=== PATIENT | female | born 1945 | race Caucasian/White ===

== ENCOUNTER 2018-05-14 06:09 | Inpatient (IN) | payer OTHER ==
[2018-05-11 13:33] VITALS: BMI 28.1
[2018-05-14] MEDS ORDERED: HEPARIN NA (PORCINE) 5,000 UNITS/ML 1ML VIAL ONE (07:15)
[2018-05-14] MEDS ORDERED: BENZOIN TINCTURE SWABSTICK TP ONE (07:16)
[2018-05-14] MEDS ORDERED: THROMBIN (BOVINE) 5,000 UNIT VIAL TP ONE ×2 (07:16→09:50)
[2018-05-14] MEDS ORDERED: BUPIVACAINE HCL/PF 0.25% (2.5MG/ML) 10 ML VIAL ONE (07:16)
[2018-05-14] MEDS ORDERED: fentaNYL CITRATE 250 MCG/5 ML VIAL ONE (07:28)
[2018-05-14] MEDS ORDERED: ROCURONIUM BROMIDE 50 MG/5 ML VIAL ONE (07:29)
[2018-05-14] MEDS ORDERED: LIDOCAINE HCL/PF 2% SDV 5ML VIAL ONE (07:29)
[2018-05-14] MEDS ORDERED: DEXAMETHASONE SOD PHOSPHATE 4 MG/1 ML VIAL ONE ×2 (07:29→08:16)
[2018-05-14] MEDS ORDERED: MIDAZOLAM HCL 2 MG/2 ML SINGLE DOSE VIAL ONE (07:29)
[2018-05-14] MEDS ORDERED: ONDANSETRON 4 MG/2 ML VIAL ONE (07:29)
[2018-05-14] MEDS ORDERED: SUCCINYLCHOLINE CHLORIDE 200 MG/10 ML VIAL ONE (07:29)
[2018-05-14] MEDS ORDERED: PROPOFOL 20 ML ONE ×11 (07:29→10:56)
[2018-05-14] MEDS ORDERED: VANCOMYCIN 1,000 MG VIAL (RESTRICTED TO ID ONLY) ONE (07:38)
[2018-05-14] MEDS ORDERED: ceFAZolin SODIUM 1 GM VIAL ONE (07:38)
[2018-05-14] MEDS ORDERED: TRANEXAMIC ACID 1000 MG/10 ML VIAL ONE (07:38)
[2018-05-14] MEDS ORDERED: VANCOMYCIN 1,000 MG VIAL (RESTRICTED TO ID ONLY) IVPB ONE (07:50)
[2018-05-14] MEDS ORDERED: PHENYLEPHRINE HCL 10 MG/1 ML SINGLE DOSE VIAL ONE (08:25)
[2018-05-14] MEDS ORDERED: HYDROmorphone HCl 2 MG/ML VIAL ONE (08:29)
[2018-05-14] MEDS ORDERED: ceFAZolin SODIUM 1 GM VIAL IVPB ONE (08:35)
[2018-05-14] MEDS ORDERED: TRANEXAMIC ACID 1000 MG/10 ML VIAL IVPB ONE (09:49)
--- NOTE | 2018-05-14 11:32 | PN ---
Progress Note (short form) - Note Progress Note: 72F s/p C4-C5, C5-C6 discectomies; C5 corpectomy; C4, C6 partial corpectomies; C4-C6 anterior cervical decompression and instrumented fusion POD #0. -Admit to ICU x 24 hrs. for airway observation; OK to discharge home or downgrade to floor 05/15/2018 if airway stable. -Maintain head of bed 60 degrees. -Pain medication: per anaesthesia team; no DRIED YEAST SUPERVISOR; NO NSAID's. -DVT PPx: -Mechanical only: ANDREW's, SCD's. -Post-op Ancef x 2 doses. -f/u AM labs. -Incentive spirometry. -PT/OT/Rehab, OOB. -WBAT B/L UE & LE. -d/c Ybarra catheter at midnight; f/u TOV (8 hours max). -Keep dressing clean & dry. -No heavy lifting, bending or twisting. -Advance diet as tolerated. -B/L UE & LE NV checks. -Care per ICU & primary medical hospitalist teams. -Discharge planning: f/u [facility] [place] office Monday05/25/2018; call for appointment; . Narinedr Rbolero MD (Orthopaedic Surgery).
[2018-05-14] MEDS ORDERED: ONDANSETRON 4 MG/2 ML VIAL IVPUSH PRN (11:36)
[2018-05-14] MEDS ORDERED: oxyCODONE HCL 5 MG TABLET PO PRN ×2 (11:36)
[2018-05-14] MEDS ORDERED: NEXIUM PO PRN (11:36)
--- NOTE | 2018-05-14 11:36 | OP ---
Operative Note - Note: Operative Date: 05/14/18 Pre-Operative Diagnosis: 1. Cervical intervertebral disc disorder. 2. Cervical kyphosis. 3. Cervical spondylolisthesis. 4. Cervical radiculopathy. 5. Cervical myelopathy. 6. Functional & neurological decline Operation: 1. C4-C5, C5-C6 discectomies. 2. C5 corpectomy. 3. C4, C6 partial corpectomies. 4. C4-C6 anterior arthrodesis. 5. Insertional biomechanical device (C4-C6). 6. C4-C6 anterior instrumentation. 7. Bone autograft. 8. Bone allograft. 9. Intra-operative fluoroscopy. 10. Intra-operative neural monitoring Post-Operative Diagnosis: Same as Pre-op Surgeon: Narinder Roblero Dot Compliance Manager: Miguel Ángel Roblero Anesthesiologist/PICKER OPERATOR: Willow Alba Anesthesia: General Specimens Removed: C4-C5, C5-C6 disc Estimated Blood Loss (mls): 25 Fluid Volume Replaced (mls): 1,400 (Crystalloid) Operative Report Dictated: Yes
[2018-05-14] MEDS: LACTATED RINGERS SOLUTION 1,000 ML IV SCH (12:56)
[2018-05-14] MEDS: ACETAMINOPHEN 325 MG TABLET (FP) PO SCH ×2 (13:10→17:52)
--- NOTE | 2018-05-14 13:27 | CONSULT ---
Consultation: REQUESTING PROVIDER: Dr Shearer CONSULT REQUEST: We have been asked to medically evaluate this patient for Post op ICU monitor. HISTORY OF PRESENT ILLNESS: 72 year old male with pmhx of HTN presented for cervical spine surgery C3-C4-C5 after 2.5 years of neck and shoulder pain radiating to both shoulders and arms. reports numbness and tingling in right hand fingers.and mild pain 4-5 /10 . Denies any fever, chills, N/V/D/C, denies any chest pain , sob, palpitation , orthopnea , dyspnea, denies any urinary incontinence ,incorporesis , or numbness, tingling in saddle area. denies any weakness in lower or upper ext PMH:HTN PSH: Hysterectomy, cholecystectomy FH: BP , Cancer in sister(breast),Lukemia in mother , bone cancer in her father. Social hx: denies any smoking alcohol or drug abuse Allergis: NKDA REVIEW OF SYSTEMS: numbness and tingling in right hand fingers , sore throat CONSTITUTIONAL: Absent: fever, chills, diaphoresis, generalized weakness, malaise, loss of appetite, weight change HEENT: Absent: rhinorrhea, nasal congestion, throat pain, throat swelling, difficulty swallowing, mouth swelling, ear pain, eye pain, visual changes CARDIOVASCULAR: Absent: chest pain, syncope, palpitations, irregular heart rate, lightheadedness , peripheral edema RESPIRATORY: Absent: cough, shortness of breath, dyspnea with exertion, orthopnea, wheezing, stridor, hemoptysis GASTROINTESTINAL: Absent: abdominal pain, abdominal distension, nausea, vomiting, diarrhea, constipation, melena, hematochezia GENITOURINARY: Absent: dysuria, frequency, urgency, hesitancy, hematuria, flank pain, genital pain MUSCULOSKELETAL: neck pain Absent: myalgia, arthralgia, joint swelling, back pain, SKIN: Absent: rash, itching, pallor HEMATOLOGIC/IMMUNOLOGIC: Absent: easy bleeding, easy bruising, lymphadenopathy, frequent infections ENDOCRINE: Absent: unexplained weight gain, unexplained weight loss, heat intolerance, cold intolerance NEUROLOGIC: Absent: headache, focal weakness or paresthesias, dizziness, unsteady gait, seizure, mental status changes, bladder or bowel incontinence PSYCHIATRIC: Absent: anxiety, depression, suicidal or homicidal ideation, hallucinations. PHYSICAL EXAMINATION Vital Signs - 24 hr 12/05/14/18 05/14/18 06:44 11:30 11:45 Temperature 97.7 F 98.1 F 97.9 F Pulse Rate 72 74 75 Respiratory 20 18 12 Rate Blood Pressure 125/84 125/55 L 123/70 O2 Sat by Pulse 100 97 96 Oximetry (%) 05/14/18 05/14/18 05/14/18 12:00 12:15 12:30 Temperature 98.2 F 98.1 F 97.6 F Pulse Rate 97 H 77 73 Respiratory 13 12 10 Rate Blood Pressure 119/57 L 122/64 115/61 O2 Sat by Pulse 98 96 96 Oximetry (%) GENERAL: Awake, alert, and fully oriented, in no acute distress. HEAD: Normal with no signs of trauma. EYES: Pupils equal, round and reactive to light, extraocular movements intact, sclera anicteric, EARS, NOSE, THROAT: dry MM NECK: Normal range of motion, supple , surgery incision covered with gauze LUNGS: Breath sounds equal, clear to auscultation bilaterally. No wheezes, and no crackles. No accessory muscle use. HEART: Regular rate and rhythm, normal S1 and S2 without murmur, rub or gallop. ABDOMEN: Soft, nontender, not distended, hypoactive bowel sounds, no guarding, MUSCULOSKELETAL: Normal range of motion at all joints. No bony deformities or tenderness. No CVA tenderness. UPPER EXTREMITIES: 2+ pulses, warm, well-perfused. No cyanosis. No clubbing. LOWER EXTREMITIES: 2+ pulses, warm, well-perfused. No calf tenderness. No peripheral edema. NEUROLOGICAL: Cranial nerves II-XII intact. Normal speech. gait not observed strength 5/5 upper and lower ext , sensation intact , reflexes intact. PSYCHIATRIC: Cooperative. Good eye contact. Appropriate mood and affect. SKIN: Warm, dry, Laboratory Results - last 24 hr 05/14/18 05/14/18 06:34 06:45 Blood Type A POSITIVE A POSITIVE Antibody Screen Negative Active Medications Generic Name Dose Route Start Last Admin Trade Name Freq PRN Reason Stop Dose Admin Acetaminophen 650 mg 05/14/18 11:45 05/14/18 13:10 Tylenol - PO 650 mg Q6H DELROY Administration Hydrochlorothiazide 25 mg 05/15/18 10:00 Hctz - PO DAILY DELROY Lactated Ringer's 1,000 mls @ 100 mls/hr 05/14/18 11:45 05/14/18 12:56 Lactated Ringers Solution IV 100 mls/hr ASDIR DELROY Administration Non-Formulary Medication 1 tab 05/15/18 10:00 Metoprolol Succinate [Kapspargo Sprinkle] PO DAILY DELROY Non-Formulary Medication 1 tab 05/14/18 11:36 Nexium 24hr PO PRN PRN DYSPEPSIA Ondansetron HCl 4 mg 05/14/18 11:36 Zofran Injection IVPUSH Q6H PRN NAUSEA AND/OR VOMITING Oxycodone HCl 5 mg 05/14/18 11:36 05/14/18 13:13 Roxicodone - PO 5 mg Q4H PRN Administration PAIN LEVEL 6-10 Oxycodone HCl 10 mg 05/14/18 11:36 Roxicodone - PO Q4H PRN PAIN LEVEL 7 - 10 Tramadol HCl 50 mg 05/14/18 11:36 Ultram - PO Q6H PRN PAIN LEVEL 1-5 ASSESSMENT/PLAN: 72 year old male with pmhx of HTn presented to the hospital for cervical spine surgery admitted to ICU for monitoring # C4-C5, C5-C6 discectomies POD #0 * estimated blood loss 25 cc volum replenished 1400 CC/hr crystaloid * pt is doing well ,5/5 strength upper and lower ext * reports some numbness in right hand fingers but no weakness * neck FROM * pain control per anesthesia * bed rest * low sodium diet * BP monitor * monitoring tech * No NSAIDS * IV fluids 100 CC/hr LR # BP * controlled , resume home meds HCTZ, Norvasc # FEN * f: RL @ 100 CC/hr * E: Monitor * N: Low sodium diet # proph * Dvts: SCDS , no chemical prophylaxis # Dispo * Monitor in ICU 24 hour * if no complications , transfer to floor tomorrow Dispo: We will continue to follow the patient. Thank you for this consultative opportunity. Visit type - Emergency Visit Emergency Visit: No - New Patient This patient is new to me today: Yes Date on this admission: 05/14/18 - Critical Care Critical Care patient: Yes Total Critical Care Time (in minutes): 45 Critical Care Statement: The care of this patient involved high complexity decision making to prevent further life threatening deterioration of the patient 's condition and/or to evaluate & treat vital organ system(s) failure or risk of failure.
--- NOTE | 2018-05-14 16:52 | HP ---
CHIEF COMPLAINT: Neck and shoulder pain, scheduled cervical discectomies with Dr. Roblero HISTORY OF PRESENT ILLNESS: 72 year old female with a PMH significant for HTN presented to [facility] for scheduled cervical discectomies with Dr. Roblero. She reports having neck and shoulder pain for about 2 and a half years. Procedure was without complications , minimal blood loss. Now admitted to the ICU for post-op monitoring. Patient is doing well and denies pain. She has been able to have some fluids since her procedure. Recent Travel: No PAST MEDICAL HISTORY: Hypertension PAST SURGICAL HISTORY: Hysterectomy Cholecystectomy Social History: Smoking: Denies Alcohol: Denies Drugs: Denies Family History: Mother: Leukemia Father: Osteosarcoma Sister: Breast Cancer Allergies No Known Allergies Allergy (Verified 05/11/18 13:37) HOME MEDICATIONS: Home Medications Medication Instructions Recorded Hydrochlorothiazide [Hctz -] 25 mg PO DAILY 05/11/18 Metoprolol Succinate [Kapspargo 1 tab PO DAILY 05/11/18 Sprinkle] Nexium 24Hr 1 tab PO PRN PRN 05/11/18 REVIEW OF SYSTEMS CONSTITUTIONAL: Absent: fever, chills, diaphoresis, generalized weakness, malaise, loss of appetite, weight change HEENT: Absent: rhinorrhea, nasal congestion, throat pain, throat swelling, difficulty swallowing, mouth swelling, ear pain, eye pain, visual changes CARDIOVASCULAR: Absent: chest pain, syncope, palpitations, irregular heart rate, lightheadedness , peripheral edema RESPIRATORY: Absent: cough, shortness of breath, dyspnea with exertion, orthopnea, wheezing, stridor, hemoptysis GASTROINTESTINAL: Absent: abdominal pain, abdominal distension, nausea, vomiting, diarrhea, constipation, melena, hematochezia GENITOURINARY: Absent: dysuria, frequency, urgency, hesitancy, hematuria, flank pain, genital pain MUSCULOSKELETAL: (+) mild post op pain in her neck Absent: myalgia, arthralgia, joint swelling, back pain, neck pain SKIN: Absent: rash, itching, pallor HEMATOLOGIC/IMMUNOLOGIC: Absent: easy bleeding, easy bruising, lymphadenopathy, frequent infections ENDOCRINE: Absent: unexplained weight gain, unexplained weight loss, heat intolerance, cold intolerance NEUROLOGIC: Absent: headache, focal weakness or paresthesias, dizziness, unsteady gait, seizure, mental status changes, bladder or bowel incontinence PSYCHIATRIC: Absent: anxiety, depression, suicidal or homicidal ideation, hallucinations. PHYSICAL EXAMINATION Vital Signs - 24 hr 05/14/18 05/14/18 05/14/18 06:44 11:30 11:45 Temperature 97.7 F 98.1 F 97.9 F Pulse Rate 72 74 75 Respiratory 20 18 12 Rate Blood Pressure 125/84 125/55 L 123/70 O2 Sat by Pulse 100 97 96 Oximetry (%) 05/14/18 05/14/18 05/14/18 12:00 12:15 12:30 Temperature 97.8 F 98.1 F 97.6 F Pulse Rate 77 77 73 Respiratory 11 12 10 Rate Blood Pressure 119/57 L 122/64 115/61 O2 Sat by Pulse 98 96 96 Oximetry (%) 05/14/18 14:00 Temperature Pulse Rate 66 Respiratory 12 Rate Blood Pressure 118/62 O2 Sat by Pulse Oximetry (%) GENERAL: Awake, alert, and fully oriented, in no acute distress. HEAD: Normal with no signs of trauma. EYES: Pupils equal, round and reactive to light, extraocular movements intact, sclera anicteric, conjunctiva clear. No lid lag. EARS, NOSE, THROAT: Dry bandage over anterior neck CDI, nares patent, oropharynx clear without exudates. Moist mucous membranes. NECK: Normal range of motion, supple without lymphadenopathy, JVD, or masses. LUNGS: +NC, breath sounds equal, clear to auscultation bilaterally. No wheezes, and no crackles. No accessory muscle use. HEART: Regular rate and rhythm, normal S1 and S2 without murmur, rub or gallop. ABDOMEN: Soft, nontender, not distended, normoactive bowel sounds, no guarding, no rebound, no masses. No hepatomegaly or splenomegaly. : +Castorena draining clear yellow urine MUSCULOSKELETAL: Normal range of motion at all joints. No bony deformities or tenderness. No CVA tenderness. UPPER EXTREMITIES: 2+ pulses, warm, well-perfused. No cyanosis. No clubbing. No peripheral edema. LOWER EXTREMITIES: 2+ pulses, warm, well-perfused. No calf tenderness. No peripheral edema. NEUROLOGICAL: No facial droop, tongue midline, 5/5 strength all 4 extremities, normal speech. Normal gait. PSYCHIATRIC: Cooperative. Good eye contact. Appropriate mood and affect. SKIN: Warm, dry, normal turgor, no rashes or lesions noted, normal capillary refill. Laboratory Results - last 24 hr 05/14/18 05/14/18 06:34 06:45 Blood Type A POSITIVE A POSITIVE Antibody Screen Negative ASSESSMENT/PLAN: 72 year old female with a PMH significant for HTN presented to [facility] for scheduled cervical discectomies with Dr. Roblero. Now admitted to the ICU for post op monitoring. S/p C4 - C5, C5 - C6 discectomies - POD #0 - Given 2 doses of Ancef post-op - Pain management - Apap 650 mg, Tramadol 50 mg, Oxycodone 5 mg and 10 mg q4h PRN - HOB 60 degrees - D/c castorena catheter at midnight - PT, OOB - F/u with Dr. Roblero on Monday, call for an appointment [phone] HTN - Controlled - Continue home medications - HCZT 25 mg PO qday - Metoprolol Succinate 1 Prophylaxis - DVD: SCDs - GI: Nexium FEN - LR @ 100cc/hr - Replete as needed - Soft diet, Na restricted diet Disp: Patient may be appropriate for d/c tomorrow if stable. Visit type - Emergency Visit Emergency Visit: No - New Patient This patient is new to me today: Yes Date on this admission: 05/14/18 - Critical Care Critical Care patient: Yes Total Critical Care Time (in minutes): 20
--- NOTE | 2018-05-14 17:17 | OP ---
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 OPERATION PERFORMED: 1. C5 corpectomy. 2. Partial corpectomy C4, partial corpectomy C6. 3. Insertion of cage. 4. Anterior plating, C3 to C6. 5. Use of biplane fluoroscopy and intraoperative neuromonitoring. ANESTHESIA: General. ANTIBIOTICS GIVEN: Kefzol 2 g, vancomycin 1 g, Decadron 10 mg given. PROCEDURE: The patient correctly identified, brought to the operating room, placed supine on the operating room table. A transverse box was placed behind the scapulae and the neck was extended. Neuromonitoring revealed no changes in the neuromonitoring features A routine prep with Betadine scrub solution, wiped with alcohol and DuraPrep applied. Window drape applied to the neck. An oblique incision was made into the Yadi line at the level of the cricothyroid interval. Dissection was taken through subplatysma. The platysma was split longitudinally. This enabled easy access to the prevertebral fascia. The longus colli was gently retracted and with unipolar Bovie dissected off the vertebral bodies, left- and right-hand side. A pin was placed and found to be seated in the C5-6 disk. Once this had been completed, the retractors were placed with easy medial/lateral retraction. The [place] pins were placed in C3 and C6. These were verified with fluoroscopic x-rays to show positioning of the pins as well as positioning of that the correct level of disk and vertebral bodies to be resected. It must be noted as seen on the MR scan as well as the x-ray a diskectomy would not suffice and provide adequate decompression. The entire vertebral body had to be taken out because of the retroverted position. Using a Midas Matchstick bur, 2 longitudinal gutters were placed right down to the posterior cortical bone of the C5 vertebral body. The disk at C4-5 and the disk at C5-6 were appropriately resected. The remaining bone was removed piecemeal with the rongeur, this for bone-grafting purposes. The problem seen on the MR scan of the lesion appeared to be a small trapped node which itself caused significant shortening in the remaining bone of the actual C5 vertebral body, another reason for a corpectomy having been performed, as the screw fixation at C5 would have failed. Once the disks were removed at C4-5 and C5-6, a complete resection of the actual C5 vertebral body was achieved. The entire theca was freed. At first the longitudinal ligament was ta michael down. The disks at C4 required some resection of bone because of the osteophyte-disk complex nature and part of the C6 vertebral body also likewise needed possible removal of vertebral body bone. A size 12 x 14 x 24 6-degree Quinn[place]ec cage inserted. This was packed with autologous bone, that was the bone harvested from the vertebral bodies, and this as gently tamped into position. The distractor device was first seated into the vertebral bodies of C4andd C6 and the distractor device once removed allowed ligamentotaxis to collapse onto the cage and the cage was snugly held and solidly fixed. A size 20 mm Simpliciti was placed onto the vertebral bodies, 4 screws. These were precision screws, 12-mm screws, seated and self-tapping into the C4 vertebral body and 2 at the C6 vertebral body, providing a solid fixation. Hemostasis was completely achieved. The wounds were thoroughly lavaged throughout the procedure. The closure was followed: Deep layer with 3-0 Vicryl, platysma and subcutaneous 3-0 Vicryl, skin 3-0 Monocryl with Steri-Strips. No drains utilized. Blood loss minimal, no more than 50 mL. Operation went well. It must be noted that at the end of the procedure, it was reported to me by the neuromonitoring team that the actual neural numbers improved significantly, almost to baseline numbers after the corpectomy and caging was performed. MD SELENA [id number] KIM
[2018-05-15] MEDS: ACETAMINOPHEN 325 MG TABLET (FP) PO SCH ×4 (05:54→13:07)
[2018-05-15 06:27] LABS: HEMATOCRIT 40.8 % (32.4-45.2); HEMOGLOBIN 13.6 GM/dL (10.7-15.3); MCH 29.3 pg (25.7-33.7); MCHC 33.4 g/dl (32.0-36.0); MEAN CELL VOLUME 87.7 fl (80-96); MEAN PLT VOLUME 8.8 fl (7.5-11.1); PLATELET COUNT 279 K/MM3 (134-434); RBC 4.64 M/mm3 (3.60-5.2); RDW 12.8 % (11.6-15.6); WHITE BLOOD COUNT 13.9 K/mm3 (4.0-10.0)
[2018-05-15 06:55] LABS: ANION GAP 4 MMOL/L (8-16); BLOOD UREA NITROGEN 14 mg/dL (7-18); CALCIUM 9.2 mg/dL (8.5-10.1); CHLORIDE 102 mmol/L (98-107); CO2 33 mmol/L (21-32); CREATININE 0.8 mg/dL (0.55-1.3); GLUCOSE,RANDOM 110 mg/dL (74-106); POTASSIUM 3.1 mmol/L (3.5-5.1); SODIUM 139 mmol/L (136-145)
[2018-05-15] MEDS ORDERED: POTASSIUM CHLORIDE TABS 20 MEQ TABLET.ER (FP) PO ONE ×2 (06:59→08:45)
[2018-05-15] MEDS ORDERED: METOPROLOL SUCCINATE PO SCH (10:00)
[2018-05-15] MEDS ORDERED: HYDROCHLOROTHIAZIDE 25 MG TABLET (FP) PO SCH (10:00)
[2018-05-15 10:22] VITALS: TEMP 97.6
--- NOTE | 2018-05-15 11:24 | PN ---
Progress Note (short form) - Note Progress Note: Post op day#1.S/P C4-C6 ACDF under GA uneventful.P80,BP 120/65 and Spo2 97 on RA.Patient stable and c/on pain score of 3-4/10 for which she is on medication.No any anesthesia related problem.Patient DC from the anesthesia care.
--- NOTE | 2018-05-15 12:00 | DS ---
Physical Exam: SUBJECTIVE: Patient seen and examined - feels well - no complaints - minimal pain. No CP/Palps/abdo pain/nausea/vomting. Tolerating po intake. Improvement in tingling of fingers RUE. OBJECTIVE: Vital Signs Period Temp Pulse Resp BP Sys/Han Pulse Ox Last 24 Hr 97.4 F-98.2 F 61-97 10-14 106-132/52-74 96-100 PHYSICAL EXAM GENERAL: The patient is awake, alert, and fully oriented, in no acute distress. HEAD: Normal with no signs of trauma. EYES: PERRL, extraocular movements intact ENT: Dressing over anterior aspect of neck dry LUNGS: Breath sounds equal, clear to auscultation bilaterally, no wheezes, no crackles, no accessory muscle use. HEART: Regular rate and rhythm, S1, S2 ABDOMEN: Soft, nontender, nondistended, normoactive bowel sounds, no guarding, no rebound. EXTREMITIES: 2+ pulses, warm, well-perfused, no edema. NEUROLOGICAL: Cranial nerves II through XII grossly intact. Normal speech, Tone/ Power normal all 4 extremities Minutes to complete discharge: 45 Discharge Summary Reason For Visit: CERVICAL DISC DISORDER Current Active Problems S/P discectomy (Acute) Hospital Course: HOSPITAL COURSE: s/p C4-C5, C5-C6 discectomies; C5 corpectomy; C4, C6 partial corpectomies; C4- C6 anterior cervical decompression and instrumented fusion POD #1 72 year old female with a PMH significant for HTN presented to [facility] for elective cervical discectomies performed by Dr. Roblero. She was admitted to the ICU for neuro-observation after uneventful surgery. She is recovering well and is currently POD 1 s/p C4/5 and C5/6 discectomies. She reports minimal pain. She is tolerating oral intake without any abdominal pain/nausea/vomiting. She had mildly decreased potassium levels which were repleted. She is ambulating and voiding well. Given her stable medical and neurological status, she is ready for discharge home with follow up with Dr. Roblero on Monday, patient to call for an appointment [phone]. She was also advised to follow with her PCP for evaluation and electrolyte check. She was continued on home anti-hypertensive medications HCTZ and Metoprolol, with Tylenol prn for pain. Discharge plan discussed with and agreed to by Dr. Roblero. Date of Admission:05/14/18 Date of Discharge: 05/15/18 Condition: Good - Instructions Diet, Activity, Other Instructions: Keep dressing clean & dry No heavy lifting, bending or twisting. Referrals: Manny Villasenor [Non Staff, Medical] - 1 Week Narinder Roblero MD [Staff Physician] - 05/25/18 [facility]; call for appointment; .) Disposition: HOME - Home Medications Comprehensive Discharge Medication List: Ambulatory Orders Hydrochlorothiazide [Hctz -] 25 mg PO DAILY 05/11/18 Metoprolol Succinate [Kapspargo Sprinkle] 100 mg PO DAILY 05/11/18 Acetaminophen [Tylenol .Regular Strength -] 650 mg PO Q6H tablet 05/15/18 Problem List - Problems (1) S/P discectomy Code(s): Z98.890 - OTHER SPECIFIED POSTPROCEDURAL STATES This patient is new to me today: Yes Date on this admission: 05/15/18 Emergency Visit: No Critical Care patient: No - Discharge Referral Referred to [facility] No
--- NOTE | 2018-05-15 12:25 | PN ---
Teaching Attending Note Name of Resident: Miguel Ángel Lindsay ATTENDING PHYSICIAN STATEMENT I saw and evaluated the patient. I reviewed the resident's note and discussed the case with the resident. I agree with the resident's findings and plan as documented. SUBJECTIVE: Pt seen and examined in the ICU. Pain controlled. Ambulated around unit. Tolerating PO. OBJECTIVE: Vital Signs Period Temp Pulse Resp BP Sys/Han Pulse Ox Last 24 Hr 97.4 F-98.1 F 61-76 10-14 106-132/52-74 96-100 Intake & Output 05/12/18 05/13/18 05/14/18 05/15/18 23:59 23:59 23:59 23:59 Intake Total 2665 1200 Output Total 850 450 Balance 1815 750 Gen: NAD at rest Heart: RRR Lung: decreased breath sounds at the bases Abd: soft, nontender Ext: no edema CBC, BMP 05/15/18 05:15 05/15/18 05:15 Active Medications Acetaminophen (Tylenol -) 650 mg PO Q6H [facility] Last Admin: 05/15/18 08:00 Dose: 650 mg Hydrochlorothiazide (Hctz -) 25 mg PO DAILY [facility] Last Admin: 05/15/18 09:28 Dose: 25 mg Lactated Ringer's (Lactated Ringers Solution) 1,000 mls @ 100 mls/hr IV ASDIR [facility] Last Admin: 05/14/18 12:56 Dose: 100 mls/hr Metoprolol Succinate (Toprol Xl -) 100 mg PO DAILY [facility] Last Admin: 05/15/18 09:28 Dose: 100 mg Ondansetron HCl (Zofran Injection) 4 mg IVPUSH Q6H PRN PRN Reason: NAUSEA AND/OR VOMITING Oxycodone HCl (Roxicodone -) 5 mg PO Q4H PRN PRN Reason: PAIN LEVEL 6-10 Last Admin: 05/14/18 13:13 Dose: 5 mg Oxycodone HCl (Roxicodone -) 10 mg PO Q4H PRN PRN Reason: PAIN LEVEL 7 - 10 Tramadol HCl (Ultram -) 50 mg PO Q6H PRN PRN Reason: PAIN LEVEL 1-5 Last Admin: 05/15/18 00:00 Dose: 50 mg ASSESSMENT AND PLAN: Cervical Intervertebral Disc Disorder with Kyposis/Spondylolisthesis/ Radiculopathy/Myelopathy s/p C4-C5, C5-C6 Discectomies/Anterior Instrumentation/Insertion Biomechanical Device HTN - pain control - incentive spirometry - PO as tolerated - DVT prophylaxis - d/c planning in progress
--- NOTE | 2018-05-15 12:33 | PN ---
Physical Exam: SUBJECTIVE: Patient seen and examined at bedside, recovering well from surgery. Re-identifies longstanding intermittent tingling of fingers of right hand. Some residual pain at surgical site well-controlled with medication, appetite has not yet fully recovered, no difficulty urinating, no flatus or BM as yet. Otherwise comfortable. OBJECTIVE: Vital Signs Period Temp Pulse Resp BP Sys/Han Pulse Ox Last 24 Hr 97.4 F-98.1 F 61-77 10-14 106-132/52-74 96-100 GENERAL: A&Ox3, NAD HEAD: NC/AT EYES: PERRLA, EOMI ENT: MMM NECK: anterior cervical dressing c/d/i LUNGS: CTA b/l HEART: RRR no m/r/g ABDOMEN: +bs, soft, NT, ND EXTREMITIES: 2+ pulses, warm, well-perfused, no edema. NEUROLOGICAL: technical laboratory asst, motor, sensory systems w/o focal deficit PSYCH: Normal mood, normal affect. SKIN: Warm, dry, normal turgor, no rashes or lesions noted Laboratory Results - last 24 hr 05/15/18 05/15/18 05:15 05:15 WBC 13.9 H RBC 4.64 Hgb 13.6 Hct 40.8 MCV 87.7 MCH 29.3 MCHC 33.4 RDW 12.8 Plt Count 279 MPV 8.8 Sodium 139 Potassium 3.1 L Chloride 102 Carbon Dioxide 33 H Anion Gap 4 L BUN 14 Creatinine 0.8 Creat Clearance w eGFR > 60 Random Glucose 110 H Calcium 9.2 Active Medications Generic Name Dose Route Start Last Admin Trade Name Freq PRN Reason Stop Dose Admin Acetaminophen 650 mg 05/14/18 11:45 05/15/18 08:00 Tylenol - PO 650 mg Q6H DELROY Administration Hydrochlorothiazide 25 mg 05/15/18 10:00 05/15/18 09:28 Hctz - PO 25 mg DAILY DELROY Administration Lactated Ringer's 1,000 mls @ 100 mls/hr 05/14/18 11:45 05/14/18 12:56 Lactated Ringers Solution IV 100 mls/hr ASDIR DELROY Administration Metoprolol Succinate 100 mg 05/15/18 10:00 05/15/18 09:28 Toprol Xl - PO 100 mg DAILY DELROY Administration Ondansetron HCl 4 mg 05/14/18 11:36 Zofran Injection IVPUSH Q6H PRN NAUSEA AND/OR VOMITING Oxycodone HCl 5 mg 05/14/18 11:36 05/14/18 13:13 Roxicodone - PO 5 mg Q4H PRN Administration PAIN LEVEL 6-10 Oxycodone HCl 10 mg 05/14/18 11:36 Roxicodone - PO Q4H PRN PAIN LEVEL 7 - 10 Tramadol HCl 50 mg 05/14/18 11:36 05/15/18 00:00 Ultram - PO 50 mg Q6H PRN Administration PAIN LEVEL 1-5 ASSESSMENT/PLAN: 72 y/o F w/ PMHx HTN POD 1 s/p C3-C5 anterior cervical discectomies, no complications, recovering well. #POD 1 s/p C3-C5 anterior cervical discectomies -elevate HOB 45 degrees -early ambulation -pain control w/ oxycodone, tramadol PRN -incentive spirometer -adv diet as tolerated -PT -restart home meds #FEN -LR 100 -monitor and replete lytes as necessary -regular soft diet #PPx -SCDs, no pharmacologic AC -GI: not indicated #code -full #dispo -ready for d/c home, otherwise transfer to med/surg Visit type - Emergency Visit Emergency Visit: Yes ED Registration Date: 05/14/18 Care time: The patient presented to the Emergency Department on the above date and was hospitalized for further evaluation of their emergent condition. - New Patient This patient is new to me today: Yes Date on this admission: 05/15/18 - Critical Care Critical Care patient: No
[2018-05-15] MEDS: LACTATED RINGERS SOLUTION 1,000 ML IV SCH (13:11)
[2018-05-15] MEDS: traMADol HCL 50 MG TABLET PO PRN ×2 (15:33)
[2018-05-15 15:37] VITALS: BP 119/71; PULSE 70
--- NOTE | 2018-05-15 17:20 | PATH ---
Surgical Pathology Report Patient Name: BERTO MAYO [facility]. Rec. #: [id number] /Age/Gender: 1945 (Age: 72) / F Account: [id number] Location: [facility] PROGRAM DIRECTOR Taken: 05/14/2018 Received: 05/14/2018 Reported: 05/15/2018 Physicians: Narinder Roblero M.D. Specimen(s) Received DISC C4-C6 Clinical History Cervical disc disorder Final Diagnosis DISC, C4-C6, CORPECTOMY: BENIGN INTERVERTEBRAL DISC TISSUE, DENSE FIBROCONNECTIVE TISSUE, BONE, AND SKELETAL MUSCLE. Electronically Signed Tabitha Pope M.D. Gross Description Received in formalin labeled "disc C4-C6," is a 1.7 x 1.7 x 0.3 cm aggregate of montemayor fragments of fibrocartilaginous tissue. The specimen is submitted in toto in one cassette. /05/14/201805/14/2018
== END 2018-05-15 16:56 | disposition home or self-care (01) | DRG 29 ==
LOC: JSAMEDAYSX 06:09 → JICU 12:01
PROVIDERS: ADMIT Orthopaedic Surgery Orthopaedic Surgery of the Spine
PROC: 0RB30ZZ Excision of Cervical Vertebral Disc, Open Approach (ICD-10-PCS; 2018-05-14)
PROC: 0PH304Z Insertion of Internal Fixation Device into Cervical Vertebra, Open Approach (ICD-10-PCS; 2018-05-14)
PROC: 0RG20AJ Fusion of 2 or more Cervical Vertebral Joints with Interbody Fusion Device, Posterior Approach, Anterior Column, Open Approach (ICD-10-PCS; 2018-05-14)
PROC: B01BZZZ Fluoroscopy of Spinal Cord (ICD-10-PCS; 2018-05-14)
PROC: 4A1004G Monitoring of Central Nervous Electrical Activity, Intraoperative, Open Approach (ICD-10-PCS; 2018-05-14)
PROC: 0PB30ZZ Excision of Cervical Vertebra, Open Approach (ICD-10-PCS; principal; 2018-05-14 08:00)
DX: M54.12 Radiculopathy, cervical region (principal); G95.9 Disease of spinal cord, unspecified; M47.12 Other spondylosis with myelopathy, cervical region; M48.02 Spinal stenosis, cervical region; M40.292 Other kyphosis, cervical region; E87.6 Hypokalemia; M43.12 Spondylolisthesis, cervical region
CPT/HCPCS: 36415; 76000-TC-FY; 80048; 85027; 86850; 86900; 86901; 88304-TC; 97116-GP; 97161-GP; J1644

== ENCOUNTER 2020-02-05 10:00 | Inpatient (IN) | payer OTHER ==
[2020-01-27 12:22] VITALS: BMI 25.6
[~2020-02-05 10:00] MED LIST: CEFAZOLIN 1 GM/D5W 50 ML IVPB ONE; TRANEXAMIC ACID 1000 MG/10 ML VIAL IVPUSH ONE; VANCOMYCIN 1,000 MG in DEXTROSE 5%-WATER - 250 ML IVPB ONE
--- OUTSIDE RECORDS SUMMARY | 2020-02-12 06:12 | XMS ---
:1945 Author Organization [facility] Care Team Providers Name Role Phone TEA GARCIA RADHA Unavailable Unavailable Re-disclosure Warning The records that you are about to access may contain information from federally- assisted alcohol or drug abuse programs. If such information is present, then the following federally mandated warning applies: This information has been disclosed to you from records protected by federal confidentiality rules (42 CFR part 2). The federal rules prohibit you from making any further disclosure of this information unless further disclosure is expressly permitted by the written consent of the person to whom it pertains or as otherwise permitted by 42 CFR part 2. A general authorization for the release of medical or other information is NOT sufficient for this purpose. The Federal rules restrict any use of the information to criminally investigate or prosecute any alcohol or drug abuse patient.The records that you are about to access may contain highly sensitive health information, the redisclosure of which is protected by Article 27-F of the [facility] Public Health law. If you continue you may haveaccess to information: Regarding HIV / AIDS; Provided by facilities licensed or operated by the [facility] Office of Mental Health; or Provided by the [facility] Office for People With Developmental Disabilities. If such information is present, then the following [facility] mandated warning applies: This information has been disclosed to you from confidential records which are protected by state law. State law prohibits you from making any further disclosure of this information without the specific written consent of the person to whom it pertains, or as otherwise permitted by law. Any unauthorized further disclosure in violation of state law may result in a fine or care home sentence or both. A general authorization for the release of medical or other information is NOT sufficient authorization for further disclosure. Encounters Encounter Providers Location Date Indications Data Source(s ) Outpatient Attender: RADHA Gomez 04/04/2019 [facility] fredrick METCALF MEIRAdmitter: 04:15:00 PM Med [facility] RADHA TEA EST MEIRReferrer: RADHA TEA RADHA Insurance Providers Payer name Policy type Policy ID Covered Covered constitution party's Policy P mya / Coverage constitution party ID relationship to [employer] Inf ormation type vuong [employer] MEBNVYBZ SP [id number] MEDICARE O [id number] Problems, Conditions, and Diagnoses Code Display Name Description Problem Type Effective Dates Data Source(s) R12 Heartburn HEARTBURN Diagnosis 04/04/2019 04:15:00 [facility] Results ID Date Data Source [id number] 02/08/2020 10:27:00 AM EDT [facility] Name Value Range Interpretation Description Data Sup porting Code Source(s) Document(s ) SARS [facility] coronavirus 2 RNA This lab was ordered by TATIANA NICHOLS and reported by [facility]. ID Date Data Source [id number] 02/01/2020 08:25:00 AM EDT [facility] Name Value Range Interpretation Description Data Sup porting Code Source(s) Document(s ) SARS [facility] coronavirus 2 RNA This lab was ordered by TATIANA NICHOLS and reported by [facility]. Procedure Social History Code Duration Value Status Description Data Source(s ) Smoking Unknown if ever completed Unknown if ever [facility] amberly [facility] smoked [facility]
[2020-02-12] MEDS ORDERED: LOCK ITEM NR ONE (06:38)
[2020-02-12] MEDS ORDERED: BUPIVACAINE LIPOSOME/PF (EXPAREL) 266 MG/20 ML VIAL ONE (06:44)
[2020-02-12] MEDS ORDERED: MIDAZOLAM HCL 2 MG/2 ML SINGLE DOSE VIAL ONE (06:44)
[2020-02-12] MEDS ORDERED: SODIUM CHLORIDE 0.9% P/F 10 ML VIAL IJ ONE ×2 (06:44→07:27)
[2020-02-12] MEDS ORDERED: PROPOFOL 20 ML ONE ×4 (07:15→09:08)
[2020-02-12] MEDS ORDERED: PHENYLEPHRINE HCL 10 MG/1 ML SINGLE DOSE VIAL ONE (07:26)
[2020-02-12] MEDS ORDERED: ePHEDrine SULFATE 50 MG/1 ML AMPULE ONE (07:26)
[2020-02-12] MEDS ORDERED: SUCCINYLCHOLINE CHLORIDE 200 MG/10 ML SYRINGE ONE ×2 (07:27→07:53)
--- NOTE | 2020-02-12 07:47 | HP ---
History & Physical Update - History History: No Change - Physical Physical: No Change - Assessment Assessment: No Change - Plan Plan: No Change
[2020-02-12] MEDS ORDERED: BUPIVACAINE HCL/PF 0.5% (5MG/ML) 10 ML VIAL ONE (07:51)
[2020-02-12] MEDS ORDERED: EPHEDRINE SULFATE/0.9% NACL/PF 50 MG/10 ML SYRINGE NR ONE (07:53)
[2020-02-12] MEDS ORDERED: ceFAZolin SODIUM 1 GM VIAL ONE ×2 (08:19→09:56)
[2020-02-12] MEDS ORDERED: ONDANSETRON 4 MG/2 ML VIAL ONE (08:19)
[2020-02-12] MEDS ORDERED: TRANEXAMIC ACID 1000 MG/10 ML VIAL ONE ×2 (08:19→09:55)
[2020-02-12] MEDS ORDERED: BENZOIN/ALOE VERA/STORAX/TOLU 58 ML BOTTLE ONE (10:08)
--- NOTE | 2020-02-12 10:19 | OP ---
Operative Note - Note: Operative Date: 02/12/20 Pre-Operative Diagnosis: OA Right Knee Operation: Right TKR Findings: OA knee Implants: Merle Femur3 Tibia4 [id number] Surgeon: Narinder Roblero Refrigeration Manager: Miguel Ángel Roblero Anesthesiologist/PRODUCTION GRAPHIC DESIGNER: José Miguel Kirkpatrick Anesthesia: Spinal Estimated Blood Loss (mls): 0 Drains & Tubes with Location: 10F hemovac Fluid Volume Replaced (mls): 2 Operative Report Dictated: Yes
[2020-02-12] MEDS ORDERED: oxyCODONE HCL 5 MG TABLET PO PRN (11:02)
[2020-02-12] MEDS ORDERED: ONDANSETRON 4 MG/2 ML VIAL IVPUSH PRN ×2 (11:02→11:15)
[2020-02-12] MEDS ORDERED: PATIENT'S OWN MEDICATION (NON-FORMULARY) (Esomeprazole Magnesium [Nexium 24hr] 20 MG) PO PRN (11:12)
[2020-02-12] MEDS ORDERED: MAG HYDROX/AL HYDROX/SIMETH 30 ML UNIT-DOSE CUP PO PRN (11:15)
[2020-02-12] MEDS ORDERED: MAGNESIUM HYDROX 2400MG/30ML ORAL SUSPENSION 30 ML CUP PO PRN (11:15)
[2020-02-12] MEDS ORDERED: LACTATED RINGERS SOLUTION 1,000 ML IV SCH (11:15)
--- NOTE | 2020-02-12 11:50 | OP ---
DATE OF OPERATION: 02/12/2020 SURGEON: Narinder Roblero MD DECATOR OPERATOR: Miguel Ángel Roblero MD PREOPERATIVE DIAGNOSIS: Osteoarthritis, right knee, with fixed flexed deformity and 5-degree fixed valgus deformity. POSTOPERATIVE DIAGNOSIS: Osteoarthritis, right knee, with fixed flexed deformity and 5-degree fixed valgus deformity. OPERATION PERFORMED: Right posterior stabilized total knee arthroplasty (cemented Merle). (81081) ANESTHESIA: Conscious sedation with peripheral nerve block and spinal anesthesia. ANTIBIOTICS GIVEN: Ancef 2 g preop, 1 g of Ancef given at the time of release of the tourniquet. OPERATION DETAILS: Patient correctly identified, brought in the operating room. Right lower extremity was prepped, draped in the routine manner with Betadine scrub, wiped with alcohol, and DuraPrep applied. Free drape to the right lower extremity performed. Preop evaluation revealed a 10-degree fixed flexion deformity and 10-degree fixed valgus deformity. In the supine position with the hip and knee flexed, the incision was made 5 cm above the superior pole of the patella to just distal to the tibial tubercle in a longitudinal fashion. Subcutaneous tissue was opened and the epimysium of the vastus medialis identified. The epimysium dissected off the muscle right to the posterior aspect of the muscle. The proximomedial tibial soft tissues were released with a soft tissue envelope being developed, and the course of the dissection then curved posteriorly at the level of the inferior pole of the patella to leave about a 2-cm cuff of tissue for reattachment, that is, the vastus medialis reattachment to the retinaculum at the time of closure. The knee was flexed, severe tricompartmental osteoarthritis encountered. The actual soft tissue bed was peppered and tattooed with what appeared to be chalky white calcific material, most likely due to steroid injection tattooing. Using the Leapset instrumentation, the tibia was first cut in neutral. The tibia was cut and prepared to receive a size 4 tibial tray. Bony cuts of the femur using the appropriate jig system was set at 10 degrees of distal femoral resection, 4 degrees of valgus, and 3 degrees of external rotation. The jigs enabled easy cutting of the bone bed appropriately. The box for the femoral component was appropriately cut. The femur was then reduced. The flexion gaps and extension gaps were measured as even at about 9 mm. Tension of the medial collateral ligament in flexion was well maintained. The range of movement with the trialing components was 0-120 degrees, ligament stability to coronal and sagittal plane completely intact and normal. The patella was then capsized, and this was a very thin patella. The cut of the patella was required attention to detail, and this was well performed by excising the osteophytes, leaving the angelique of the patella intact, the lollipop jig applied and the lug holes drilled. No breach of the anterior cortex. Patella was thin. Once we were happy with all our sizings and trialings, we went ahead with the definitive cement. This was in one stage, first tibia, followed by femur, then patella. All extraneous cement was removed after it cured. A size 9 posterior stabilized polyethylene insert applied, giving a full range of movement with a negative thumb test, restored anatomical as well as sagittal alignment, and no instability. The wounds were thoroughly lavaged. All extraneous cement had been removed. The closure was as follows: Retinacular tissues with 1 Vicryl, subcutaneous 1 and 2-0 Vicryl, skin 3-0 Monocryl with Steri-Strips. Drainage: A 1/8-inch Hemovac brought out laterally to drain the distal medial aspect of the femur and the soft tissue of the distal femur in this area. MD SELENA Nye/[id number] MTDD
--- NOTE | 2020-02-12 13:34 | HP ---
HISTORY OF PRESENT ILLNESS: 74 year-old female with a PMH significant for HTN, GERD, recurrent UTIs, and OA bilateral knees s/p right total knee replacement today with Dr. Narinder Roblero. Recent Travel: No PAST MEDICAL HISTORY: Hypertension GERD Recurrent UTIs Osteoarthritis bilateral knees PAST SURGICAL HISTORY: Cervical fusion 2018 Cholecystectomy Hysterectomy Social History: independent ADLs Smoking: never Alcohol: no Drugs: no Family History: Mother: Leukemia Father: Osteosarcoma Sister: Breast Cancer Allergies No Known Drug Allergies Allergy (Verified 01/27/20 12:12) HOME MEDICATIONS: Home Medications Medication Instructions Recorded Acetaminophen [Tylenol .Regular 650 mg PO Q6H tablet 05/15/18 Strength -] Esomeprazole Magnesium [Nexium 20 mg PO ASDIR PRN 01/27/20 24Hr] Metoprolol Succinate [Toprol Xl] 100 mg PO DAILY 01/27/20 REVIEW OF SYSTEMS CONSTITUTIONAL: Absent: fever, chills, diaphoresis, generalized weakness, malaise, loss of appetite, weight change HEENT: Absent: rhinorrhea, nasal congestion, throat pain, throat swelling, difficulty swallowing, mouth swelling, ear pain, eye pain, visual changes CARDIOVASCULAR: Absent: chest pain, syncope, palpitations, irregular heart rate, lightheadedness, peripheral edema RESPIRATORY: Absent: cough, shortness of breath, dyspnea with exertion, orthopnea, wheezing, stridor, hemoptysis GASTROINTESTINAL: Absent: abdominal pain, abdominal distension, nausea, vomiting, diarrhea, constipation, melena, hematochezia GENITOURINARY: Absent: dysuria, frequency, urgency, hesitancy, hematuria, flank pain, genital pain MUSCULOSKELETAL: Absent: myalgia, arthralgia, joint swelling, back pain, neck pain SKIN: Absent: rash, itching, pallor HEMATOLOGIC/IMMUNOLOGIC: Absent: easy bleeding, easy bruising, lymphadenopathy, frequent infections ENDOCRINE: Absent: unexplained weight gain, unexplained weight loss, heat intolerance, cold intolerance NEUROLOGIC: Absent: headache, focal weakness or paresthesias, dizziness, unsteady gait, seizure, mental status changes, bladder or bowel incontinence PSYCHIATRIC: Absent: anxiety, depression, suicidal or homicidal ideation, hallucinations. PHYSICAL EXAMINATION Vital Signs - 24 hr 02/12/20 02/12/20 02/12/20 06:40 10:55 11:00 Temperature 98.2 F 98.2 F Pulse Rate 66 66 64 Respiratory 18 18 17 Rate Blood Pressure 160/89 160/89 121/76 O2 Sat by Pulse 100 100 98 Oximetry (%) 02/12/20 02/12/20 02/12/20 11:05 11:10 11:25 Temperature Pulse Rate 66 64 61 Respiratory 14 16 12 Rate Blood Pressure 121/74 128/66 127/66 O2 Sat by Pulse 100 100 100 Oximetry (%) 02/12/20 02/12/20 02/12/20 11:40 11:55 12:20 Temperature 98.2 F Pulse Rate 60 62 67 Respiratory 12 14 14 Rate Blood Pressure 127/60 112/66 133/67 O2 Sat by Pulse 100 100 100 Oximetry (%) GENERAL: Awake, alert, and fully oriented, in no acute distress. HEAD: Normal with no signs of trauma. LUNGS: Breath sounds equal, clear to auscultation bilaterally. No wheezes, and no crackles. No accessory muscle use. HEART: Regular rate and rhythm, normal S1 and S2 without murmur, rub or gallop. ABDOMEN: Soft, nontender, not distended, normoactive bowel sounds, no guarding, no rebound, no masses. No hepatomegaly or splenomegaly. UPPER EXTREMITIES: 2+ pulses, warm, well-perfused. No cyanosis. No clubbing. No peripheral edema. RIGHT LOWER EXTREMITY: Surgical dressing c/d/i; hemovac drain sanguinous drainage; flex/extend toes, sensory intact NEUROLOGICAL: Cranial nerves II-XII intact. Normal speech. Pre op Hgb 15.3 BUN 13 Cr not available Intra op Ancef 2g x 1 EBL <100mL LR 600mL ASSESSMENT/PLAN: 74 year-old female with a PMH significant for HTN, GERD, recurrent UTIs, and OA bilateral knees s/p right total knee replacement today with Dr. Narinder Roblero. Right total knee replacement --POD #0 --perioperative antibiotics per surgery --pain management per surgery --ASA 325mg BID --protonix --bowel regimen --incentive spirometry --Hemovac drain, monitor output Hypertension --continue ToprolXL GERD --protonix Recurrent UTIs --stable, no acute issues FEN Fluids: LR@75mL/hr Electrolytes: replete as indicated Nutrition: regular diet DVT prophylaxis: OOB, ambulation, SCDs, TEDs, ASA 325mg BID Physical therapy Dispo: continues to require inpatient care. Full code. Family Medical History Family History: As Documented Visit type - Medication Review Med list reviewed for High Risk Meds patients 65 and older: Yes - Emergency Visit Emergency Visit: No - New Patient This patient is new to me today: Yes Date on this admission: 02/12/20 - Critical Care Critical Care patient: No
--- NOTE | 2020-02-12 14:11 | PN ---
Progress Note (short form) - Note Progress Note: 74F s/p RIGHT total knee replacement POD #0. -Pain control: per anaesthesia team. -DVT PPx: -Chemical: ASA 81mg PO BID x 6 weeks. -Mechanical: ANDREW's, SCD's. -Incentive spirometry q15 min. -PT/OT/Rehab, OOB. -WBAT RLE. -Post-op Ancef x 3 doses. -f/u post-op TOV: 8 hours max. -f/u AM labs. -Diet as tolerated. -Care per medical hospitalist team. -Discharge planning: f/u [facility] [place] [facility] 7-10 days after discharge; call for appointment . -Will follow. Narinder Roblero MD (Orthopaedic Surgery).
[2020-02-12] MEDS: oxyCODONE HCL 5 MG TABLET PO PRN ×2 (15:15→20:05)
[2020-02-12] MEDS: ACETAMINOPHEN 325 MG TABLET (FP) PO SCH ×2 (15:19→17:40)
[2020-02-12] MEDS: CEFAZOLIN 1 GM/D5W 1 GM/50 ML BAG IVPB SCH ×2 (15:19→21:24)
[2020-02-12] MEDS ORDERED: KETOROLAC TROMETHAMINE 30 MG/1 ML VIAL IVPUSH ONE ×2 (16:59→17:15)
[2020-02-12] MEDS ORDERED: ACETAMINOPHEN 1000 MG/100 ML VIAL (NON FORMULARY) IVPB ONE (17:15)
[2020-02-12] MEDS ORDERED: HYDROmorphone HCl 2 MG/ML VIAL IVPB PRN (18:16)
[2020-02-12] MEDS: SENNOSIDES/DOCUSATE COMBO (SENNA PLUS) TABLET (UD) PO SCH (21:24)
[2020-02-12] MEDS: ASPIRIN 325 MG TABLET PO SCH (21:24)
[2020-02-13] MEDS: ACETAMINOPHEN 325 MG TABLET (FP) PO SCH ×4 (00:13→17:21)
[2020-02-13] MEDS ORDERED: LOCK ITEM NR ONE (03:00)
[2020-02-13] MEDS: CEFAZOLIN 1 GM/D5W 1 GM/50 ML BAG IVPB SCH (04:20)
[2020-02-13 07:41] LABS: HEMATOCRIT 38.2 % (32.4-45.2); HEMOGLOBIN 12.8 GM/dl (10.7-15.3); MCH 30.4 pg (25.7-33.7); MCHC 33.7 g/dl (32.0-36.0); MEAN CELL VOLUME 90.2 fl (80-96); MEAN PLT VOLUME 8.7 fl (7.5-11.1); PLATELET COUNT 283 K/MM3 (134-434); RBC 4.23 M/mm3 (3.60-5.2); RDW 11.9 % (11.6-15.6); WHITE BLOOD COUNT 11.6 K/mm3 (4.0-10.8)
[2020-02-13 07:52] LABS: CALCIUM 9.8 mg/dl (8.5-10); CREATININE 0.8 mg/dl (0.55-1.3); MAGNESIUM 1.7 mg/dL (1.8-2.4); POTASSIUM 3.5 mmol/L (3.5-5.1)
--- NOTE | 2020-02-13 08:55 | PN ---
Physical Exam: SUBJECTIVE: Patient seen and examined oob to chair. Pain is well-managed with PO meds given. OBJECTIVE: Vital Signs Period Temp Pulse Resp BP Sys/Han Pulse Ox Last 24 Hr 97.7 F-98.2 F 60-72 12-19 112-160/58-89 93-100 GENERAL: Awake, alert, and fully oriented, in no acute distress. HEAD: Normal with no signs of trauma. LUNGS: Breath sounds equal, clear to auscultation bilaterally. No wheezes, and no crackles. No accessory muscle use. HEART: Regular rate and rhythm, normal S1 and S2 without murmur, rub or gallop. ABDOMEN: Soft, nontender, not distended, normoactive bowel sounds, no guarding, no rebound, no masses. No hepatomegaly or splenomegaly. UPPER EXTREMITIES: 2+ pulses, warm, well-perfused. No cyanosis. No clubbing. No peripheral edema. RIGHT LOWER EXTREMITY: Surgical dressing c/d/i; hemovac drain sanguinous drainage; flex/extend toes, sensory intact NEUROLOGICAL: Cranial nerves II-XII intact. Normal speech. Laboratory Results - last 24 hr 02/13/20 02/13/20 07:11 07:11 WBC 11.6 H RBC 4.23 Hgb 12.8 Hct 38.2 MCV 90.2 MCH 30.4 MCHC 33.7 RDW 11.9 Plt Count 283 MPV 8.7 Sodium 136 Potassium 3.5 Chloride 104 Carbon Dioxide 26 Anion Gap 6 L BUN 14.0 Creatinine 0.8 Est GFR (CKD-EPI)AfAm 83.59 Est GFR (CKD-EPI)NonAf 72.12 Random Glucose 126 H Calcium 9.8 Magnesium 1.7 L Active Medications Generic Name Dose Route Start Last Admin Trade Name Freq PRN Reason Stop Dose Admin Acetaminophen 650 mg 02/12/20 12:00 02/13/20 06:39 Tylenol - PO 02/15/20 11:59 650 mg Q6H DELROY Administration Al Hydroxide/Mg Hydroxide 30 ml 02/12/20 11:15 Mylanta Oral Suspension - PO Q4H PRN DYSPEPSIA Aspirin 325 mg 02/12/20 22:00 02/12/20 21:24 Asa - PO 325 mg BID DELROY Administration Hydromorphone HCl 1 mg 02/12/20 18:16 Dilaudid Vial - IVPB Q4H PRN PAIN LEVEL 6-10 Magnesium Hydroxide 30 ml 02/12/20 11:15 Milk Of Magnesia - PO PRN PRN CONSTIPATION Metoprolol Succinate 100 mg 02/13/20 10:00 Toprol Xl - PO DAILY DELROY Ondansetron HCl 4 mg 02/12/20 11:15 Zofran Injection IVPUSH Q6H PRN NAUSEA Pantoprazole Sodium 40 mg 02/13/20 10:00 Protonix - PO DAILY DELROY Senna/Docusate Sodium 2 tablet 02/12/20 22:00 02/12/20 21:24 Pericolace - PO 2 tablet BID DELROY Administration Tramadol HCl 50 mg 02/13/20 08:43 Ultram - PO Q6H PRN PAIN LEVEL 6-10 ASSESSMENT/PLAN: Pre op Hgb 15.3 BUN 13 Cr not available Intra op Ancef 2g x 1 EBL <100mL LR 600mL ASSESSMENT/PLAN: 74 year-old female with a PMH significant for HTN, GERD, recurrent UTIs, and OA bilateral knees s/p right total knee replacement today with Dr. Narinder Roblero. Right total knee replacement --POD #1 --perioperative antibiotics complete --pain management per surgery --ASA 325mg BID --protonix --bowel regimen --incentive spirometry --Hemovac drain, monitor output Hypertension --continue ToprolXL GERD --protonix Recurrent UTIs --stable, no acute issues Hypomagnesemia --replete FEN Fluids: PO intake adequate Electrolytes: replete as indicated Nutrition: regular diet DVT prophylaxis: OOB, ambulation, SCDs, TEDs, ASA 325mg BID Physical therapy Dispo: continues to require inpatient care. Full code. Visit type - Emergency Visit Emergency Visit: No - New Patient This patient is new to me today: No - Critical Care Critical Care patient: No - Medication Review Med list reviewed for High Risk Meds patients 65 and older: Yes
[2020-02-13] MEDS ORDERED: MAGNESIUM OXIDE 400 MG TABLET (FP) PO ONE (09:06)
--- NOTE | 2020-02-13 09:08 | PN ---
Progress Note (short form) - Note Progress Note: POD 1, r tkr Pt seen and examined. Reports significant pain overnight due to her sciatica, minimally improved with current regimen. Pt concerns about taking oxycodone due to stomach issues. Is oob to chair. Voiding without issue. Tolerating PO. Denies cp/sob, n/v/d. Vital Signs Temp 98.6 F 02/13/20 08:59 Pulse 77 02/13/20 08:59 Resp 18 02/13/20 08:59 BP 115/52 L 02/13/20 08:59 Pulse Ox 96 02/13/20 08:59 Intake & Output 02/12/20 02/12/20 02/13/20 11:59 23:59 11:59 Intake Total 500 900 Output Total 30 705 160 Balance 470 195 -160 Weight 154 lb Intake: IV 500 200 Oral 700 Output: Drainage 30 355 160 Right Knee 355 160 Urine 350 Void 350 Other: Voiding Method Toilet Toilet # Unmeasured Voids Void 2 Height 5 ft 5 in Body Mass Index (BMI) 25.6 Weight Measurement Method Standing Scale CBC, BMP 02/13/20 07:11 02/13/20 07:11 Gen: awake alert, nad laying in bed Resp: unlabored on RA Ext: right knee with dressing c/d/i no drainage noted, thigh and calf soft, minimal edema noted in upper thigh. 5/5 dorsi/plantarflexion, 5/5 FHL/EHL, silt b/l les palpable dp/pt b/l. A/P: 74 y/o F w/ PMHx HTN, GERD, recurrent UTIs, and OA bilateral knees now POD 1, s/p right total knee replacement Afebrile, vss labs stable -Pain control: ultram 50mg q6hrs added, oxycodone d/c'ed, tylenol 650mg q6h prn, dilaudid 1mg q4h prn -DVT PPx: Chemical: ASA 81 mg po BID x 6 weeks, Mechanical: ANDREW's, SCD's -Incentive Spirometry -PT/OT/Rehab, OOB -WBAT RLE -Home meds as appropriate -replete electrolytes prn -Care per medical hospitalist team. d/w attending Dr Roblero
[2020-02-13] MEDS: SENNOSIDES/DOCUSATE COMBO (SENNA PLUS) TABLET (UD) PO SCH ×2 (09:27→21:08)
[2020-02-13] MEDS: traMADol HCL 50 MG TABLET PO PRN ×2 (09:28→16:05)
[2020-02-13] MEDS: ASPIRIN 325 MG TABLET PO SCH (09:28)
[2020-02-13] MEDS: PANTOPRAZOLE 40 MG TABLET PO SCH (09:28)
[2020-02-13] MEDS ORDERED: KETOROLAC TROMETHAMINE 15 MG/ML VIAL IVPUSH ONE (17:10)
[2020-02-13] MEDS: ASPIRIN COATED 81 MG TABLET.EC PO SCH (21:08)
[2020-02-14] MEDS: ACETAMINOPHEN 325 MG TABLET (FP) PO SCH ×3 (00:16→11:49)
[2020-02-14 07:22] LABS: HEMATOCRIT 39.8 % (32.4-45.2); HEMOGLOBIN 13.1 GM/dl (10.7-15.3); MCH 29.7 pg (25.7-33.7); MCHC 32.9 g/dl (32.0-36.0); MEAN CELL VOLUME 90.5 fl (80-96); MEAN PLT VOLUME 8.5 fl (7.5-11.1); PLATELET COUNT 271 K/MM3 (134-434)
--- NOTE | 2020-02-14 08:56 | DS ---
Physical Exam: SUBJECTIVE: Patient seen and examined OBJECTIVE: Vital Signs Period Temp Pulse Resp BP Sys/Han Pulse Ox Last 24 Hr 98.0 F-99.5 F 67-77 18-18 115-145/52-66 95-98 PHYSICAL EXAM GENERAL: Awake, alert, and fully oriented, in no acute distress. HEAD: Normal with no signs of trauma. LUNGS: Breath sounds equal, clear to auscultation bilaterally. No wheezes, and no crackles. No accessory muscle use. HEART: Regular rate and rhythm, normal S1 and S2 without murmur, rub or gallop. ABDOMEN: Soft, nontender, not distended, normoactive bowel sounds, no guarding, no rebound, no masses. No hepatomegaly or splenomegaly. UPPER EXTREMITIES: 2+ pulses, warm, well-perfused. No cyanosis. No clubbing. No peripheral edema. RIGHT LOWER EXTREMITY: Surgical dressing c/d/i; flex/extend toes, sensory intact, seen working with PT NEUROLOGICAL: Cranial nerves II-XII intact. Normal speech. LABS Laboratory Results - last 24 hr 02/14/20 06:57 WBC 11.0 H RBC 4.40 Hgb 13.1 Hct 39.8 MCV 90.5 MCH 29.7 MCHC 32.9 RDW 12.0 Plt Count 271 MPV 8.5 HOSPITAL COURSE: Date of Admission:02/12/20 Date of Discharge: 02/14/20 74 year-old female with a PMH significant for HTN, GERD, recurrent UTIs, and OA bilateral knees s/p right total knee replacement with Dr. Narinder Roblero. Right total knee replacement --POD #2 --perioperative antibiotics complete --pain well-managed with PO meds --some post-operative nausea treated with Zofran --ASA 325mg BID x 6 weeks Hypertension --continued ToprolXL GERD --protonix Recurrent UTIs --stable, no acute issues Hypomagnesemia --repleted Minutes to complete discharge: 35 Discharge Summary Problems reviewed: Yes Reason For Visit: OA RIGHT KNEE Condition: Improved - Instructions Diet, Activity, Other Instructions: Dr. Roblero Discharge Instructions for Knee Replacement Post Operative Instructions Physical activity Physical Therapist will come to your home for the first 5 days. You will be set up with outpatient PT at your first post-operative visit. Use assistive devices for ambulation at all times. Weight bearing as tolerated on your surgical side. Do not put pillow under knee. May put pillow under heel. Wound care Leave your surgical dressing in place. Do not change the dressing until seen by your surgeon in the office. No baths or showers. Do not submerge your incision. Do not apply any ointments or lotions to your incision. Please call the office if your dressing is soiled/dirty or is falling off. Apply Graduated Compression Stockings (TEDS) to both lower extremities - remove daily for hygiene ONLY. Diet There are no dietary restrictions. Eat healthy, high-fiber foods. Drink 6 to 8 glasses of liquid each day. This will assist in keeping your bowels are regular. Pain management Any pain prescription medication ordered should be taken as prescribed for moderate to severe pain. Do not take additional Tylenol while taking Percocet. Take Aspirin 81 mg two times a day for a total of 6 weeks to prevent blood clots. Call Dr. Roblero for any of the following: Severe pain not relieved by medication Fever of 101 or higher Excessive bleeding or drainage on dressing Inability to urinate If you experience chest pain or shortness of breath, please seek emergency care immediately. Please call the office at to confirm your post-op appointment for the week following surgery. Referrals: Miguel Ángel Roblero MD [Staff Physician] - Disposition: HOME - Home Medications Comprehensive Discharge Medication List: Ambulatory Orders Acetaminophen [Tylenol .Regular Strength -] 650 mg PO Q6H tablet 05/15/18 Esomeprazole Magnesium [Nexium 24Hr] 20 mg PO ASDIR PRN 01/27/20 Metoprolol Succinate [Toprol Xl] 100 mg PO DAILY 01/27/20 Prescription Drug Monitoring Program (I-STOP) results: I-STOP not reviewed This patient is new to me today: No Emergency Visit: No Critical Care patient: No - Discharge Referral Referred to [facility] Med P.C.: No
--- NOTE | 2020-02-14 09:15 | PN ---
Progress Note (short form) - Note Progress Note: POD 2, s/p r tkr Pt seen and examined. Reports pain improved with Ultram. Has been having some nausea (reports baseline sensitive stomach and multiple stomach issues). Is oob to chair. Voiding without issue. Tolerating PO. Denies cp/sob, n/v/d. Vital Signs Temp 98.5 F 02/14/20 06:00 Pulse 75 02/14/20 06:00 Resp 18 02/14/20 08:33 BP 145/65 02/14/20 06:00 Pulse Ox 98 02/14/20 08:33 Intake & Output 02/13/20 02/13/20 02/14/20 11:59 23:59 11:59 Intake Total 750 Output Total 160 160 5 Balance -160 -160 745 Intake: IVPB 50 Oral 700 Output: Drainage 160 160 5 Right Knee 160 160 5 Other: Voiding Method Toilet Toilet Toilet # Unmeasured Voids Void 2 1 Gen: awake alert, nad laying in bed Resp: unlabored on RA Ext: right knee with dressing c/d/i no drainage noted, thigh and calf soft, minimal edema noted in upper thigh. 5/5 dorsi/plantarflexion, 5/5 FHL/EHL, silt b/l les palpable dp/pt b/l. Drain in place with scant serosanguinous drainage in reservoir, drain removed, tip intact, new 4x4 placed, [place] wrap adjusted. CBC, BMP 02/14/20 06:57 02/13/20 07:11 A/P: 74 y/o F w/ PMHx HTN, GERD, recurrent UTIs, and OA bilateral knees now POD 2, s/p right total knee replacement Afebrile, vss labs stable d/c discussed at length, pt verbalized understanding d/w attending Dr Roblero
[2020-02-14] MEDS: traMADol HCL 50 MG TABLET PO PRN (09:37)
[2020-02-14] MEDS: SENNOSIDES/DOCUSATE COMBO (SENNA PLUS) TABLET (UD) PO SCH (09:37)
[2020-02-14] MEDS: ASPIRIN COATED 81 MG TABLET.EC PO SCH (09:37)
[2020-02-14] MEDS: PANTOPRAZOLE 40 MG TABLET PO SCH (09:37)
--- NOTE | 2020-02-14 11:46 | PATH ---
Surgical Pathology Report Patient Name: BERTO MAYO Med. Rec. #: [id number] /Age/Gender: 1945 (Age: 74) / F Account: [id number] Location: [facility] MED-SURG Taken: 02/12/2020 Received: 02/12/2020 Reported: 02/14/2020 Physicians: Narinder Roblero M.D. Specimen(s) Received RIGHT KNEE BONES Clinical History Right knee osteoarthritis Final Diagnosis BONES, KNEE, RIGHT, TOTAL KNEE REPLACEMENT: BONE WITH DEGENERATIVE JOINT DISEASE. Electronically Signed By Tabitha Pope M.D. Gross Description Received in formalin labeled "right knee bones" is a 8 x 8 x 2.5 cm aggregate of multiple portions of bone. The tibial plateau measures 7 x 5 x 1.2 cm. Focal areas of eburnation are identified. The articular surface is montemayor-yellow and focally granular. The underlying trabecular bone is yellow and hard. Senior Radiation Protection Technician sections submitted in one cassette, following decalcification. MARCELA/02/13/2020 truong/02/13/2020
[2020-02-14 12:12] VITALS: PULSE 108; TEMP 98.3
[2020-02-14 12:14] VITALS: BP 140/66
== END 2020-02-14 13:19 | disposition home health service (06) | DRG 470 ==
LOC: FM/S 02-12 06:07
PROVIDERS: ADMIT Orthopaedic Surgery Orthopaedic Surgery of the Spine; ATTEND Orthopaedic Surgery Orthopaedic Surgery of the Spine
PROC: 0SRC0J9 Replacement of Right Knee Joint with Synthetic Substitute, Cemented, Open Approach (ICD-10-PCS; principal; 2020-02-12 08:44)
DX: M17.11 Unilateral primary osteoarthritis, right knee (principal); M21.061 Valgus deformity, not elsewhere classified, right knee; I10 Essential (primary) hypertension; K21.9 Gastro-esophageal reflux disease without esophagitis; Z87.440 Personal history of urinary (tract) infections; E83.42 Hypomagnesemia
CPT/HCPCS: 36415; 73560-TC-RT-FY; 76000-TC-FY; 80048; 83735; 85027; 88305-TC; 88311-TC; 94760; 97010-GP; 97116-GP; 97163-GP; J0131

== ENCOUNTER 2020-02-24 11:00 | Inpatient (IN) | payer OTHER ==
--- NOTE | 2020-02-24 11:08 | PDOC ---
History of Present Illness - General Chief Complaint: Pain Stated Complaint: RIGHT KNEE PAIN Time Seen by Provider: 02/24/20 11:04 History Source: Patient Exam Limitations: No Limitations - History of Present Illness Initial Comments: 02/24/20 11:52 74y F presents with R knee pain - pt is approx 12 days spo knee surgery from Dr. Roblero, she went to follow up with him last week, was prescribed percocet 10/325 as the tramadol was not effective. Patient has been taking it notes that she has been increased feeling wooziness, little lightheadedness and a little disoriented for the last several days. She also endorsed a brief episode of shortness of breath this morning. [place] any associated chest pain, nausea, vomiting, diaphoresis. Any fever, chills, Leg swelling, hemoptysis, cough. Patient states that her right knee pain seems to be getting worse, she has not fallen or had any injury, there is not been any increased swelling. Note that it feels a little warmer but has been similar to her postop course. Past History - Medical History Allergies/Adverse Reactions: Allergies Allergy/AdvReac Type Severity Reaction Status Date / Time No Known Drug Allergies Allergy Verified 02/24/20 11:04 Home Medications: Ambulatory Orders Metoprolol Succinate [Toprol Xl] 100 mg PO DAILY 01/27/20 Ondansetron [Zofran *Odt*] 4 mg GT Q6H #20 tab.rapdis MDD 4 02/14/20 traMADol HCL [Ultram -] 50 mg PO Q6H PRN #20 tablet MDD 4 02/14/20 Aspirin [Aspirin EC] 81 mg PO DAILY 02/24/20 Oxycodone HCl/Acetaminophen [Percocet 10-325 mg Tablet] 1 each PO Q6H PRN 02/24/20 Anemia: No Asthma: No Cancer: No Cardiac Disorders: No CVA: No COPD: No CHF: No Dementia: No Diabetes: No GI Disorders: Yes (GERD) Disorders: Yes (UTI'S) HTN: Yes Hypercholesterolemia: No Liver Disease: No Seizures: No Thyroid Disease: No - Surgical History Abdominal Surgery: No Appendectomy: No Cardiac Surgery: No Cholecystectomy: Yes (YEARS AGO) Lung Surgery: No Neurologic Surgery: No Orthopedic Surgery: Yes - Psycho-Social/Smoking History Smoking History: Never smoked Have you smoked in the past 12 months: No Review of Systems - Review of Systems Able to Perform ROS?: Yes Comments:: 02/24/20 11:54 ROS: R knee pain, see HPI *Physical Exam - Physical Exam 02/24/20 11:55 GENERAL: The patient is awake, alert, and fully oriented, Nontoxic - in no acute distress. HEAD: Normocephalic, atraumatic. EYES: extraocular movements intact, sclera anicteric, conjunctiva clear. ENT: Normal voice, Moist mucous membranes. NECK: Normal range of motion, supple LUNGS: Breath sounds equal, clear to auscultation bilaterally. No wheezes, no rhonchi, no rales. HEART: Regular rate and rhythm, normal S1 and S2 without murmur, rub or gallop. ABDOMEN: Soft, nontender, No guarding, no rebound. No CVA tenderness EXTREMITIES: Normal range of motion, mild tenderness to R knee, slight warmth, no ertyhema, no fluctuance, trace edema, no calf tednerness NEUROLOGICAL: No facial assymetry, Normal speech, PSYCH: Normal mood, normal affect. SKIN: Warm, Dry, normal turgor, Heart Score/ECG Review - ECG Impressions Comment:: 02/24/20 17:05 Twelve-lead EKG was performed and reviewed by me. There is normal sinus rhythm with a normal rate. Rate of 78 The axis is normal. The intervals are normal. There is normal R wave progression There are no ST or T wave abnormalities. Impression: Normal twelve-lead EKG ED Treatment Course - LABORATORY CBC & Chemistry Diagram: 02/24/20 12:34 02/24/20 12:14 Medical Decision Making - Medical Decision Making 02/24/20 12:13 suspect her symptoms may be due to the percocet she did have the brief episode of sob - will botain cardiac enzymes to r/o MD will botain labs to eval her knee pain - mild warmth,which may be post op, there is no signs of erythenma/induration/signficiant swelling duplex to r/o dvt will nakul carmona 02/24/20 13:48 US noted for DVT will nakul Carmona 02/24/20 15:46 awaiting CTA results 02/24/20 17:50 cta neg for PE will admit for worsening pain - may be sciatic in nature - pt ntose pain begins in the hip and radiates down to her calf case dw dr Kennedy. mehran with admission will start pt on heparin will place consult for dr. carmona Discharge - Discharge Information Problems reviewed: Yes Clinical Impression/Diagnosis: Leg pain, right, DVT of axillary vein, acute right Knee pain, right Qualifiers: Chronicity: acute Qualified Code(s): M25.561 - Pain in right knee Condition: Stable - Admission Yes - Follow up/Referral Referrals: Manny Villasenor [Primary Care Provider] - - Patient Discharge Instructions - Post Discharge Activity
[2020-02-24 11:13] VITALS: BMI 25.2
[2020-02-24] MEDS ORDERED: ACETAMINOPHEN 325 MG TABLET (FP) PO ONE (11:52)
[2020-02-24] MEDS ORDERED: ACETAMINOPHEN 325 MG TABLET (FP) ONE (12:39)
[2020-02-24 13:05] LABS: BASO % 0.8 % (0-2.0)
[2020-02-24 13:08] LABS: HEMOGLOBIN 13.3 GM/dl (10.7-15.3); LYMPH % 15.5 % (8-40); MCH 29.5 pg (25.7-33.7); MCHC 33.3 g/dl (32.0-36.0); MEAN CELL VOLUME 88.5 fl (80-96); MEAN PLT VOLUME 9.1 fl (7.5-11.1); MONO % 7.5 % (3.8-10.2); NEUT % 74.2 % (42.8-82.8); PLATELET COUNT 460 K/MM3 (134-434); RBC 4.51 M/mm3 (3.60-5.2); RDW 11.4 % (11.6-15.6); WHITE BLOOD COUNT 8.9 K/mm3 (4.0-10.8)
[2020-02-24 13:16] LABS: ALBUMIN 3.4 g/dl (3.4-5.0); BILIRUBIN,TOTAL 0.8 mg/dl (0.2-1); CALCIUM 10.4 mg/dl (8.5-10); CREATININE 0.7 mg/dl (0.55-1.3); POTASSIUM 3.6 mmol/L (3.5-5.1); TOT PROT 6.1 g/dl (6.4-8.2)
[2020-02-24 14:35] LABS: INR 1.25 (0.82-1.09); PROTHROMBIN TIME (PATIENT) 13.9 SEC (10.2-13.0)
[2020-02-24] MEDS ORDERED: IBUPROFEN 400 MG TABLET (FP) PO ONE ×2 (15:41→15:44)
[2020-02-24] MEDS ORDERED: CYCLOBENZAPRINE HCL 10 MG TABLET (FP) PO ONE (15:54)
[2020-02-24] MEDS ORDERED: CYCLOBENZAPRINE HCL 10 MG TABLET (FP) ONE (16:01)
[2020-02-24] MEDS ORDERED: HEPARIN NA (PORCINE) 5,000 UNITS/ML 1ML VIAL IVPUSH ONE (17:45)
[2020-02-24] MEDS ORDERED: HEPARIN NA (PORCINE) 5,000 UNITS/ML 1ML VIAL ONE (17:48)
[2020-02-24] MEDS ORDERED: HEPARIN NA (PORCINE) 5,000 UNITS/ML 1ML VIAL IVPUSH PRN ×2 (17:49)
[2020-02-24] MEDS ORDERED: HEPARIN INFUSION - 25,000 UNITS/500 ML INFUS.BAG IVPB ONE (17:50)
[2020-02-24] MEDS: HEPARIN - 25,000 UNIT in SODIUM CHLORIDE 495 ML IV SCH (18:15)
--- NOTE | 2020-02-24 19:47 | HP ---
CHIEF COMPLAINT: Right Knee Pain, SOB, Lightheadedness PCP: Manny Villasenor Orthopedist: Miguel Ángel Roblero HISTORY OF PRESENT ILLNESS: This is a 74 y/o female with a significant past medical history of HTN, GERD, Recurrent UTIs, OA of Bilateral Knees s/p R TKR (02/12/20). Who presents to the ED for lightheaded, dizziness and feeling disoriented after taking Percocet 10/325mg, SOB, right hip pain, and worsening right knee pain. She reports over the past several days the pain in her knee worsened and noted being SOB at rest which was unusual to her. Patient reports seeing Dr Roblero last week for follow up, and was given Percocet for her right knee pain. She reports doing PT at home and was able to ambulate with her walker as well as go up 16 stairs in her house without incident last week. Patient denies fall or trauma. Patient denies fever, chills, cough, BRADEN, CP, palpitations, AP, vomiting, diarrhea, melena, hematochezia, hematuria, dysuria ER course was notable for: (1) Duplex of LE- DVT Right Popliteal Vein (2) CTA- Neg PE (3) Recent Travel: None PAST MEDICAL HISTORY: HTN GERD Recurrent UTIs OA Bilateral Knees PAST SURGICAL HISTORY: s/p R- Knee Total Replacement (02/12/20) Cervical Fusion 2018 Cholecystectomy Hysterectomy Social History: Smoking: Never Alcohol: Denies Drugs: Denies , lives alone- retired [employer] Allergies No Known Drug Allergies Allergy (Verified 02/24/20 11:04) HOME MEDICATIONS: Home Medications Medication Instructions Recorded Metoprolol Succinate [Toprol Xl] 100 mg PO DAILY 01/27/20 Ondansetron [Zofran *Odt*] 4 mg GT Q6H #20 tab.rapdis MDD 4 02/14/20 traMADol HCL [Ultram -] 50 mg PO Q6H PRN #20 tablet MDD 4 02/14/20 Aspirin [Aspirin EC] 81 mg PO DAILY 02/24/20 Oxycodone HCl/Acetaminophen 1 each PO Q6H PRN 02/24/20 [Percocet 10-325 mg Tablet] REVIEW OF SYSTEMS CONSTITUTIONAL: Absent: fever, chills, diaphoresis, generalized weakness, malaise, loss of appetite, weight change HEENT: Absent: rhinorrhea, nasal congestion, throat pain, throat swelling, difficulty swallowing, mouth swelling, ear pain, eye pain, visual changes CARDIOVASCULAR: lightheadedness, Absent: chest pain, syncope, palpitations, irregular heart rate, peripheral edema RESPIRATORY: shortness of breath, dyspnea with exertion Absent: cough, orthopnea, wheezing, stridor, hemoptysis GASTROINTESTINAL: nausea Absent: abdominal pain, abdominal distension, vomiting, diarrhea, constipation, melena, hematochezia GENITOURINARY: Absent: dysuria, frequency, urgency, hesitancy, hematuria, flank pain, genital pain MUSCULOSKELETAL: Absent: myalgia, arthralgia, joint swelling, back pain, neck pain SKIN: Absent: rash, itching, pallor HEMATOLOGIC/IMMUNOLOGIC: Absent: easy bleeding, easy bruising, lymphadenopathy, frequent infections ENDOCRINE: Absent: unexplained weight gain, unexplained weight loss, heat intolerance, cold intolerance NEUROLOGIC: dizziness Absent: headache, focal weakness or paresthesias, unsteady gait, seizure, mental status changes, bladder or bowel incontinence PSYCHIATRIC: Absent: anxiety, depression, suicidal or homicidal ideation, hallucinations. PHYSICAL EXAMINATION Vital Signs - 24 hr 02/24/20 02/24/20 02/24/20 11:00 16:21 17:55 Temperature 97.7 F 97.8 F Pulse Rate 85 Pulse Rate [ 77 75 Left Apical] Respiratory 18 16 18 Rate Blood Pressure 148/96 Blood Pressure 158/65 128/74 [Right Arm] O2 Sat by Pulse 97 99 98 Oximetry (%) 02/24/20 02/24/20 02/24/20 18:39 18:49 19:19 Temperature 97.8 F 98.2 F Pulse Rate 75 93 H Pulse Rate [ Left Apical] Respiratory 17 18 Rate Blood Pressure 122/64 140/70 Blood Pressure [Right Arm] O2 Sat by Pulse 96 99 97 Oximetry (%) GENERAL: Awake, alert, and fully oriented, in no acute distress. HEAD: Normal with no signs of trauma. EYES: Pupils equal, round and reactive to light, extraocular movements intact, sclera anicteric, conjunctiva clear. No lid lag. EARS, NOSE, THROAT: Ears normal, nares patent, oropharynx clear without exudates. Moist mucous membranes. NECK: Normal range of motion, supple without lymphadenopathy, JVD, or masses. LUNGS: Breath sounds equal, clear to auscultation bilaterally. No wheezes, and no crackles. No accessory muscle use. HEART: Regular rate and rhythm, normal S1 and S2 without murmur, rub or gallop. ABDOMEN: Soft, nontender, not distended, normoactive bowel sounds, no guarding, no rebound, no masses. No hepatomegaly or splenomegaly. MUSCULOSKELETAL: LROM of RLE, TTP, +erythema, +warmth to medial/lateral aspects of right knee. Normal range of motion of RUE, LUE, LLE joints. No bony deformities. No CVA tenderness. UPPER EXTREMITIES: 2+ pulses, warm, well-perfused. No cyanosis. No clubbing. No peripheral edema. LOWER EXTREMITIES: Trace edema to right knee. 2+ pulses, warm, well-perfused. No calf tenderness. No peripheral edema to LLE. NEUROLOGICAL: Cranial nerves II-XII intact. Normal speech. Gait not observed. PSYCHIATRIC: Cooperative. Good eye contact. Appropriate mood and affect. SKIN: +Mild erythema to right knee, steri strip dressing to right knee c/d/i. Warm, dry, normal turgor, no rashes or lesions noted, normal capillary refill. Laboratory Results - last 24 hr 02/24/20 02/24/20 02/24/20 12:14 12:14 12:34 WBC 8.9 RBC 4.51 Hgb 13.3 Hct 40.0 MCV 88.5 MCH 29.5 MCHC 33.3 RDW 11.4 L Plt Count 460 H MPV 9.1 Absolute Neuts (auto) 6.5 Neutrophils % 74.2 Lymphocytes % 15.5 Monocytes % 7.5 Eosinophils % 2.0 Basophils % 0.8 PT with INR INR PTT (Actin FS) Sodium 136 Potassium 3.6 Chloride 102 Carbon Dioxide 26 Anion Gap 8 BUN 10.0 Creatinine 0.7 Est GFR (CKD-EPI)AfAm 98.23 Est GFR (CKD-EPI)NonAf 84.75 Random Glucose 103 Calcium 10.4 H Total Bilirubin 0.8 AST 34 ALT 58 Alkaline Phosphatase 141 H Creatine Kinase 30 Troponin I < 0.03 Total Protein 6.1 L Albumin 3.4 02/24/20 02/24/20 13:50 17:47 WBC RBC Hgb Hct MCV MCH MCHC RDW Plt Count MPV Absolute Neuts (auto) Neutrophils % Lymphocytes % Monocytes % Eosinophils % Basophils % PT with INR 13.9 H INR 1.25 H PTT (Actin FS) 26.3 Sodium Potassium Chloride Carbon Dioxide Anion Gap BUN Creatinine Est GFR (CKD-EPI)AfAm Est GFR (CKD-EPI)NonAf Random Glucose Calcium Total Bilirubin AST ALT Alkaline Phosphatase Creatine Kinase Troponin I Total Protein Albumin ASSESSMENT/PLAN: This is a 74 y/o female s/p Right Total Knee Replacement (02/12/20, Dr Roblero), OA Bilateral Knees, HTN, GERD, Recurrent UTIs. Admitted for Acute DVT of Right Popliteal Vein for further evaluation of their emergent condition. Plan: See Problem List FEN PO fluids as tolerated Replete lytes prn Low Na Diet DVT ppx OOB Continue Heparin Drip Code Status: Full Code Dispo: Requires Inpatient Care Family Medical History Family History: As Documented Family Hx Cancer: Mother (Leukemia), Father (Osteosarcoma), Sister (Breast) Other Family History: Uncle- Osteosarcoma Problem List - Problem (1) DVT of axillary vein, acute right Assessment/Plan: s/p R-TKR Duplex LE- DVT Right Popliteal Vein Wells Score- 1, moderate risk Heparin Protocol initiated in ED, will continue Series PTT Series CBC Neurovascular checks Monitor vitals Tylenol prn Code(s): I82.A11 - ACUTE EMBOLISM AND THROMBOSIS OF RIGHT AXILLARY VEIN (2) Knee pain, right Assessment/Plan: see above Xray of R- Knee image, report reviewed- No fractures, anatomic positioning of the prosthesis Appreciate Ortho consult Tylenol prn Code(s): M25.561 - PAIN IN RIGHT KNEE Qualifiers: Chronicity: acute Qualified Code(s): M25.561 - Pain in right knee (3) SOB (shortness of breath) Assessment/Plan: Concerning for PE secondary s/p R-TKR Wells Score 4.5, moderate risk PERC Rule, 1 criteria CTA image, report reviewed- no Ct evidence of pulmonary embolism. Minimal right posterior basilar discoid atelectasis/scarring O2 Incentive Spirometry Monitor vitals Code(s): R06.02 - SHORTNESS OF BREATH (4) HTN (hypertension) Assessment/Plan: stable Monitor BP Continue current Metoprolol with parameters Monitor CMP Code(s): I10 - ESSENTIAL (PRIMARY) HYPERTENSION (5) GERD (gastroesophageal reflux disease) Assessment/Plan: Stable no current med PPI prn Code(s): K21.9 - GASTRO-ESOPHAGEAL REFLUX DISEASE WITHOUT ESOPHAGITIS (6) Encounter for screening laboratory testing for COVID-19 virus Assessment/Plan: Low Risk COVID PCR-pending Isolation Precautions Code(s): Z11.59 - ENCOUNTER FOR SCREENING FOR OTHER VIRAL DISEASES Visit type - Medication Review Med list reviewed for High Risk Meds patients 65 and older: Yes - Emergency Visit Emergency Visit: Yes ED Registration Date: 02/24/20 Care time: The patient presented to the Emergency Department on the above date and was hospitalized for further evaluation of their emergent condition. - New Patient This patient is new to me today: Yes Date on this admission: 02/24/20 - Critical Care Critical Care patient: No
[2020-02-24] MEDS: ACETAMINOPHEN 325 MG TABLET (FP) PO PRN (20:52)
[2020-02-24] MEDS ORDERED: LIDOCAINE 5% TOPICAL PATCH TP ONE (21:42)
[2020-02-24 23:51] LABS: INR 1.25 (0.82-1.09); PROTHROMBIN TIME (PATIENT) 13.9 SEC (10.2-13.0)
[2020-02-25] MEDS: HEPARIN - 25,000 UNIT in SODIUM CHLORIDE 495 ML IV SCH ×2 (07:00→14:05)
[2020-02-25 08:29] LABS: BASO % 1.1 % (0-2.0); HEMATOCRIT 37.1 % (32.4-45.2); HEMOGLOBIN 12.1 GM/dl (10.7-15.3); LYMPH % 22.6 % (8-40); MCH 29.2 pg (25.7-33.7); MCHC 32.5 g/dl (32.0-36.0); MEAN CELL VOLUME 89.9 fl (80-96); MEAN PLT VOLUME 9.4 fl (7.5-11.1); MONO % 7.4 % (3.8-10.2); NEUT % 64.9 % (42.8-82.8); PLATELET COUNT 360 K/MM3 (134-434); RBC 4.13 M/mm3 (3.60-5.2); RDW 11.9 % (11.6-15.6); WHITE BLOOD COUNT 7.5 K/mm3 (4.0-10.8)
[2020-02-25 09:21] LABS: CREATININE 0.9 mg/dl (0.55-1.3); POTASSIUM 3.6 mmol/L (3.5-5.1)
[2020-02-25 09:22] LABS: ALBUMIN 3.1 g/dl (3.4-5.0); BILIRUBIN,TOTAL 0.5 mg/dl (0.2-1); CALCIUM 10.1 mg/dl (8.5-10); TOT PROT 5.5 g/dl (6.4-8.2)
[2020-02-25] MEDS ORDERED: LIDOCAINE PATCH REMOVAL MC ONE (10:00)
--- NOTE | 2020-02-25 10:15 | EKG ---
Test Reason : Blood Pressure : / mmHG Vent. Rate : 078 BPM Atrial Rate : 078 BPM P-R Int : 190 ms QRS Dur : 086 ms QT Int : 368 ms P-R-T Axes : 058 006 024 degrees QTc Int : 419 ms NORMAL SINUS RHYTHM NORMAL ECG NO PREVIOUS ECGS AVAILABLE Confirmed by MD Ely, Farhat ([id number]) on 02/25/2020 10:14:58 AM Referred By: ZE ESPITIA Confirmed By:Farhat Graves MD
[2020-02-25] MEDS: ACETAMINOPHEN 325 MG TABLET (FP) PO PRN ×2 (11:05→23:10)
--- NOTE | 2020-02-25 12:44 | PN ---
Physical Exam: SUBJECTIVE: Patient seen and examined at bedside. Has pain to the medial right knee and posterior right knee. It is intermittent. Able to weight bear, flex and extend the right leg with little pain. OBJECTIVE: Vital Signs Period Temp Pulse Resp BP Sys/Han Pulse Ox Last 24 Hr 97.8 F-98.3 F 75-93 16-18 122-158/64-76 95-99 GENERAL: The patient is awake, alert, and fully oriented, in no acute distress. LUNGS: Breath sounds equal, clear to auscultation bilaterally, no wheezes, no crackles, no accessory muscle use. HEART: Regular rate and rhythm, S1, S2 without murmur, rub or gallop. ABDOMEN: Soft, nontender, nondistende. RLE: Steri strips c/d/i anterior knee; tenderness over medial aspect; mild swelling and erythema of entire knee joint Laboratory Results - last 24 hr 02/24/20 02/24/20 02/24/20 12:14 12:14 12:34 WBC 8.9 RBC 4.51 Hgb 13.3 Hct 40.0 MCV 88.5 MCH 29.5 MCHC 33.3 RDW 11.4 L Plt Count 460 H MPV 9.1 Absolute Neuts (auto) 6.5 Neutrophils % 74.2 Lymphocytes % 15.5 Monocytes % 7.5 Eosinophils % 2.0 Basophils % 0.8 PT with INR INR PTT (Actin FS) Sodium 136 Potassium 3.6 Chloride 102 Carbon Dioxide 26 Anion Gap 8 BUN 10.0 Creatinine 0.7 Est GFR (CKD-EPI)AfAm 98.23 Est GFR (CKD-EPI)NonAf 84.75 Random Glucose 103 Calcium 10.4 H Total Bilirubin 0.8 AST 34 ALT 58 Alkaline Phosphatase 141 H Creatine Kinase 30 Troponin I < 0.03 Total Protein 6.1 L Albumin 3.4 02/24/20 02/24/20 02/24/20 13:50 17:47 23:22 WBC RBC Hgb Hct MCV MCH MCHC RDW Plt Count MPV Absolute Neuts (auto) Neutrophils % Lymphocytes % Monocytes % Eosinophils % Basophils % PT with INR 13.9 H 13.9 H INR 1.25 H 1.25 H PTT (Actin FS) 26.3 35.0 Sodium Potassium Chloride Carbon Dioxide Anion Gap BUN Creatinine Est GFR (CKD-EPI)AfAm Est GFR (CKD-EPI)NonAf Random Glucose Calcium Total Bilirubin AST ALT Alkaline Phosphatase Creatine Kinase Troponin I Total Protein Albumin 02/25/20 02/25/20 02/25/20 06:00 06:00 06:00 WBC 7.5 RBC 4.13 Hgb 12.1 Hct 37.1 MCV 89.9 MCH 29.2 MCHC 32.5 RDW 11.9 Plt Count 360 MPV 9.4 Absolute Neuts (auto) 4.8 Neutrophils % 64.9 Lymphocytes % 22.6 Monocytes % 7.4 Eosinophils % 4.0 Basophils % 1.1 PT with INR INR PTT (Actin FS) 89.2 H Sodium 138 Potassium 3.6 Chloride 106 Carbon Dioxide 23 Anion Gap 9 BUN 13.0 Creatinine 0.9 Est GFR (CKD-EPI)AfAm 72.49 Est GFR (CKD-EPI)NonAf 62.55 Random Glucose 99 Calcium 10.1 H Total Bilirubin 0.5 AST 23 ALT 43 Alkaline Phosphatase 138 H Creatine Kinase Troponin I Total Protein 5.5 L Albumin 3.1 L Current Medications Generic Name Dose Route Start Last Admin Trade Name Freq PRN Reason Stop Dose Admin Acetaminophen 650 mg 02/24/20 20:43 02/25/20 11:05 Tylenol - PO 650 mg Q4H PRN Administration PAIN LEVEL 4 - 6 Aspirin 81 mg 02/26/20 10:00 Ecotrin - PO DAILY DELROY Enoxaparin Sodium 70 mg 02/25/20 15:15 02/25/20 15:46 Lovenox - SQ 70 mg Q12H DELROY Administration Metoprolol Succinate 100 mg 02/25/20 14:15 02/25/20 14:36 Toprol Xl - PO 100 mg DAILY DELROY Administration Pantoprazole Sodium 40 mg 02/25/20 14:15 02/25/20 14:36 Protonix - PO 40 mg DAILY DELROY Administration ASSESSMENT/PLAN: 74 year-old female with a PMH significant for HTN, GERD, recurrent UTIs, and OA bilateral knees s/p right total knee replacement on 02/12/20. Admitted for DVT of right popliteal vein. RLE DVT --started on heparin drip in ED, transitioned to lovenox 1mg/kg q12h --surgery consulted Hypertension --continued ToprolXL GERD --protonix Recurrent UTIs --stable, no acute issues FEN Fluids: PO intake adequate Electrolytes: replete as indicated Nutrition: low sodium DVT prophylaxis: on therapeutic lovenox Physical therapy Dispo: continues to require inpatient care. Full code. Visit type - Emergency Visit Emergency Visit: Yes ED Registration Date: 02/24/20 Care time: The patient presented to the Emergency Department on the above date and was hospitalized for further evaluation of their emergent condition. - New Patient This patient is new to me today: Yes Date on this admission: 02/25/20 - Critical Care Critical Care patient: No - Medication Review Med list reviewed for High Risk Meds patients 65 and older: Yes
[2020-02-25] MEDS: PANTOPRAZOLE 40 MG TABLET PO SCH (14:36)
[2020-02-25] MEDS: ENOXAPARIN NA (PORCINE) 80 MG/0.8 ML DISP.SYRIN SQ SCH (15:46)
[2020-02-26] MEDS: ENOXAPARIN NA (PORCINE) 80 MG/0.8 ML DISP.SYRIN SQ SCH ×2 (04:13→16:00)
[2020-02-26] MEDS: ACETAMINOPHEN 325 MG TABLET (FP) PO PRN (04:18)
[2020-02-26 06:23] VITALS: BP 144/80; PULSE 83; TEMP 98.3
[2020-02-26 08:51] LABS: BASO % 0.5 % (0-2.0); EOS % 3.7 % (0-4.5); HEMATOCRIT 38.8 % (32.4-45.2); HEMOGLOBIN 12.5 GM/dl (10.7-15.3); LYMPH % 17.2 % (8-40); MCH 28.5 pg (25.7-33.7); MCHC 32.1 g/dl (32.0-36.0); MEAN CELL VOLUME 88.7 fl (80-96); MEAN PLT VOLUME 9.2 fl (7.5-11.1); MONO % 6.7 % (3.8-10.2); NEUT % 71.9 % (42.8-82.8); PLATELET COUNT 409 K/MM3 (134-434); RBC 4.38 M/mm3 (3.60-5.2); RDW 11.9 % (11.6-15.6); WHITE BLOOD COUNT 9.4 K/mm3 (4.0-10.8)
[2020-02-26] MEDS: PANTOPRAZOLE 40 MG TABLET PO SCH (09:25)
[2020-02-26] MEDS ORDERED: ASPIRIN COATED 81 MG TABLET.EC PO SCH (10:00)
--- NOTE | 2020-02-26 12:02 | DS ---
Physical Exam: SUBJECTIVE: Patient seen and examined OBJECTIVE: Vital Signs Period Temp Pulse Resp BP Sys/Han Pulse Ox Last 24 Hr 97.6 F-98.7 F 83-91 16-18 144-154/77-89 97-100 PHYSICAL EXAM GENERAL: The patient is awake, alert, and fully oriented, in no acute distress. LUNGS: Breath sounds equal, clear to auscultation bilaterally, no wheezes, no crackles, no accessory muscle use. HEART: Regular rate and rhythm, S1, S2 without murmur, rub or gallop. ABDOMEN: Soft, nontender, nondistende. RLE: Steri strips c/d/i anterior knee; tenderness over medial aspect; mild swelling and erythema of entire knee joint LABS Laboratory Results - last 24 hr 02/24/20 02/25/20 02/26/20 16:31 13:18 07:29 WBC 9.4 RBC 4.38 Hgb 12.5 Hct 38.8 MCV 88.7 MCH 28.5 MCHC 32.1 RDW 11.9 Plt Count 409 MPV 9.2 Absolute Neuts (auto) 6.9 Neutrophils % 71.9 Lymphocytes % 17.2 Monocytes % 6.7 Eosinophils % 3.7 Basophils % 0.5 PTT (Actin FS) 77.2 H COVID-19 (AYSHA) Not detected 02/26/20 07:29 WBC RBC Hgb Hct MCV MCH MCHC RDW Plt Count MPV Absolute Neuts (auto) Neutrophils % Lymphocytes % Monocytes % Eosinophils % Basophils % PTT (Actin FS) 35.8 COVID-19 (AYSHA) HOSPITAL COURSE: Date of Admission:02/24/20 Date of Discharge: 02/26/20 74 year-old female with a PMH significant for HTN, GERD, recurrent UTIs, and OA bilateral knees s/p right total knee replacement on 02/12/20. Admitted for DVT of right popliteal vein. RLE DVT --started on heparin drip in ED, transitioned to lovenox 1mg/kg q12h --seen and evaluated by surgery and vascular, discharge on Eliquis --outpatient followup in [address] Daley Hypertension --continued ToprolXL GERD --protonix Recurrent UTIs --stable, no acute issues Minutes to complete discharge: 35 Discharge Summary Problems reviewed: Yes Reason For Visit: RIGHT KNEE PAIN Current Active Problems DVT of axillary vein, acute right (Acute) Encounter for screening laboratory testing for COVID-19 virus (Acute) GERD (gastroesophageal reflux disease) (Acute) HTN (hypertension) (Acute) Knee pain, right (Acute) Leg pain, right (Acute) SOB (shortness of breath) (Acute) Condition: Stable - Instructions Diet, Activity, Other Instructions: Stop taking aspirin. A prescription has been sent to your pharmacy which is a blood thinner. Take this medication as directed. Follow up with Dr. Roblero in 2 weeks for a follow up ultrasound. Referrals: Narinder Roblero MD [Staff Physician] - Disposition: HOME - Home Medications Comprehensive Discharge Medication List: Ambulatory Orders Metoprolol Succinate [Toprol Xl] 100 mg PO DAILY 01/27/20 Ondansetron [Zofran *Odt*] 4 mg GT Q6H #20 tab.rapdis MDD 4 02/14/20 traMADol HCL [Ultram -] 50 mg PO Q6H PRN #20 tablet MDD 4 02/14/20 Aspirin [Aspirin EC] 81 mg PO DAILY 02/24/20 Oxycodone HCl/Acetaminophen [Percocet 10-325 mg Tablet] 1 each PO Q6H PRN 02/24/20 This patient is new to me today: No Emergency Visit: Yes ED Registration Date: 02/24/20 Care time: The patient presented to the Emergency Department on the above date and was hospitalized for further evaluation of their emergent condition. Critical Care patient: No - Discharge Referral Referred to [facility] Med P.C.: No
--- NOTE | 2020-02-26 15:34 | PN ---
Progress Note (short form) - Note Progress Note: 74F s/p RIGHT total knee replacement 02/12/2020 now admitted w/new onset RIGHT knee pain, disorientation, and shortness of breath. Pain well controlled. No acute events overnight. Pt. denies overnight history of headaches, chest pain, shortness of breath, nausea, vomiting, chills, & sweats. (+) Voiding; (+) Flatus; (+) BM. Tolerating diet. Ambulating comfortably in room. All labs and vitals reviewed. CTA Chest: negative for PE. RLE US: (+) Tibial Vein DVT. (+) Popliteal mass/collection. ?Pseudoaneurysm. PE: AAO x 3, NAD. R-Knee: Dressing, incision C/D/I. Full, painless active ROM knee. NVI distally. 74F s/p RIGHT total knee replacement 02/12/2020 now admitted w/new onset RIGHT knee pain, disorientation, and shortness of breath. -f/u RLE Vascular Surgery consult: Dr. Mason. -Pain control. -DVT PPx: -Chemical: Therapeutic lovenox f/u rec's as per Dr. Mason. -Mechanical: ANDREW's, SCD's. -Incentive spirometry q15 min. -PT/OT/Rehab, OOB. -WBAT RLE. -f/u daily labs. -Diet as tolerated. -Care per medical hospitalist team. -Discharge planning: f/u [facility] [place] [facility] 7-10 days after nicol bermeo; call for appointment . -Will follow. Naridner Roblero MD (Orthopaedic Surgery).
--- NOTE | 2020-02-26 19:59 | CONSULT ---
Consult - text type - Consultation Consultation Note: 74 year old woman 2 weeks s/p right TKR who developed pain and swelling in the knee and calf. A Duplex scan showed one tibial vein with clot. She denies a prior history of DVT. There was also a small complex mass behind the knee without evidence for vascular flow. On exam there is mild swelling in the calf, no cords. No popliteal mass palpable. Imp: Tibial DVT in patient with recent knee surgery. She is walking but should be treated for DVT for short term with Eliquis. Duplex will be repeated in 2 weeks and if no progression of DVT she can be changed to aspirin. Patient will call for appointment.
[2020-02-26] MEDS ORDERED: APIXABAN 5 MG TABLET PO ONE (20:19)
== END 2020-02-26 20:40 | disposition home or self-care (01) | DRG 300 ==
LOC: FER 11:00 → FM/S 17:48
PROVIDERS: ATTEND Nurse Practitioner Acute Care
DX: T81.72XA Complication of vein following a procedure, not elsewhere classified, initial encounter (principal); I82.431 Acute embolism and thrombosis of right popliteal vein; G89.18 Other acute postprocedural pain; K21.9 Gastro-esophageal reflux disease without esophagitis; I10 Essential (primary) hypertension; M25.561 Pain in right knee; R06.02 Shortness of breath; R22.41 Localized swelling, mass and lump, right lower limb; Y83.9 Surgical procedure, unspecified as the cause of abnormal reaction of the patient, or of later complication, without mention of misadventure at the time of the procedure
CPT/HCPCS: 36415; 71275-TC; 73562-TC-RT-FY; 80053; 82550; 84484; 85025; 85610; 85730; 93005; 93971-TC; 97116-GP; 97161-GP; 99285-25; J1644; Q9967; U0003

== ENCOUNTER 2021-10-27 10:45 | Day surgery (SDC) | payer OTHER ==
[2021-10-26 13:10] VITALS: BMI 24.3
[2021-10-27] MEDS ORDERED: ACETAMINOPHEN 1000 MG/100 ML BAG IVPB PRN (16:05)
[2021-10-27] MEDS ORDERED: MIDAZOLAM HCL 2 MG/2 ML SINGLE DOSE VIAL ONE (16:20)
[2021-10-27] MEDS ORDERED: PROPOFOL 20 ML ONE (16:21)
[2021-10-27] MEDS ORDERED: ceFAZolin SODIUM 1 GM VIAL ONE (16:35)
[2021-10-27] MEDS ORDERED: DEXAMETHASONE SOD PHOSPHATE 4 MG/1 ML VIAL ONE (16:48)
[2021-10-27] MEDS ORDERED: ONDANSETRON 4 MG/2 ML VIAL ONE ×2 (16:48→18:01)
[2021-10-27] MEDS ORDERED: ePHEDrine SULFATE 50 MG/1 ML AMPULE ONE (16:49)
[2021-10-27] MEDS ORDERED: oxyCODONE HCL 5 MG TABLET PO PRN ×2 (17:27→18:15)
[2021-10-27] MEDS ORDERED: ONDANSETRON 4 MG/2 ML VIAL IVPUSH PRN (17:27)
[2021-10-27] MEDS ORDERED: FENTANYL CITRATE/PF 50 MCG/ML VIAL ONE ×4 (17:29→18:01)
[2021-10-27] MEDS: ACETAMINOPHEN 1000 MG/100 ML BAG IVPB ONE (17:30)
[2021-10-27] MEDS ORDERED: LACTATED RINGERS SOLUTION 1,000 ML IV SCH (17:30)
[2021-10-27] MEDS ORDERED: ACETAMINOPHEN INJECTION 100 ML IVPB ONE (17:33)
[2021-10-27] MEDS ORDERED: oxyCODONE HCL 5 MG TABLET ONE (18:09)
[2021-10-27] MEDS ORDERED: KETOROLAC TROMETHAMINE 30 MG/1 ML VIAL IVPUSH ONE (18:15)
[2021-10-27] MEDS ORDERED: KETOROLAC TROMETHAMINE 30 MG/1 ML VIAL ONE (18:17)
[2021-10-27] MEDS ORDERED: oxyCODONE HCL 10 MG SUSTAINED ACTING TABLET PO SCH (22:00)
[2021-10-28] MEDS: ACETAMINOPHEN 1000 MG/100 ML BAG IVPB ONE (04:04)
[2021-10-28 09:29] VITALS: BP 109/58; PULSE 77; TEMP 97.8
== END 2021-10-28 12:45 | disposition home or self-care (01) ==
LOC: FASU 10:45 → FASUSAT 10:45 → FM/S 18:55 → FASUSAT 10-28 12:45
PROVIDERS: ATTEND Orthopaedic Surgery Orthopaedic Surgery of the Spine
PROC: 0J8L0ZZ Division of Right Upper Leg Subcutaneous Tissue and Fascia, Open Approach (ICD-10-PCS; principal; 2021-10-27 16:53)
DX: M76.31 Iliotibial band syndrome, right leg (principal)
CPT/HCPCS: 94760; 97116-GP; 97161-GP

== ENCOUNTER 2023-01-31 11:00 | Inpatient (IN) | payer OTHER ==
[2023-02-20 12:58] VITALS: BMI 25.8
[2023-02-21] MEDS ORDERED: THROMBIN (BOVINE) 20,000 UNIT VIAL TP ONE
[2023-02-21] MEDS ORDERED: THROMBIN (BOVINE) 5,000 UNIT VIAL TP ONE ×4 (07:10→10:49)
[2023-02-21] MEDS ORDERED: GENTAMICIN SO4 80 MG/2 ML VIAL ONE (07:10)
[2023-02-21] MEDS ORDERED: BUPIVACAINE LIPOSOME/PF (EXPAREL) 266 MG/20 ML VIAL ONE (07:10)
[2023-02-21] MEDS ORDERED: BUPIVACAINE HCL/PF 0.5% (5MG/ML) 10 ML VIAL ONE (07:10)
[2023-02-21] MEDS ORDERED: PROPOFOL 20 ML ONE (07:17)
[2023-02-21] MEDS ORDERED: SUCCINYLCHOLINE CHLORIDE 200 MG/10 ML SYRINGE ONE (07:17)
[2023-02-21] MEDS ORDERED: MIDAZOLAM HCL 2 MG/2 ML SINGLE DOSE VIAL ONE (07:17)
[2023-02-21] MEDS ORDERED: LIDOCAINE HCL/PF 2% SDV 5ML VIAL ONE (07:17)
[2023-02-21] MEDS ORDERED: ceFAZolin SODIUM 1 GM VIAL ONE ×2 (08:55→12:36)
[2023-02-21] MEDS ORDERED: VANCOMYCIN 1,000 MG VIAL (RESTRICTED TO ID ONLY) ONE (08:55)
[2023-02-21] MEDS ORDERED: TRANEXAMIC ACID 1000 MG/10 ML VIAL ONE ×2 (08:55→12:37)
[2023-02-21] MEDS ORDERED: DEXAMETHASONE SOD PHOSPHATE 4 MG/1 ML VIAL ONE (08:55)
[2023-02-21] MEDS ORDERED: VANCOMYCIN 1 GM in D5W (PRE-DOCKED) 1,000 MG/250 ML (RESTRICTED TO ID ONLY IVPB ONE ×2 (09:00)
[2023-02-21] MEDS ORDERED: ceFAZolin SODIUM 1 GM VIAL IVPB ONE ×4 (09:00→12:30)
[2023-02-21] MEDS ORDERED: ROCURONIUM BROMIDE 50 MG/5 ML SYRINGE ONE (09:03)
[2023-02-21] MEDS ORDERED: BACITRACIN ZINC 15 GM TUBE TOPICAL OINTMENT ONE (10:08)
[2023-02-21] MEDS ORDERED: HYDROGEN PEROXIDE 473 ML PO ONE ×3 (10:15)
[2023-02-21] MEDS ORDERED: GENTAMICIN SO4 80 MG/2 ML VIAL IVPB ONE ×3 (10:15)
[2023-02-21] MEDS ORDERED: BUPIVACAINE HCL/PF 0.5% (5MG/ML) 10 ML VIAL IJ ONE ×2 (12:24)
[2023-02-21] MEDS ORDERED: BUPIVACAINE LIPOSOME/PF (EXPAREL) 266 MG/20 ML VIAL NR ONE ×2 (12:24)
[2023-02-21] MEDS ORDERED: ONDANSETRON 4 MG/2 ML VIAL ONE (12:30)
[2023-02-21] MEDS ORDERED: ONDANSETRON 4 MG/2 ML VIAL IVPUSH PRN (13:17)
[2023-02-21] MEDS ORDERED: diphenhydrAMINE HCL 25 MG CAPSULE (FP) PO PRN (13:17)
[2023-02-21] MEDS ORDERED: PROMETHAZINE HCL 25 MG/1 ML VIAL IVPB PRN (13:23)
[2023-02-21] MEDS ORDERED: ACETAMINOPHEN 1000 MG/100 ML BAG IVPB ONE ×3 (13:24→13:46)
[2023-02-21] MEDS ORDERED: LACTATED RINGERS SOLUTION 1,000 ML IV SCH (13:30)
[2023-02-21] MEDS ORDERED: HEPARIN NA (PORCINE) 5,000 UNITS/ML 1ML VIAL SQ SCH (13:30)
[2023-02-21] MEDS ORDERED: SODIUM CHLORIDE 1,000 ML IV SCH (13:30)
[2023-02-21] MEDS ORDERED: ACETAMINOPHEN INJECTION 100 ML IVPB ONE (13:44)
[2023-02-21] MEDS ORDERED: BENZOCAINE/MENTH/CETYLPYRD CL 1 EACH LOZENGE MM PRN (13:49)
[2023-02-21] MEDS: DOCUSATE SODIUM 100 MG CAPSULE (FP) PO SCH ×2 (15:43→21:15)
[2023-02-21] MEDS ORDERED: HYDROmorphone *PCA* 10MG/50ML DISP.SYRIN ONE (16:01)
[2023-02-21] MEDS ORDERED: HYDROmorphone *PCA* 10MG/50ML DISP.SYRIN PCA ONE (16:03)
[2023-02-21] MEDS: HYDROmorphone *PCA* 10MG/50ML DISP.SYRIN PCA SCH (16:03)
[2023-02-21] MEDS: ACETAMINOPHEN 1000 MG/100 ML BAG IVPB SCH (21:14)
[2023-02-21] MEDS: CEFAZOLIN 1 GM in DEXTROSE 5%-WATER - 50 ML IVPB SCH (21:15)
[2023-02-21] MEDS: LOSARTAN POTASSIUM 50 MG TABLET PO SCH (21:16)
[2023-02-21] MEDS: HEPARIN NA (PORCINE) 5,000 UNITS/ML 1ML VIAL SQ SCH (21:16)
[2023-02-22] MEDS: ACETAMINOPHEN 1000 MG/100 ML BAG IVPB SCH ×4 (02:17→20:08)
[2023-02-22] MEDS: CEFAZOLIN 1 GM in DEXTROSE 5%-WATER - 50 ML IVPB SCH ×3 (04:29→20:55)
[2023-02-22] MEDS: HEPARIN NA (PORCINE) 5,000 UNITS/ML 1ML VIAL SQ SCH ×3 (05:34→22:13)
[2023-02-22] MEDS: DOCUSATE SODIUM 100 MG CAPSULE (FP) PO SCH ×3 (05:34→22:14)
[2023-02-22 08:56] LABS: HEMATOCRIT 33.9 % (32.4-45.2); HEMOGLOBIN 11.8 GM/dL (10.7-15.3); MCH 30.1 pg (25.7-33.7); MCHC 34.9 g/dl (32.0-36.0); MEAN CELL VOLUME 86.2 fl (80-96); MEAN PLT VOLUME 7.8 fl (7.5-11.1); PLATELET COUNT 334 10^3/uL (134-434); RBC 3.93 M/mm3 (3.60-5.2); RDW 13.4 % (11.6-15.6); WHITE BLOOD COUNT 20.2 K/mm3 (4.0-10.0)
[2023-02-22 09:31] LABS: POTASSIUM 4.2 mmol/L (3.5-5.1)
[2023-02-22] MEDS: POLYETHYLENE GLYCOL (HEALTHYLAX) 3350 17 GM PACKET PO SCH (09:58)
[2023-02-22 10:10] LABS: BLOOD UREA NITROGEN 16.6 mg/dL (7-18)
[2023-02-22 10:11] LABS: CALCIUM 8.3 mg/dL (8.5-10.1)
[2023-02-22 10:15] LABS: CREATININE 0.7 mg/dL (0.55-1.3)
[2023-02-22] MEDS: HYDROmorphone *PCA* 10MG/50ML DISP.SYRIN PCA SCH (13:13)
[2023-02-22] MEDS: amLODIPine BESYLATE 10 MG TABLET (FP) PO SCH (15:09)
[2023-02-22] MEDS: SODIUM CHLORIDE 1,000 ML IV SCH (20:54)
[2023-02-22] MEDS: LOSARTAN POTASSIUM 50 MG TABLET PO SCH (22:13)
[2023-02-23] MEDS: ACETAMINOPHEN 1000 MG/100 ML BAG IVPB SCH (02:47)
[2023-02-23] MEDS: CEFAZOLIN 1 GM in DEXTROSE 5%-WATER - 50 ML IVPB SCH ×3 (03:37→20:25)
[2023-02-23] MEDS: HEPARIN NA (PORCINE) 5,000 UNITS/ML 1ML VIAL SQ SCH ×3 (05:58→21:35)
[2023-02-23] MEDS: DOCUSATE SODIUM 100 MG CAPSULE (FP) PO SCH ×3 (05:58→21:35)
[2023-02-23] MEDS: POLYETHYLENE GLYCOL (HEALTHYLAX) 3350 17 GM PACKET PO SCH (08:59)
[2023-02-23 09:10] LABS: HEMATOCRIT 37.3 % (32.4-45.2); HEMOGLOBIN 12.6 GM/dL (10.7-15.3); MCH 29.4 pg (25.7-33.7); MCHC 33.8 g/dl (32.0-36.0); MEAN CELL VOLUME 87.2 fl (80-96); MEAN PLT VOLUME 8.1 fl (7.5-11.1); PLATELET COUNT 398 10^3/uL (134-434); RBC 4.28 M/mm3 (3.60-5.2); RDW 13.5 % (11.6-15.6); WHITE BLOOD COUNT 24.5 K/mm3 (4.0-10.0)
[2023-02-23 09:43] LABS: POTASSIUM 3.6 mmol/L (3.5-5.1)
[2023-02-23 09:58] LABS: ALBUMIN 3.1 g/dl (3.4-5.0)
[2023-02-23 09:59] LABS: ANISOCYTOSIS 0; BLOOD UREA NITROGEN 12.5 mg/dL (7-18); CALCIUM 8.5 mg/dL (8.5-10.1); HELMET CELLS 0; HOWELL-JOLLY BODIES 0; MACROCYTOSIS 0; OVALOCYTE 0; ROULEAU 0; SICKELED CELLS 0; TARGET CELLS 0; TEAR DROP CELLS 0; TOXIC GRANULATION 0
[2023-02-23 10:00] LABS: CREATININE 0.7 mg/dL (0.55-1.3)
[2023-02-23 10:01] LABS: BILIRUBIN,TOTAL 0.4 mg/dL (0.2-1)
[2023-02-23] MEDS: PANTOPRAZOLE 40 MG TABLET PO SCH (11:47)
[2023-02-23] MEDS ORDERED: oxyCODONE HCL 5 MG TABLET PO PRN ×2 (13:06→13:07)
[2023-02-23] MEDS ORDERED: morphine SULFATE 4 MG/ML VIAL IVPUSH PRN (13:08)
[2023-02-23] MEDS: ACETAMINOPHEN 500 MG TABLET (FP) PO SCH ×2 (13:53→20:25)
[2023-02-23] MEDS: amLODIPine BESYLATE 10 MG TABLET (FP) PO SCH (15:55)
[2023-02-23] MEDS: SODIUM CHLORIDE 1,000 ML IV SCH (17:41)
[2023-02-23] MEDS: LOSARTAN POTASSIUM 50 MG TABLET PO SCH (21:35)
[2023-02-23 22:04] LABS: EPI CELLS 29 /uL (0-25.1); HYALINE CASTS 1 /uL (0-3.1); PH,URINE 6.5 (5.0-8.0); URINE APPEARANCE CLEAR; URINE BACTERIA 2 /uL (0-1359); URINE BILIRUBIN NEGATIVE (NEGATIVE); URINE COLOR YELLOW; URINE GLUCOSE (UA) NEGATIVE (NEGATIVE); URINE KETONE NEGATIVE (NEGATIVE); URINE LEUK ESTERASE 1+ (NEGATIVE); URINE NITRITE NEGATIVE (NEGATIVE); URINE PROTEIN TRACE (NEGATIVE); URINE RBC 143 /uL (0-23.9); URINE WBC 96 /uL (0-25.8)
[2023-02-24] MEDS: ACETAMINOPHEN 500 MG TABLET (FP) PO SCH ×4 (00:56→23:12)
[2023-02-24] MEDS: CEFAZOLIN 1 GM in DEXTROSE 5%-WATER - 50 ML IVPB SCH ×3 (04:05→21:51)
[2023-02-24] MEDS: DOCUSATE SODIUM 100 MG CAPSULE (FP) PO SCH ×3 (06:10→21:51)
[2023-02-24] MEDS: HEPARIN NA (PORCINE) 5,000 UNITS/ML 1ML VIAL SQ SCH ×3 (06:10→21:51)
[2023-02-24] MEDS: CYCLOBENZAPRINE HCL 5 MG TABLET PO PRN (08:56)
[2023-02-24] MEDS: POLYETHYLENE GLYCOL (HEALTHYLAX) 3350 17 GM PACKET PO SCH (09:29)
[2023-02-24] MEDS: PANTOPRAZOLE 40 MG TABLET PO SCH (09:29)
[2023-02-24 09:52] LABS: BASO % 0.4 % (0-2.0); EOS % 0.4 % (0-4.5); HEMATOCRIT 34.3 % (32.4-45.2); HEMOGLOBIN 11.9 GM/dL (10.7-15.3); LYMPH % 10.1 % (8-40); MCHC 34.6 g/dl (32.0-36.0); MEAN CELL VOLUME 86.7 fl (80-96); MEAN PLT VOLUME 8.2 fl (7.5-11.1); MONO % 8.1 % (3.8-10.2); PLATELET COUNT 324 10^3/uL (134-434); RBC 3.95 M/mm3 (3.60-5.2); RDW 13.6 % (11.6-15.6); WHITE BLOOD COUNT 14.8 K/mm3 (4.0-10.0)
[2023-02-24 10:11] LABS: POTASSIUM 3.1 mmol/L (3.5-5.1)
[2023-02-24 10:32] LABS: ALBUMIN 2.8 g/dl (3.4-5.0); BLOOD UREA NITROGEN 13.5 mg/dL (7-18); CALCIUM 8.4 mg/dL (8.5-10.1)
[2023-02-24 10:35] LABS: CREATININE 0.6 mg/dL (0.55-1.3)
[2023-02-24 10:37] LABS: BILIRUBIN,TOTAL 0.6 mg/dL (0.2-1); TOT PROT 5.4 g/dl (6.4-8.2)
[2023-02-24] MEDS ORDERED: POTASSIUM CHLORIDE ORAL LIQUID 20 MEQ/15 ML PO ONE (12:30)
[2023-02-24] MEDS: amLODIPine BESYLATE 10 MG TABLET (FP) PO SCH (17:00)
[2023-02-24] MEDS: morphine SULFATE IMMEDIATE RELEASE 30 MG TAB PO PRN ×2 (17:11→23:16)
[2023-02-24] MEDS: LOSARTAN POTASSIUM 50 MG TABLET PO SCH (21:51)
[2023-02-25] MEDS: CEFAZOLIN 1 GM in DEXTROSE 5%-WATER - 50 ML IVPB SCH ×3 (04:37→21:29)
[2023-02-25] MEDS: DOCUSATE SODIUM 100 MG CAPSULE (FP) PO SCH ×3 (05:53→21:05)
[2023-02-25] MEDS: HEPARIN NA (PORCINE) 5,000 UNITS/ML 1ML VIAL SQ SCH ×3 (05:53→21:06)
[2023-02-25] MEDS: morphine SULFATE IMMEDIATE RELEASE 30 MG TAB PO PRN ×2 (05:54→20:37)
[2023-02-25 09:24] LABS: BASO % 0.7 % (0-2.0); EOS % 1.6 % (0-4.5); HEMATOCRIT 34.7 % (32.4-45.2); HEMOGLOBIN 11.7 GM/dL (10.7-15.3); LYMPH % 15.5 % (8-40); MCH 29.4 pg (25.7-33.7); MCHC 33.7 g/dl (32.0-36.0); MEAN CELL VOLUME 87.1 fl (80-96); MEAN PLT VOLUME 8.5 fl (7.5-11.1); NEUT % 75.2 % (42.8-82.8); PLATELET COUNT 324 10^3/uL (134-434); RBC 3.98 M/mm3 (3.60-5.2); RDW 13.7 % (11.6-15.6); WHITE BLOOD COUNT 9.8 K/mm3 (4.0-10.0)
[2023-02-25] MEDS: POLYETHYLENE GLYCOL (HEALTHYLAX) 3350 17 GM PACKET PO SCH (09:24)
[2023-02-25] MEDS: PANTOPRAZOLE 40 MG TABLET PO SCH (09:24)
[2023-02-25 09:47] LABS: POTASSIUM 3.4 mmol/L (3.5-5.1)
[2023-02-25 09:53] LABS: ALBUMIN 2.6 g/dl (3.4-5.0); BLOOD UREA NITROGEN 15.2 mg/dL (7-18); CALCIUM 8.3 mg/dL (8.5-10.1)
[2023-02-25 09:56] LABS: CREATININE 0.6 mg/dL (0.55-1.3)
[2023-02-25 09:57] LABS: BILIRUBIN,TOTAL 0.8 mg/dL (0.2-1)
[2023-02-25 09:58] LABS: TOT PROT 5.1 g/dl (6.4-8.2)
[2023-02-25] MEDS ORDERED: POTASSIUM CHLORIDE ORAL LIQUID 20 MEQ/15 ML PO ONE (10:00)
[2023-02-25] MEDS: amLODIPine BESYLATE 10 MG TABLET (FP) PO SCH (14:50)
[2023-02-25] MEDS: LOSARTAN POTASSIUM 50 MG TABLET PO SCH (21:06)
[2023-02-26] MEDS ORDERED: MELATONIN 5 MG TABLETS PO ONE (00:56)
[2023-02-26] MEDS: CYCLOBENZAPRINE HCL 5 MG TABLET PO PRN (01:02)
[2023-02-26] MEDS ORDERED: ACETAMINOPHEN 1000 MG/100 ML BAG IVPB ONE (01:45)
[2023-02-26] MEDS: CEFAZOLIN 1 GM in DEXTROSE 5%-WATER - 50 ML IVPB SCH (03:52)
[2023-02-26] MEDS: HEPARIN NA (PORCINE) 5,000 UNITS/ML 1ML VIAL SQ SCH ×3 (05:22→21:26)
[2023-02-26] MEDS: DOCUSATE SODIUM 100 MG CAPSULE (FP) PO SCH ×3 (05:23→21:26)
[2023-02-26 09:29] LABS: BASO % 0.8 % (0-2.0); EOS % 3.5 % (0-4.5); HEMATOCRIT 33.1 % (32.4-45.2); HEMOGLOBIN 11.2 GM/dL (10.7-15.3); LYMPH % 24.3 % (8-40); MCH 29.7 pg (25.7-33.7); MCHC 33.9 g/dl (32.0-36.0); MEAN CELL VOLUME 87.5 fl (80-96); MEAN PLT VOLUME 8.4 fl (7.5-11.1); MONO % 10.9 % (3.8-10.2); NEUT % 60.5 % (42.8-82.8); PLATELET COUNT 347 10^3/uL (134-434); RBC 3.78 M/mm3 (3.60-5.2); RDW 13.4 % (11.6-15.6); WHITE BLOOD COUNT 8.6 K/mm3 (4.0-10.0)
[2023-02-26] MEDS: morphine SULFATE IMMEDIATE RELEASE 30 MG TAB PO PRN ×2 (09:31→17:32)
[2023-02-26] MEDS: PANTOPRAZOLE 40 MG TABLET PO SCH (09:31)
[2023-02-26] MEDS: POLYETHYLENE GLYCOL (HEALTHYLAX) 3350 17 GM PACKET PO SCH (09:33)
[2023-02-26 09:48] LABS: POTASSIUM 3.7 mmol/L (3.5-5.1)
[2023-02-26 09:58] LABS: ALBUMIN 2.5 g/dl (3.4-5.0); CALCIUM 8.2 mg/dL (8.5-10.1)
[2023-02-26 10:00] LABS: CREATININE 0.6 mg/dL (0.55-1.3)
[2023-02-26 10:02] LABS: BILIRUBIN,TOTAL 0.3 mg/dL (0.2-1)
[2023-02-26] MEDS ORDERED: ACETAMINOPHEN 500 MG TABLET (FP) PO PRN (13:52)
[2023-02-26] MEDS: amLODIPine BESYLATE 10 MG TABLET (FP) PO SCH (14:40)
[2023-02-26] MEDS: LOSARTAN POTASSIUM 50 MG TABLET PO SCH (21:26)
[2023-02-26] MEDS: MELATONIN 5 MG TABLETS PO SCH (21:26)
[2023-02-27] MEDS: HEPARIN NA (PORCINE) 5,000 UNITS/ML 1ML VIAL SQ SCH ×3 (05:36→21:07)
[2023-02-27] MEDS: morphine SULFATE IMMEDIATE RELEASE 30 MG TAB PO PRN ×2 (05:36→13:33)
[2023-02-27] MEDS: DOCUSATE SODIUM 100 MG CAPSULE (FP) PO SCH ×3 (05:40→21:08)
[2023-02-27 09:41] LABS: BASO % 0.8 % (0-2.0); HEMATOCRIT 34.8 % (32.4-45.2); HEMOGLOBIN 12.2 GM/dL (10.7-15.3); LYMPH % 16.2 % (8-40); MCH 30.3 pg (25.7-33.7); MCHC 35.1 g/dl (32.0-36.0); MEAN CELL VOLUME 86.3 fl (80-96); MEAN PLT VOLUME 8.1 fl (7.5-11.1); MONO % 7.2 % (3.8-10.2); NEUT % 72.8 % (42.8-82.8); PLATELET COUNT 376 10^3/uL (134-434); RBC 4.04 M/mm3 (3.60-5.2); RDW 13.7 % (11.6-15.6); WHITE BLOOD COUNT 8.3 K/mm3 (4.0-10.0)
[2023-02-27 10:16] LABS: POTASSIUM 4.3 mmol/L (3.5-5.1)
[2023-02-27 10:18] LABS: ALBUMIN 2.7 g/dl (3.4-5.0); BLOOD UREA NITROGEN 13.5 mg/dL (7-18); CALCIUM 8.5 mg/dL (8.5-10.1)
[2023-02-27 10:20] LABS: CREATININE 0.7 mg/dL (0.55-1.3)
[2023-02-27 10:22] LABS: BILIRUBIN,TOTAL 0.5 mg/dL (0.2-1); TOT PROT 5.5 g/dl (6.4-8.2)
[2023-02-27] MEDS: PANTOPRAZOLE 40 MG TABLET PO SCH (10:34)
[2023-02-27] MEDS: POLYETHYLENE GLYCOL (HEALTHYLAX) 3350 17 GM PACKET PO SCH (10:39)
[2023-02-27] MEDS: amLODIPine BESYLATE 10 MG TABLET (FP) PO SCH (14:32)
[2023-02-27] MEDS: MELATONIN 5 MG TABLETS PO SCH (21:07)
[2023-02-27] MEDS: LOSARTAN POTASSIUM 50 MG TABLET PO SCH (21:07)
[2023-02-28] MEDS: morphine SULFATE IMMEDIATE RELEASE 30 MG TAB PO PRN (03:24)
[2023-02-28] MEDS: CYCLOBENZAPRINE HCL 5 MG TABLET PO PRN (03:26)
[2023-02-28] MEDS: HEPARIN NA (PORCINE) 5,000 UNITS/ML 1ML VIAL SQ SCH ×2 (05:42→21:21)
[2023-02-28] MEDS: DOCUSATE SODIUM 100 MG CAPSULE (FP) PO SCH ×3 (05:42→22:30)
[2023-02-28] MEDS: PANTOPRAZOLE 40 MG TABLET PO SCH (09:10)
[2023-02-28] MEDS: POLYETHYLENE GLYCOL (HEALTHYLAX) 3350 17 GM PACKET PO SCH (09:10)
[2023-02-28] MEDS ORDERED: SUCCINYLCHOLINE CHLORIDE 200 MG/10 ML SYRINGE ONE (13:18)
[2023-02-28] MEDS ORDERED: ROCURONIUM BROMIDE 50 MG/5 ML SYRINGE ONE (13:18)
[2023-02-28] MEDS ORDERED: PROPOFOL 40 ML ONE (13:19)
[2023-02-28] MEDS ORDERED: BUPIVACAINE LIPOSOME/PF (EXPAREL) 266 MG/20 ML VIAL ONE (13:40)
[2023-02-28] MEDS ORDERED: GENTAMICIN SO4 80 MG/2 ML VIAL ONE (13:40)
[2023-02-28] MEDS ORDERED: BUPIVACAINE HCL/PF 0.5% (5MG/ML) 10 ML VIAL ONE (13:40)
[2023-02-28] MEDS ORDERED: MIDAZOLAM HCL 2 MG/2 ML SINGLE DOSE VIAL ONE (13:56)
[2023-02-28] MEDS ORDERED: ceFAZolin SODIUM 1 GM VIAL ONE (13:58)
[2023-02-28] MEDS ORDERED: SODIUM CHLORIDE 0.9% P/F 10 ML VIAL IJ ONE (13:58)
[2023-02-28] MEDS ORDERED: VANCOMYCIN 1,000 MG VIAL (RESTRICTED TO ID ONLY) ONE (14:44)
[2023-02-28] MEDS ORDERED: ceFAZolin SODIUM 1 GM VIAL IVPB ONE (14:45)
[2023-02-28] MEDS ORDERED: TRANEXAMIC ACID 1000 MG/10 ML VIAL ONE (14:46)
[2023-02-28] MEDS ORDERED: LIDOCAINE 1%/EPI 1:100000 (20 ML MULTI DOSE VIAL) IJ ONE (14:51)
[2023-02-28] MEDS ORDERED: VANCOMYCIN 1 GM in D5W (PRE-DOCKED) 1,000 MG/250 ML (RESTRICTED TO ID ONLY IVPB ONE (14:51)
[2023-02-28] MEDS ORDERED: GENTAMICIN SO4 80 MG/2 ML VIAL IVPB ONE ×2 (14:54→15:10)
[2023-02-28] MEDS ORDERED: HYDROmorphone HCl 2 MG/ML VIAL ONE (14:55)
[2023-02-28] MEDS ORDERED: ESMOLOL HCL 100,000 MCG/10 ML VIAL ONE (15:05)
[2023-02-28] MEDS ORDERED: THROMBIN (BOVINE) 5,000 UNIT VIAL TP ONE (15:05)
[2023-02-28] MEDS ORDERED: HYDROGEN PEROXIDE 473 ML PO ONE (15:10)
[2023-02-28] MEDS ORDERED: METOPROLOL TARTRATE 5 MG/5 ML VIAL ONE (15:14)
[2023-02-28] MEDS ORDERED: NEOSTIGMINE METHYLSULFATE 0.5 MG/1 ML - 10 ML MDV ONE (15:28)
[2023-02-28] MEDS ORDERED: ONDANSETRON 4 MG/2 ML VIAL ONE (15:29)
[2023-02-28] MEDS ORDERED: ONDANSETRON 4 MG/2 ML VIAL IVPUSH PRN ×3 (16:02→16:10)
[2023-02-28] MEDS ORDERED: ACETAMINOPHEN 500 MG TABLET (FP) PO PRN (16:10)
[2023-02-28] MEDS ORDERED: diphenhydrAMINE HCL 25 MG CAPSULE (FP) PO PRN (16:10)
[2023-02-28] MEDS ORDERED: CYCLOBENZAPRINE HCL 5 MG TABLET PO PRN (16:10)
[2023-02-28] MEDS ORDERED: BENZOCAINE/MENTH/CETYLPYRD CL 1 EACH LOZENGE MM PRN (16:10)
[2023-02-28] MEDS ORDERED: morphine SULFATE IMMEDIATE RELEASE 30 MG TAB PO PRN (16:10)
[2023-02-28] MEDS ORDERED: LACTATED RINGERS SOLUTION 1,000 ML IV SCH ×2 (16:15)
[2023-02-28] MEDS ORDERED: HALOPERIDOL LACTATE 5 MG/ML IM ONE ×2 (18:46)
[2023-02-28] MEDS: CEFTRIAXONE 2 GM in DEXTROSE 5%-WATER 100 ML IVPB SCH ×2 (19:45→21:29)
[2023-02-28] MEDS: VANCOMYCIN/WATER FOR INJ (PEG) 1,000 MG/200 ML BAG IVPB SCH (21:28)
[2023-02-28 21:43] VITALS: RESP 18
[2023-02-28] MEDS ORDERED: LOSARTAN POTASSIUM 50 MG TABLET PO SCH (22:00)
[2023-02-28] MEDS ORDERED: MELATONIN 5 MG TABLETS PO SCH (22:00)
[2023-03-01] MEDS: DOCUSATE SODIUM 100 MG CAPSULE (FP) PO SCH ×3 (06:54→13:41)
[2023-03-01] MEDS: HEPARIN NA (PORCINE) 5,000 UNITS/ML 1ML VIAL SQ SCH ×3 (06:54→13:41)
[2023-03-01] MEDS: amLODIPine BESYLATE 10 MG TABLET (FP) PO SCH (07:30)
[2023-03-01] MEDS: VANCOMYCIN/WATER FOR INJ (PEG) 1,000 MG/200 ML BAG IVPB SCH (09:04)
[2023-03-01 09:47] LABS: BASO % 0.2 % (0-2.0); EOS % 0.3 % (0-4.5); HEMATOCRIT 33.4 % (32.4-45.2); HEMOGLOBIN 11.2 GM/dL (10.7-15.3); MCH 29.3 pg (25.7-33.7); MCHC 33.5 g/dl (32.0-36.0); MEAN CELL VOLUME 87.7 fl (80-96); MEAN PLT VOLUME 8.2 fl (7.5-11.1); MONO % 11.1 % (3.8-10.2); NEUT % 77.4 % (42.8-82.8); PLATELET COUNT 408 10^3/uL (134-434); RBC 3.81 M/mm3 (3.60-5.2); RDW 13.2 % (11.6-15.6); WHITE BLOOD COUNT 15.4 K/mm3 (4.0-10.0)
[2023-03-01] MEDS ORDERED: PANTOPRAZOLE 40 MG TABLET PO SCH (10:00)
[2023-03-01] MEDS ORDERED: POLYETHYLENE GLYCOL (HEALTHYLAX) 3350 17 GM PACKET PO SCH (10:00)
[2023-03-01 10:09] LABS: POTASSIUM 4.1 mmol/L (3.5-5.1)
[2023-03-01 10:16] LABS: ALBUMIN 2.6 g/dl (3.4-5.0); BLOOD UREA NITROGEN 12.6 mg/dL (7-18); CALCIUM 8.7 mg/dL (8.5-10.1); MAGNESIUM 1.9 mg/dL (1.8-2.4)
[2023-03-01 10:17] LABS: CREATININE 0.6 mg/dL (0.55-1.3)
[2023-03-01 10:20] LABS: BILIRUBIN,TOTAL 0.5 mg/dL (0.2-1); TOT PROT 5.4 g/dl (6.4-8.2)
[2023-03-01] MEDS: CEFTRIAXONE 2 GM in DEXTROSE 5%-WATER 100 ML IVPB SCH (10:33)
[2023-03-01 11:16] VITALS: BP 124/62; PULSE 104; TEMP 98.6
[2023-03-01] MEDS ORDERED: amLODIPine BESYLATE 10 MG TABLET (FP) PO SCH ×2 (14:00→15:00)
== END 2023-03-01 14:47 | disposition home or self-care (01) | DRG 472 ==
LOC: J2C 02-21 04:00 → J8W 02-21 17:41
PROVIDERS: ADMIT Internal Medicine; ATTEND Nurse Practitioner Acute Care
PROC: 0RP10AZ Removal of Interbody Fusion Device from Cervical Vertebral Joint, Open Approach (ICD-10-PCS; 2023-02-21)
PROC: 0RB30ZZ Excision of Cervical Vertebral Disc, Open Approach (ICD-10-PCS; 2023-02-21)
PROC: 00NW0ZZ Release Cervical Spinal Cord, Open Approach (ICD-10-PCS; 2023-02-21)
PROC: 00QT0ZZ Repair Spinal Meninges, Open Approach (ICD-10-PCS; 2023-02-21)
PROC: 4A10X4G Monitoring of Central Nervous Electrical Activity, Intraoperative, External Approach (ICD-10-PCS; 2023-02-21)
PROC: 0RG20A0 Fusion of 2 or more Cervical Vertebral Joints with Interbody Fusion Device, Anterior Approach, Anterior Column, Open Approach (ICD-10-PCS; principal; 2023-02-21 08:00)
PROC: 00QT0ZZ Repair Spinal Meninges, Open Approach (ICD-10-PCS; 2023-02-28)
PROC: 001U0J6 Bypass Spinal Canal to Peritoneal Cavity with Synthetic Substitute, Open Approach (ICD-10-PCS; 2023-02-28)
PROC: 4A11X4G Monitoring of Peripheral Nervous Electrical Activity, Intraoperative, External Approach (ICD-10-PCS; 2023-02-28)
DX: M47.12 Other spondylosis with myelopathy, cervical region (principal); G97.41 Accidental puncture or laceration of dura during a procedure; G97.82 Other postprocedural complications and disorders of nervous system; G96.198 Other disorders of meninges, not elsewhere classified; I10 Essential (primary) hypertension; K21.9 Gastro-esophageal reflux disease without esophagitis; M17.0 Bilateral primary osteoarthritis of knee; M40.292 Other kyphosis, cervical region; Y83.8 Other surgical procedures as the cause of abnormal reaction of the patient, or of later complication, without mention of misadventure at the time of the procedure; Z96.651 Presence of right artificial knee joint; D72.829 Elevated white blood cell count, unspecified; Y83.9 Surgical procedure, unspecified as the cause of abnormal reaction of the patient, or of later complication, without mention of misadventure at the time of the procedure
CPT/HCPCS: 36415; 70450-TC; 71046-TC-FY; 72125-TC; 76000-TC-FY; 80048; 80053; 81003; 83735; 85025; 85027; 86850; 86900; 86901; 87086; 94760; 97116-GP; 97161-GP; C1713; J1644

== ENCOUNTER 2023-03-03 11:09 | Observation (INO) | payer OTHER ==
[2023-03-03] MEDS ORDERED: morphine CARPU-JECT 4 MG/1 ML DISP.SYRIN IVPUSH ONE ×2 (12:30→15:09)
[2023-03-03] MEDS ORDERED: morphine SULFATE 4 MG/ML VIAL ONE ×2 (12:37→15:25)
[2023-03-03 12:59] LABS: HEMATOCRIT 36.8 % (32.4-45.2); HEMOGLOBIN 12.7 GM/dL (10.7-15.3); MCH 30.4 pg (25.7-33.7); MCHC 34.6 g/dl (32.0-36.0); MEAN CELL VOLUME 87.8 fl (80-96); MEAN PLT VOLUME 8.1 fl (7.5-11.1); PLATELET COUNT 419 10^3/uL (134-434); RBC 4.19 M/mm3 (3.60-5.2); RDW 13.5 % (11.6-15.6); WHITE BLOOD COUNT 11.5 K/mm3 (4.0-10.0)
[2023-03-03 13:17] LABS: ALBUMIN 2.9 g/dl (3.4-5.0); BLOOD UREA NITROGEN 9.6 mg/dL (7-18); CALCIUM 8.9 mg/dL (8.5-10.1)
[2023-03-03 13:20] LABS: CREATININE 0.7 mg/dL (0.55-1.3)
[2023-03-03 13:22] LABS: BILIRUBIN,TOTAL 0.4 mg/dL (0.2-1)
[2023-03-03 14:58] LABS: ANISOCYTOSIS 0; HELMET CELLS 0; HOWELL-JOLLY BODIES 0; MACROCYTOSIS 0; OVALOCYTE 0; ROULEAU 0; SICKELED CELLS 0; TARGET CELLS 0; TEAR DROP CELLS 0; TOXIC GRANULATION 0
[2023-03-03] MEDS ORDERED: NALOXONE HCL 0.4 MG/ML VIAL IVPUSH PRN (15:13)
[2023-03-03] MEDS ORDERED: morphine SULFATE 4 MG/ML VIAL IVPUSH PRN (15:13)
[2023-03-03] MEDS ORDERED: ENOXAPARIN NA (PORCINE) 40 MG/0.4 ML DISP.SYRIN SQ ONE (15:25)
[2023-03-03] MEDS ORDERED: DOCUSATE SODIUM 100 MG CAPSULE (FP) PO ONE (15:25)
[2023-03-03] MEDS ORDERED: ACETAMINOPHEN INJECTION 100 ML IVPB ONE (15:25)
[2023-03-03] MEDS: ACETAMINOPHEN 1000 MG/100 ML BAG IVPB SCH ×2 (15:37→23:19)
[2023-03-03 18:47] VITALS: BMI 25.0
[2023-03-03] MEDS: ATORVASTATIN CA 10 MG TABLET (FP) PO SCH (21:10)
[2023-03-03] MEDS: DOCUSATE SODIUM 100 MG CAPSULE (FP) PO SCH ×2 (21:10→21:22)
[2023-03-04] MEDS: ACETAMINOPHEN 1000 MG/100 ML BAG IVPB SCH (07:15)
[2023-03-04] MEDS ORDERED: oxyCODONE HCL 5 MG TABLET PO PRN ×3 (08:32→18:08)
[2023-03-04] MEDS: ENOXAPARIN NA (PORCINE) 40 MG/0.4 ML DISP.SYRIN SQ SCH (09:03)
[2023-03-04] MEDS: amLODIPine BESYLATE 10 MG TABLET (FP) PO SCH (09:04)
[2023-03-04] MEDS: LOSARTAN POTASSIUM 50 MG TABLET PO SCH (09:04)
[2023-03-04] MEDS: POLYETHYLENE GLYCOL (HEALTHYLAX) 3350 17 GM PACKET PO SCH (09:08)
[2023-03-04] MEDS ORDERED: PATIENT'S OWN MEDICATION (NON-FORMULARY) (Irbesartan [Avapro] 300 MG Tablet) PO SCH (10:00)
[2023-03-04 10:11] LABS: EOS % 6.1 % (0-4.5); HEMATOCRIT 37.9 % (32.4-45.2); HEMOGLOBIN 12.4 GM/dL (10.7-15.3); LYMPH % 20.2 % (8-40); MCH 29.4 pg (25.7-33.7); MCHC 32.6 g/dl (32.0-36.0); MEAN CELL VOLUME 90.1 fl (80-96); MEAN PLT VOLUME 8.2 fl (7.5-11.1); MONO % 8.6 % (3.8-10.2); NEUT % 64.1 % (42.8-82.8); PLATELET COUNT 449 10^3/uL (134-434); RBC 4.21 M/mm3 (3.60-5.2); RDW 13.6 % (11.6-15.6); WHITE BLOOD COUNT 10.2 K/mm3 (4.0-10.0)
[2023-03-04 10:31] LABS: POTASSIUM 3.7 mmol/L (3.5-5.1)
[2023-03-04 10:33] LABS: ALBUMIN 2.8 g/dl (3.4-5.0); CALCIUM 8.6 mg/dL (8.5-10.1)
[2023-03-04 10:34] LABS: BLOOD UREA NITROGEN 10.7 mg/dL (7-18)
[2023-03-04 10:37] LABS: CREATININE 0.8 mg/dL (0.55-1.3); PHOSPHOROUS 3.2 mg/dL (2.5-4.9)
[2023-03-04 10:38] LABS: BILIRUBIN,TOTAL 0.4 mg/dL (0.2-1); TOT PROT 5.7 g/dl (6.4-8.2)
[2023-03-04] MEDS ORDERED: KETOROLAC TROMETHAMINE 15 MG/ML VIAL IVPUSH ONE (11:56)
[2023-03-04] MEDS ORDERED: CYCLOBENZAPRINE HCL 5 MG TABLET PO ONE (11:56)
[2023-03-04] MEDS: GABAPENTIN 100 MG CAPSULE PO SCH ×2 (14:33→21:33)
[2023-03-04] MEDS: ACETAMINOPHEN 325 MG TABLET (FP) PO SCH ×2 (18:44→22:36)
[2023-03-04] MEDS: CYCLOBENZAPRINE HCL 5 MG TABLET PO SCH (21:32)
[2023-03-04] MEDS: ATORVASTATIN CA 10 MG TABLET (FP) PO SCH (21:33)
[2023-03-04] MEDS: DOCUSATE SODIUM 100 MG CAPSULE (FP) PO SCH (21:48)
[2023-03-05] MEDS: ACETAMINOPHEN 325 MG TABLET (FP) PO SCH ×3 (06:09→21:39)
[2023-03-05] MEDS: CYCLOBENZAPRINE HCL 5 MG TABLET PO SCH ×3 (06:09→21:38)
[2023-03-05] MEDS: GABAPENTIN 100 MG CAPSULE PO SCH ×3 (06:10→21:39)
[2023-03-05] MEDS: LOSARTAN POTASSIUM 50 MG TABLET PO SCH (08:59)
[2023-03-05] MEDS: amLODIPine BESYLATE 10 MG TABLET (FP) PO SCH (08:59)
[2023-03-05] MEDS: ENOXAPARIN NA (PORCINE) 40 MG/0.4 ML DISP.SYRIN SQ SCH (08:59)
[2023-03-05] MEDS: POLYETHYLENE GLYCOL (HEALTHYLAX) 3350 17 GM PACKET PO SCH (08:59)
[2023-03-05] MEDS ORDERED: oxyCODONE HCL 5 MG TABLET PO PRN (16:06)
[2023-03-05] MEDS ORDERED: IBUPROFEN 600 MG TABLET (FP) PO PRN (16:07)
[2023-03-05] MEDS: LIDOCAINE 4% PATCH TP SCH (17:26)
[2023-03-05] MEDS: DOCUSATE SODIUM 100 MG CAPSULE (FP) PO SCH (21:39)
[2023-03-05] MEDS: ATORVASTATIN CA 10 MG TABLET (FP) PO SCH (21:39)
[2023-03-05] MEDS ORDERED: LIDOCAINE PATCH REMOVAL MC SCH (22:00)
[2023-03-06 05:30] VITALS: RESP 18
[2023-03-06] MEDS: GABAPENTIN 100 MG CAPSULE PO SCH ×2 (06:11→13:19)
[2023-03-06] MEDS: ACETAMINOPHEN 325 MG TABLET (FP) PO SCH ×2 (06:11→13:21)
[2023-03-06] MEDS: CYCLOBENZAPRINE HCL 5 MG TABLET PO SCH ×2 (06:11→13:19)
[2023-03-06] MEDS: amLODIPine BESYLATE 10 MG TABLET (FP) PO SCH (09:13)
[2023-03-06] MEDS: LOSARTAN POTASSIUM 50 MG TABLET PO SCH (09:13)
[2023-03-06] MEDS: ENOXAPARIN NA (PORCINE) 40 MG/0.4 ML DISP.SYRIN SQ SCH (09:14)
[2023-03-06] MEDS: LIDOCAINE 4% PATCH TP SCH (09:14)
[2023-03-06] MEDS: POLYETHYLENE GLYCOL (HEALTHYLAX) 3350 17 GM PACKET PO SCH (09:14)
[2023-03-06 13:04] VITALS: BP 122/87; PULSE 129; TEMP 98.1
== END 2023-03-06 14:20 | disposition home or self-care (01) ==
LOC: JER 11:09 → JERBED 14:47 → J6S 18:21
PROVIDERS: ADMIT Internal Medicine; ATTEND Internal Medicine
PROC: 3E033NZ Introduction of Analgesics, Hypnotics, Sedatives into Peripheral Vein, Percutaneous Approach (ICD-10-PCS; principal; 2023-03-03)
PROC: 3E023GC Introduction of Other Therapeutic Substance into Muscle, Percutaneous Approach (ICD-10-PCS; 2023-03-03)
PROC: 3E0333Z Introduction of Anti-inflammatory into Peripheral Vein, Percutaneous Approach (ICD-10-PCS; 2023-03-03)
PROC: 3E033NZ Introduction of Analgesics, Hypnotics, Sedatives into Peripheral Vein, Percutaneous Approach (ICD-10-PCS; 2023-03-03)
DX: G89.18 Other acute postprocedural pain (principal); R25.2 Cramp and spasm; K21.9 Gastro-esophageal reflux disease without esophagitis; Z87.440 Personal history of urinary (tract) infections; N20.0 Calculus of kidney; E78.00 Pure hypercholesterolemia, unspecified; I10 Essential (primary) hypertension; Z96.651 Presence of right artificial knee joint
CPT/HCPCS: 36415; 71045-TC-FY; 72125-TC; 80053; 82962; 83735; 84100; 85025; 93005; 93010; 96372; 96374; 96375; 96376; 97116-GP; 97162-GP; 99285-25; G0378

== ENCOUNTER 2023-03-14 20:04 | Emergency (ER) | payer OTHER ==
[2023-03-14 20:21] VITALS: BP 136/83; PULSE 57; RESP 22; TEMP 97.4; BMI 25.2
[2023-03-14] MEDS ORDERED: SODIUM CHLORIDE 0.9% 500 ML INFUS.BAG IV ONE (22:01)
[2023-03-14 22:17] LABS: BASO % 1.1 % (0-2.0); EOS % 3.4 % (0-4.5); HEMATOCRIT 36.9 % (32.4-45.2); HEMOGLOBIN 12.7 GM/dL (10.7-15.3); LYMPH % 15.8 % (8-40); MCH 29.7 pg (25.7-33.7); MCHC 34.4 g/dl (32.0-36.0); MEAN CELL VOLUME 86.4 fl (80-96); MEAN PLT VOLUME 8.3 fl (7.5-11.1); MONO % 6.3 % (3.8-10.2); NEUT % 73.4 % (42.8-82.8); PLATELET COUNT 463 10^3/uL (134-434); RBC 4.27 M/mm3 (3.60-5.2); WHITE BLOOD COUNT 12.2 K/mm3 (4.0-10.0)
[2023-03-14] MEDS ORDERED: FAMOTIDINE 20 MG/50 ML IVPB 20 MG/50 ML MG IVPB ONE ×2 (22:23→23:37)
[2023-03-14 22:30] LABS: INR 1.13 (0.83-1.09); PROTHROMBIN TIME (PATIENT) 13.1 SEC (9.7-13.0)
[2023-03-14 22:33] LABS: ACTIVATED PTT 29.2 SECONDS (25.2-36.5)
[2023-03-14 22:38] LABS: CHLORIDE 106 mmol/L (98-107); SODIUM 127 mmol/L (136-145)
[2023-03-14 22:40] LABS: BLOOD UREA NITROGEN 10.7 mg/dL (7-18); CALCIUM 8.3 mg/dL (8.5-10.1)
[2023-03-14 22:41] LABS: ALBUMIN 2.6 g/dl (3.4-5.0); CO2 25 mmol/L (21-32); GLUCOSE,RANDOM 97 mg/dL (74-106); LIPASE < 10 U/L (73-393); MAGNESIUM 1.9 mg/dL (1.8-2.4)
[2023-03-14 22:43] LABS: CREATININE 0.8 mg/dL (0.55-1.3)
[2023-03-14 22:44] LABS: PHOSPHOROUS 4.1 mg/dL (2.5-4.9)
[2023-03-14 22:45] LABS: TOT PROT 7.5 g/dl (6.4-8.2)
[2023-03-14 22:46] LABS: ALK PHOS 140 U/L (45-117)
[2023-03-14 22:49] LABS: N-TERMINAL BNP 98.7 pg/ml (5-450)
[2023-03-14 23:58] LABS: EPI CELLS 2 /uL (0-25.1); HYALINE CASTS 0 /uL (0-3.1); URINE APPEARANCE CLOUDY; URINE BACTERIA >9,000 /uL (0-1359); URINE BILIRUBIN NEGATIVE (NEGATIVE); URINE COLOR YELLOW; URINE GLUCOSE (UA) NEGATIVE (NEGATIVE); URINE KETONE NEGATIVE (NEGATIVE); URINE LEUK ESTERASE 3+ (NEGATIVE); URINE NITRITE NEGATIVE (NEGATIVE); URINE PROTEIN TRACE (NEGATIVE); URINE RBC 43 /uL (0-23.9); URINE UROBILINOGEN 0.2 mg/dL (0.2-1.0); URINE WBC 2052 /uL (0-25.8)
[2023-03-15 03:17] LABS: POTASSIUM 3.8 mmol/L (3.5-5.1)
[2023-03-15 03:19] LABS: BLOOD UREA NITROGEN 10.2 mg/dL (7-18)
[2023-03-15 03:22] LABS: CREATININE 0.7 mg/dL (0.55-1.3)
[2023-03-15 03:24] LABS: BILIRUBIN,TOTAL 0.5 mg/dL (0.2-1); TOT PROT 6.2 g/dl (6.4-8.2)
[2023-03-15 03:27] LABS: ALBUMIN 3.2 g/dl (3.4-5.0)
== END 2023-03-15 04:03 | disposition home or self-care (01) ==
LOC: JER 20:04
PROC: 3E033GC Introduction of Other Therapeutic Substance into Peripheral Vein, Percutaneous Approach (ICD-10-PCS; principal; 2023-03-14)
DX: N39.0 Urinary tract infection, site not specified (principal); R00.2 Palpitations; R13.10 Dysphagia, unspecified; M54.2 Cervicalgia; T81.89XA Other complications of procedures, not elsewhere classified, initial encounter; Z20.822 Contact with and (suspected) exposure to COVID-19
CPT/HCPCS: 0241U-QW; 36415; 70491-TC; 71045-TC-FY; 80053; 81003; 83605; 83690; 83735; 83880; 84100; 84439; 84443; 84484; 85025; 85610; 85730; 87086; 87186; 93005; 93010; 96365; 99285-25

== ENCOUNTER 2023-03-19 09:24 | Inpatient (IN) | payer OTHER ==
[2023-03-19 11:54] LABS: BASO % 1.2 % (0-2.0); EOS % 3.2 % (0-4.5); HEMATOCRIT 39.3 % (32.4-45.2); HEMOGLOBIN 13.4 GM/dL (10.7-15.3); LYMPH % 13.6 % (8-40); MCH 29.9 pg (25.7-33.7); MEAN CELL VOLUME 87.9 fl (80-96); MEAN PLT VOLUME 8.2 fl (7.5-11.1); MONO % 7.9 % (3.8-10.2); NEUT % 74.1 % (42.8-82.8); PLATELET COUNT 422 10^3/uL (134-434); RBC 4.48 M/mm3 (3.60-5.2); RDW 13.4 % (11.6-15.6); WHITE BLOOD COUNT 11.3 K/mm3 (4.0-10.0)
[2023-03-19 11:58] LABS: EPI CELLS 8 /uL (0-25.1); HYALINE CASTS 0 /uL (0-3.1); URINE APPEARANCE CLEAR; URINE BACTERIA 0 /uL (0-1359); URINE BILIRUBIN NEGATIVE (NEGATIVE); URINE COLOR YELLOW; URINE GLUCOSE (UA) NEGATIVE (NEGATIVE); URINE KETONE NEGATIVE (NEGATIVE); URINE LEUK ESTERASE NEGATIVE (NEGATIVE); URINE NITRITE NEGATIVE (NEGATIVE); URINE PROTEIN NEGATIVE (NEGATIVE); URINE RBC 7 /uL (0-23.9); URINE UROBILINOGEN 0.2 mg/dL (0.2-1.0); URINE WBC 15 /uL (0-25.8)
[2023-03-19 12:01] LABS: INR 1.14 (0.83-1.09); PROTHROMBIN TIME (PATIENT) 13.2 SEC (9.7-13.0)
[2023-03-19 12:03] LABS: ACTIVATED PTT 27.6 SECONDS (25.2-36.5)
[2023-03-19] MEDS ORDERED: LORazepam 2 MG TABLET PO ONE (12:18)
[2023-03-19 12:19] LABS: POTASSIUM 3.7 mmol/L (3.5-5.1)
[2023-03-19] MEDS ORDERED: LORazepam 1 MG TABLET ONE (12:19)
[2023-03-19 12:22] LABS: ALBUMIN 3.2 g/dl (3.4-5.0); BLOOD UREA NITROGEN 11.9 mg/dL (7-18); MAGNESIUM 1.6 mg/dL (1.8-2.4)
[2023-03-19 12:25] LABS: CREATININE 0.8 mg/dL (0.55-1.3)
[2023-03-19 12:26] LABS: BILIRUBIN,TOTAL 0.7 mg/dL (0.2-1)
[2023-03-19 12:27] LABS: TOT PROT 6.3 g/dl (6.4-8.2)
[2023-03-19 12:43] LABS: URINE CRYSTALS MODERATE /hpf
[2023-03-19] MEDS ORDERED: MAGNESIUM 1GM/D5W - 1 GM/100 ML IVPB IVPB ONE (14:18)
[2023-03-19] MEDS ORDERED: DOXYCYCLINE HYCLATE 100 MG CAPSULE PO ONE ×2 (15:57→17:06)
[2023-03-19] MEDS ORDERED: ACETAMINOPHEN 325 MG TABLET (FP) PO PRN (16:51)
[2023-03-19] MEDS ORDERED: KETOROLAC TROMETHAMINE 15 MG/ML VIAL IVPUSH PRN (16:51)
[2023-03-19] MEDS ORDERED: VANCOMYCIN/WATER 2 GRAMS 2,000 MG/400 ML PIGGYBACK IVPB ONE (17:30)
[2023-03-19] MEDS ORDERED: ATORVASTATIN CA 20 MG TABLET (FP) ONE (21:18)
[2023-03-19] MEDS ORDERED: GABAPENTIN 100 MG CAPSULE ONE (21:18)
[2023-03-19] MEDS: ATORVASTATIN CA 20 MG TABLET (FP) PO SCH (21:26)
[2023-03-19] MEDS: GABAPENTIN 100 MG CAPSULE PO SCH (21:26)
[2023-03-20] MEDS ORDERED: LIDOCAINE 1%/EPI 1:100000 (20 ML MULTI DOSE VIAL) IJ ONE
[2023-03-20] MEDS ORDERED: GABAPENTIN 100 MG CAPSULE ONE (06:00)
[2023-03-20] MEDS: GABAPENTIN 100 MG CAPSULE PO SCH ×3 (06:00→23:12)
[2023-03-20] MEDS: amLODIPine BESYLATE 10 MG TABLET (FP) PO SCH (09:44)
[2023-03-20 10:47] LABS: BASO % 0.9 % (0-2.0); EOS % 0.9 % (0-4.5); HEMATOCRIT 36.6 % (32.4-45.2); LYMPH % 15.5 % (8-40); MCH 30.7 pg (25.7-33.7); MCHC 35.4 g/dl (32.0-36.0); MEAN CELL VOLUME 86.7 fl (80-96); MEAN PLT VOLUME 8.4 fl (7.5-11.1); MONO % 9.5 % (3.8-10.2); NEUT % 73.2 % (42.8-82.8); PLATELET COUNT 374 10^3/uL (134-434); RBC 4.22 M/mm3 (3.60-5.2); RDW 13.3 % (11.6-15.6); WHITE BLOOD COUNT 10.4 K/mm3 (4.0-10.0)
[2023-03-20 10:53] LABS: INR 1.18 (0.83-1.09); PROTHROMBIN TIME (PATIENT) 13.7 SEC (9.7-13.0)
[2023-03-20 10:56] LABS: ACTIVATED PTT 26.6 SECONDS (25.2-36.5)
[2023-03-20 11:16] LABS: ALBUMIN 2.9 g/dl (3.4-5.0); BLOOD UREA NITROGEN 9.6 mg/dL (7-18); CALCIUM 8.2 mg/dL (8.5-10.1); MAGNESIUM 1.8 mg/dL (1.8-2.4)
[2023-03-20 11:19] LABS: CREATININE 0.6 mg/dL (0.55-1.3)
[2023-03-20 11:21] LABS: BILIRUBIN,TOTAL 0.8 mg/dL (0.2-1); TOT PROT 5.8 g/dl (6.4-8.2)
[2023-03-20] MEDS ORDERED: PIPERACILLIN/TAZOB 4.5 GM 4.5 GM in DEXTROSE 5%-WATER 100 ML IVPB ONE (12:51)
[2023-03-20] MEDS ORDERED: BACITRACIN ZINC 15 GM TUBE TOPICAL OINTMENT ONE (12:53)
[2023-03-20] MEDS ORDERED: THROMBIN (BOVINE) 5,000 UNIT VIAL TP ONE ×3 (12:54→14:14)
[2023-03-20] MEDS ORDERED: BUPIVACAINE HCL/PF 0.5% (5MG/ML) 10 ML VIAL ONE (12:55)
[2023-03-20] MEDS ORDERED: MEROPENEM 1 GM in DEXTROSE 5%-WATER 100 ML IVPB ONE (13:15)
[2023-03-20] MEDS ORDERED: GENTAMICIN SO4 80 MG/2 ML VIAL ONE (13:16)
[2023-03-20] MEDS ORDERED: FENTANYL CITRATE/PF 50 MCG/ML VIAL ONE ×3 (13:44→17:08)
[2023-03-20] MEDS ORDERED: VANCOMYCIN 1,000 MG in DEXTROSE 5%-WATER - 250 ML IVPB ONE (14:00)
[2023-03-20] MEDS ORDERED: ROCURONIUM BROMIDE 50 MG/5 ML SYRINGE ONE (14:02)
[2023-03-20] MEDS ORDERED: VANCOMYCIN 1,000 MG VIAL (RESTRICTED TO ID ONLY) IVPB ONE (14:07)
[2023-03-20] MEDS ORDERED: ceFAZolin SODIUM 1 GM VIAL IVPB ONE (14:07)
[2023-03-20] MEDS ORDERED: GENTAMICIN SO4 80 MG/2 ML VIAL IVPB ONE ×2 (14:30)
[2023-03-20] MEDS ORDERED: NEOSTIGMINE METHYLSULFATE 0.5 MG/1 ML - 10 ML MDV ONE (14:30)
[2023-03-20] MEDS ORDERED: LACTATED RINGERS SOLUTION 1,000 ML IV SCH (15:45)
[2023-03-20] MEDS ORDERED: diphenhydrAMINE HCL 25 MG CAPSULE (FP) PO PRN (15:50)
[2023-03-20] MEDS ORDERED: ONDANSETRON 4 MG/2 ML VIAL IVPUSH PRN (15:50)
[2023-03-20] MEDS ORDERED: oxyCODONE HCL 5 MG TABLET PO PRN ×2 (15:50)
[2023-03-20] MEDS ORDERED: LACTATED RINGERS SOLUTION 1,000 ML/1,000 ML INFUS.BAG IV SCH (16:00)
[2023-03-20] MEDS ORDERED: ACETAMINOPHEN INJECTION 100 ML IVPB ONE (17:47)
[2023-03-20] MEDS: ACETAMINOPHEN 1000 MG/100 ML BAG IVPB SCH (17:50)
[2023-03-20] MEDS: PIPERACILLIN/TAZOB 3.375 GM 3.375 GM in DEXTROSE 5%-WATER - 50 ML IVPB SCH (18:50)
[2023-03-20] MEDS ORDERED: ATORVASTATIN CA 10 MG TABLET (FP) PO SCH (22:00)
[2023-03-20] MEDS ORDERED: PATIENT'S OWN MEDICATION (NON-FORMULARY) (Lidocaine Patch Removal 1 EACH Each) MC SCH (22:00)
[2023-03-20] MEDS ORDERED: GABAPENTIN 100 MG CAPSULE PO SCH (22:00)
[2023-03-20] MEDS ORDERED: ACETAMINOPHEN 325 MG TABLET (FP) PO SCH (22:00)
[2023-03-20] MEDS: CYCLOBENZAPRINE HCL 5 MG TABLET PO SCH (22:52)
[2023-03-20] MEDS: DOCUSATE SODIUM 100 MG CAPSULE (FP) PO SCH (22:52)
[2023-03-20] MEDS: ATORVASTATIN CA 20 MG TABLET (FP) PO SCH (22:53)
[2023-03-20] MEDS: HEPARIN NA (PORCINE) 5,000 UNITS/ML 1ML VIAL SQ SCH (22:53)
[2023-03-20] MEDS: LIDOCAINE 4% PATCH TP SCH (23:01)
[2023-03-20] MEDS: LIDOCAINE PATCH REMOVAL MC SCH (23:05)
[2023-03-21 01:37] VITALS: RESP 20
[2023-03-21] MEDS: PIPERACILLIN/TAZOB 3.375 GM 3.375 GM in DEXTROSE 5%-WATER - 50 ML IVPB SCH ×3 (02:21→17:19)
[2023-03-21] MEDS: ACETAMINOPHEN 1000 MG/100 ML BAG IVPB SCH ×2 (03:12→10:38)
[2023-03-21 03:40] VITALS: BMI 24.3
[2023-03-21] MEDS: CYCLOBENZAPRINE HCL 5 MG TABLET PO SCH ×3 (05:41→22:01)
[2023-03-21] MEDS: GABAPENTIN 100 MG CAPSULE PO SCH ×3 (05:41→22:00)
[2023-03-21] MEDS: DOCUSATE SODIUM 100 MG CAPSULE (FP) PO SCH ×3 (05:42→22:01)
[2023-03-21] MEDS: HEPARIN NA (PORCINE) 5,000 UNITS/ML 1ML VIAL SQ SCH ×3 (05:42→22:01)
[2023-03-21 07:39] LABS: BASO % 0.9 % (0-2.0); HEMATOCRIT 32.7 % (32.4-45.2); LYMPH % 16.7 % (8-40); MCH 29.7 pg (25.7-33.7); MCHC 33.5 g/dl (32.0-36.0); MEAN CELL VOLUME 88.7 fl (80-96); MEAN PLT VOLUME 8.3 fl (7.5-11.1); MONO % 10.4 % (3.8-10.2); PLATELET COUNT 289 10^3/uL (134-434); RBC 3.69 M/mm3 (3.60-5.2); RDW 13.2 % (11.6-15.6); WHITE BLOOD COUNT 8.1 K/mm3 (4.0-10.0)
[2023-03-21 08:01] LABS: POTASSIUM 3.4 mmol/L (3.5-5.1)
[2023-03-21 08:05] LABS: ALBUMIN 2.4 g/dl (3.4-5.0); CALCIUM 8.4 mg/dL (8.5-10.1)
[2023-03-21 08:08] LABS: CREATININE 0.7 mg/dL (0.55-1.3)
[2023-03-21 08:10] LABS: BILIRUBIN,TOTAL 0.8 mg/dL (0.2-1); TOT PROT 4.8 g/dl (6.4-8.2)
[2023-03-21] MEDS: FERROUS SO4 325 MG TABLET (FP) PO SCH (09:22)
[2023-03-21] MEDS: amLODIPine BESYLATE 10 MG TABLET (FP) PO SCH (09:22)
[2023-03-21] MEDS: FOLIC ACID 1 MG TABLET (FP) PO SCH (09:22)
[2023-03-21] MEDS: LIDOCAINE 4% PATCH TP SCH (09:23)
[2023-03-21] MEDS ORDERED: amLODIPine BESYLATE 10 MG TABLET (FP) PO SCH (10:00)
[2023-03-21] MEDS ORDERED: ACETAMINOPHEN 325 MG TABLET (FP) PO PRN (14:00)
[2023-03-21] MEDS: ATORVASTATIN CA 20 MG TABLET (FP) PO SCH (22:01)
[2023-03-21] MEDS: LIDOCAINE PATCH REMOVAL MC SCH (22:08)
[2023-03-22] MEDS: PIPERACILLIN/TAZOB 3.375 GM 3.375 GM in DEXTROSE 5%-WATER - 50 ML IVPB SCH ×2 (01:55→09:56)
[2023-03-22] MEDS: DOCUSATE SODIUM 100 MG CAPSULE (FP) PO SCH (05:57)
[2023-03-22] MEDS: GABAPENTIN 100 MG CAPSULE PO SCH (05:58)
[2023-03-22] MEDS: HEPARIN NA (PORCINE) 5,000 UNITS/ML 1ML VIAL SQ SCH (05:58)
[2023-03-22] MEDS: CYCLOBENZAPRINE HCL 5 MG TABLET PO SCH (05:58)
[2023-03-22 09:37] LABS: BASO % 0.7 % (0-2.0); EOS % 4.1 % (0-4.5); HEMATOCRIT 38.9 % (32.4-45.2); HEMOGLOBIN 12.6 GM/dL (10.7-15.3); LYMPH % 15.8 % (8-40); MCH 29.2 pg (25.7-33.7); MCHC 32.3 g/dl (32.0-36.0); MEAN CELL VOLUME 90.6 fl (80-96); MEAN PLT VOLUME 8.8 fl (7.5-11.1); MONO % 8.4 % (3.8-10.2); PLATELET COUNT 405 10^3/uL (134-434); RBC 4.29 M/mm3 (3.60-5.2); RDW 13.3 % (11.6-15.6); WHITE BLOOD COUNT 10.2 K/mm3 (4.0-10.0)
[2023-03-22 09:51] VITALS: BP 132/75; PULSE 88; TEMP 98.8
[2023-03-22] MEDS: LIDOCAINE 4% PATCH TP SCH (09:56)
[2023-03-22] MEDS: FOLIC ACID 1 MG TABLET (FP) PO SCH (09:56)
[2023-03-22] MEDS: amLODIPine BESYLATE 10 MG TABLET (FP) PO SCH (09:56)
[2023-03-22] MEDS: FERROUS SO4 325 MG TABLET (FP) PO SCH (09:56)
[2023-03-22 10:15] LABS: CALCIUM 8.6 mg/dL (8.5-10.1)
[2023-03-22 10:19] LABS: CREATININE 0.8 mg/dL (0.55-1.3)
[2023-03-22 10:20] LABS: BILIRUBIN,TOTAL 0.9 mg/dL (0.2-1); TOT PROT 5.7 g/dl (6.4-8.2)
[2023-03-22 10:26] LABS: ALBUMIN 2.9 g/dl (3.4-5.0)
== END 2023-03-22 14:30 | disposition home or self-care (01) | DRG 33 ==
LOC: JER 09:24 → JERBED 15:56 → J8W 03-20 20:17
PROVIDERS: ADMIT Internal Medicine; ATTEND Nurse Practitioner Family
PROC: 00160J6 Bypass Cerebral Ventricle to Peritoneal Cavity with Synthetic Substitute, Open Approach (ICD-10-PCS; 2023-03-20)
PROC: 00P60JZ Removal of Synthetic Substitute from Cerebral Ventricle, Open Approach (ICD-10-PCS; principal; 2023-03-20 15:00)
DX: T85.01XA Breakdown (mechanical) of ventricular intracranial (communicating) shunt, initial encounter (principal); I10 Essential (primary) hypertension; E78.5 Hyperlipidemia, unspecified; K21.9 Gastro-esophageal reflux disease without esophagitis; R50.9 Fever, unspecified; R00.0 Tachycardia, unspecified; Z96.653 Presence of artificial knee joint, bilateral; G96.198 Other disorders of meninges, not elsewhere classified; M50.30 Other cervical disc degeneration, unspecified cervical region; Y83.8 Other surgical procedures as the cause of abnormal reaction of the patient, or of later complication, without mention of misadventure at the time of the procedure; Y92.099 Unspecified place in other non-institutional residence as the place of occurrence of the external cause
CPT/HCPCS: 36415; 70450-TC; 70491-TC; 71046-TC-FY; 72125-TC; 74177-TC; 80048; 80053; 81003; 83605; 83690; 83735; 84100; 84484; 85025; 85610; 85730; 86850; 86900; 86901; 87070; 87075; 87086; 87205; 93005; 93010; 94760; 97116-GP; 97161-GP; 99285-25; J1644; Q9967

== ENCOUNTER 2023-03-29 11:51 | Inpatient (IN) | payer OTHER ==
[2023-03-29 12:10] VITALS: BMI 23.8
[2023-03-29 15:20] LABS: INR 1.09 (0.83-1.09); PROTHROMBIN TIME (PATIENT) 12.6 SEC (9.7-13.0)
[2023-03-29 15:23] LABS: ACTIVATED PTT 26.9 SECONDS (25.2-36.5); BASO % 0.5 % (0-2.0); EOS % 4.9 % (0-4.5); HEMATOCRIT 39.5 % (32.4-45.2); HEMOGLOBIN 13.5 GM/dL (10.7-15.3); LYMPH % 14.2 % (8-40); MCH 29.7 pg (25.7-33.7); MCHC 34.1 g/dl (32.0-36.0); MEAN PLT VOLUME 8.7 fl (7.5-11.1); MONO % 8.7 % (3.8-10.2); NEUT % 71.7 % (42.8-82.8); PLATELET COUNT 468 10^3/uL (134-434); RBC 4.54 M/mm3 (3.60-5.2); RDW 13.5 % (11.6-15.6); WHITE BLOOD COUNT 12.3 K/mm3 (4.0-10.0)
[2023-03-29 15:54] LABS: POTASSIUM 3.5 mmol/L (3.5-5.1)
[2023-03-29 15:55] LABS: CALCIUM 9.2 mg/dL (8.5-10.1)
[2023-03-29 15:57] LABS: ALBUMIN 3.3 g/dl (3.4-5.0)
[2023-03-29 16:00] LABS: CREATININE 0.8 mg/dL (0.55-1.3)
[2023-03-29 16:01] LABS: BILIRUBIN,TOTAL 0.4 mg/dL (0.2-1); TOT PROT 6.3 g/dl (6.4-8.2)
[2023-03-29] MEDS ORDERED: D5-1/2NS+20 MEQ KCL - 20 MEQ/1,000 ML INFUS.BAG IV SCH (16:30)
[2023-03-29] MEDS ORDERED: MAG HYDROX/AL HYDROX/SIMETH 30 ML UNIT-DOSE CUP PO PRN (20:27)
[2023-03-29] MEDS ORDERED: GABAPENTIN 100 MG CAPSULE ONE (20:45)
[2023-03-29] MEDS ORDERED: CYCLOBENZAPRINE HCL 5 MG TABLET ONE (20:45)
[2023-03-29] MEDS ORDERED: ATORVASTATIN CA 20 MG TABLET (FP) ONE (20:45)
[2023-03-29] MEDS ORDERED: ACETAMINOPHEN 325 MG TABLET (FP) ONE (20:45)
[2023-03-29] MEDS ORDERED: MAG HYDROX/AL HYDROX/SIMETH 30 ML UNIT-DOSE CUP ONE (20:46)
[2023-03-29] MEDS: CYCLOBENZAPRINE HCL 5 MG TABLET PO SCH (21:21)
[2023-03-29] MEDS: GABAPENTIN 100 MG CAPSULE PO SCH (21:21)
[2023-03-29] MEDS: ACETAMINOPHEN 325 MG TABLET (FP) PO SCH (21:21)
[2023-03-29] MEDS ORDERED: ATORVASTATIN CA 10 MG TABLET (FP) PO SCH (22:00)
[2023-03-29] MEDS ORDERED: MELATONIN 5 MG TABLETS PO PRN (23:17)
[2023-03-29] MEDS ORDERED: MELATONIN 5 MG TABLETS ONE (23:38)
[2023-03-30] MEDS: CYCLOBENZAPRINE HCL 5 MG TABLET PO SCH ×2 (05:04→22:23)
[2023-03-30] MEDS: GABAPENTIN 100 MG CAPSULE PO SCH ×2 (05:04→22:23)
[2023-03-30] MEDS: ACETAMINOPHEN 325 MG TABLET (FP) PO SCH (05:04)
[2023-03-30 07:50] LABS: BASO % 0.8 % (0-2.0); EOS % 8.9 % (0-4.5); HEMATOCRIT 35.3 % (32.4-45.2); HEMOGLOBIN 11.7 GM/dL (10.7-15.3); MCH 29.2 pg (25.7-33.7); MCHC 33.1 g/dl (32.0-36.0); MEAN CELL VOLUME 88.1 fl (80-96); MEAN PLT VOLUME 8.7 fl (7.5-11.1); MONO % 11.6 % (3.8-10.2); NEUT % 57.7 % (42.8-82.8); PLATELET COUNT 356 10^3/uL (134-434); RDW 13.3 % (11.6-15.6); WHITE BLOOD COUNT 7.8 K/mm3 (4.0-10.0)
[2023-03-30 08:16] LABS: POTASSIUM 3.7 mmol/L (3.5-5.1)
[2023-03-30 08:18] LABS: BLOOD UREA NITROGEN 10.5 mg/dL (7-18); CALCIUM 8.5 mg/dL (8.5-10.1)
[2023-03-30 08:20] LABS: ALBUMIN 2.8 g/dl (3.4-5.0)
[2023-03-30 08:23] LABS: BILIRUBIN,TOTAL 0.3 mg/dL (0.2-1); CREATININE 0.7 mg/dL (0.55-1.3); TOT PROT 5.3 g/dl (6.4-8.2)
[2023-03-30] MEDS ORDERED: LOSARTAN POTASSIUM 50 MG TABLET ONE (09:20)
[2023-03-30] MEDS ORDERED: LOSARTAN POTASSIUM 50 MG TABLET PO SCH (10:00)
[2023-03-30] MEDS ORDERED: GENTAMICIN SO4 80 MG/2 ML VIAL ONE ×2 (13:45→13:52)
[2023-03-30] MEDS ORDERED: THROMBIN (BOVINE) 5,000 UNIT VIAL TP ONE ×2 (13:45→15:13)
[2023-03-30] MEDS ORDERED: LIDOCAINE 1%/EPI 1:100000 (20 ML MULTI DOSE VIAL) ONE (13:47)
[2023-03-30] MEDS ORDERED: ONDANSETRON 4 MG/2 ML VIAL IVPUSH PRN ×2 (14:28→17:14)
[2023-03-30] MEDS ORDERED: LACTATED RINGERS SOLUTION 1,000 ML IV SCH (14:30)
[2023-03-30] MEDS ORDERED: ceFAZolin SODIUM 1 GM VIAL IVPB ONE ×2 (14:42→14:50)
[2023-03-30] MEDS ORDERED: VANCOMYCIN 1 GM in D5W (PRE-DOCKED) 1,000 MG/250 ML (RESTRICTED TO ID ONLY IVPB ONE ×2 (14:43→14:58)
[2023-03-30] MEDS ORDERED: LIDOCAINE 1%/EPI 1:100000 (20 ML MULTI DOSE VIAL) IJ ONE (14:43)
[2023-03-30] MEDS ORDERED: amLODIPine BESYLATE 10 MG TABLET (FP) PO SCH (15:00)
[2023-03-30] MEDS ORDERED: HYDROGEN PEROXIDE 473 ML PO ONE (15:14)
[2023-03-30] MEDS ORDERED: GENTAMICIN SO4 80 MG/2 ML VIAL IVPB ONE (15:14)
[2023-03-30] MEDS ORDERED: HALOPERIDOL LACTATE 5 MG/ML IM ONE (17:05)
[2023-03-30] MEDS ORDERED: diphenhydrAMINE HCL 25 MG CAPSULE (FP) PO PRN (17:14)
[2023-03-30] MEDS ORDERED: oxyCODONE HCL 5 MG TABLET PO PRN ×2 (17:14)
[2023-03-30] MEDS ORDERED: MAG HYDROX/AL HYDROX/SIMETH 30 ML UNIT-DOSE CUP PO PRN (17:22)
[2023-03-30] MEDS: ACETAMINOPHEN 1000 MG/100 ML BAG IVPB SCH ×2 (17:27→22:58)
[2023-03-30] MEDS ORDERED: HALOPERIDOL LACTATE 5 MG/ML IVPUSH ONE (19:15)
[2023-03-30] MEDS ORDERED: ATORVASTATIN CA 10 MG TABLET (FP) PO SCH (22:00)
[2023-03-30] MEDS: DOCUSATE SODIUM 100 MG CAPSULE (FP) PO SCH (22:23)
[2023-03-30] MEDS: HEPARIN NA (PORCINE) 5,000 UNITS/ML 1ML VIAL SQ SCH (22:23)
[2023-03-30] MEDS: CEFAZOLIN 1 GM in DEXTROSE 5%-WATER - 50 ML IVPB SCH (22:24)
[2023-03-31] MEDS: ACETAMINOPHEN 1000 MG/100 ML BAG IVPB SCH (06:12)
[2023-03-31] MEDS: DOCUSATE SODIUM 100 MG CAPSULE (FP) PO SCH ×3 (06:13→22:34)
[2023-03-31] MEDS: GABAPENTIN 100 MG CAPSULE PO SCH ×3 (06:13→22:34)
[2023-03-31] MEDS: CYCLOBENZAPRINE HCL 5 MG TABLET PO SCH ×3 (06:15→22:34)
[2023-03-31] MEDS: HEPARIN NA (PORCINE) 5,000 UNITS/ML 1ML VIAL SQ SCH ×3 (06:15→22:35)
[2023-03-31] MEDS: CEFAZOLIN 1 GM in DEXTROSE 5%-WATER - 50 ML IVPB SCH (06:24)
[2023-03-31] MEDS ORDERED: ACETAMINOPHEN 500 MG TABLET (FP) PO PRN ×2 (07:37→07:39)
[2023-03-31] MEDS ORDERED: oxyCODONE HCL 5 MG TABLET PO PRN (07:38)
[2023-03-31] MEDS ORDERED: MAG HYDROX/AL HYDROX/SIMETH 30 ML UNIT-DOSE CUP PO PRN (07:44)
[2023-03-31] MEDS ORDERED: ONDANSETRON 4 MG/2 ML VIAL IVPUSH PRN (07:44)
[2023-03-31] MEDS ORDERED: diphenhydrAMINE HCL 25 MG CAPSULE (FP) PO PRN (07:44)
[2023-03-31 09:30] LABS: HEMATOCRIT 38.7 % (32.4-45.2); MCH 29.5 pg (25.7-33.7); MCHC 33.5 g/dl (32.0-36.0); MEAN PLT VOLUME 8.9 fl (7.5-11.1); PLATELET COUNT 461 10^3/uL (134-434); RDW 13.7 % (11.6-15.6); WHITE BLOOD COUNT 16.2 K/mm3 (4.0-10.0)
[2023-03-31] MEDS ORDERED: LOSARTAN POTASSIUM 50 MG TABLET PO SCH (10:00)
[2023-03-31] MEDS ORDERED: FERROUS SO4 325 MG TABLET (FP) PO SCH (10:00)
[2023-03-31] MEDS ORDERED: FOLIC ACID 1 MG TABLET (FP) PO SCH (10:00)
[2023-03-31 10:01] LABS: POTASSIUM 4.1 mmol/L (3.5-5.1)
[2023-03-31] MEDS: FERROUS SO4 325 MG TABLET (FP) PO SCH (10:04)
[2023-03-31] MEDS: LOSARTAN POTASSIUM 50 MG TABLET PO SCH (10:04)
[2023-03-31] MEDS: FOLIC ACID 1 MG TABLET (FP) PO SCH (10:05)
[2023-03-31 10:07] LABS: BLOOD UREA NITROGEN 10.5 mg/dL (7-18); CALCIUM 8.8 mg/dL (8.5-10.1)
[2023-03-31 10:11] LABS: CREATININE 0.9 mg/dL (0.55-1.3)
[2023-03-31 12:52] LABS: EPI CELLS >36 /uL (0-25.1); HYALINE CASTS 0 /uL (0-3.1); PH,URINE 8.5 (5.0-8.0); URINE APPEARANCE CLEAR; URINE BACTERIA 542 /uL (0-1359); URINE BILIRUBIN NEGATIVE (NEGATIVE); URINE COLOR YELLOW; URINE GLUCOSE (UA) NEGATIVE (NEGATIVE); URINE KETONE NEGATIVE (NEGATIVE); URINE LEUK ESTERASE 1+ (NEGATIVE); URINE NITRITE NEGATIVE (NEGATIVE); URINE PROTEIN NEGATIVE (NEGATIVE); URINE RBC 6 /uL (0-23.9); URINE UROBILINOGEN 0.2 mg/dL (0.2-1.0); URINE WBC 18 /uL (0-25.8)
[2023-03-31] MEDS: amLODIPine BESYLATE 10 MG TABLET (FP) PO SCH (14:54)
[2023-03-31] MEDS ORDERED: amLODIPine BESYLATE 10 MG TABLET (FP) PO SCH (15:00)
[2023-03-31] MEDS ORDERED: ATORVASTATIN CA 10 MG TABLET (FP) PO SCH (22:00)
[2023-04-01] MEDS: METOPROLOL TARTRATE 25 MG TABLET (FP) PO SCH ×2 (00:39→09:27)
[2023-04-01] MEDS: CYCLOBENZAPRINE HCL 5 MG TABLET PO SCH ×3 (06:41→21:46)
[2023-04-01] MEDS: DOCUSATE SODIUM 100 MG CAPSULE (FP) PO SCH ×3 (06:41→15:09)
[2023-04-01] MEDS: GABAPENTIN 100 MG CAPSULE PO SCH ×4 (06:41→21:46)
[2023-04-01] MEDS: HEPARIN NA (PORCINE) 5,000 UNITS/ML 1ML VIAL SQ SCH ×3 (06:41→21:46)
[2023-04-01 07:54] LABS: HEMATOCRIT 40.3 % (32.4-45.2); HEMOGLOBIN 13.2 GM/dL (10.7-15.3); MCH 29.2 pg (25.7-33.7); MCHC 32.7 g/dl (32.0-36.0); MEAN CELL VOLUME 89.1 fl (80-96); MEAN PLT VOLUME 8.9 fl (7.5-11.1); PLATELET COUNT 461 10^3/uL (134-434); RBC 4.52 M/mm3 (3.60-5.2); RDW 13.5 % (11.6-15.6); WHITE BLOOD COUNT 25.6 K/mm3 (4.0-10.0)
[2023-04-01 08:09] LABS: POTASSIUM 3.4 mmol/L (3.5-5.1)
[2023-04-01 08:15] LABS: BLOOD UREA NITROGEN 14.1 mg/dL (7-18); CALCIUM 8.9 mg/dL (8.5-10.1)
[2023-04-01 08:19] LABS: CREATININE 0.8 mg/dL (0.55-1.3)
[2023-04-01] MEDS: LOSARTAN POTASSIUM 50 MG TABLET PO SCH (09:27)
[2023-04-01] MEDS: FOLIC ACID 1 MG TABLET (FP) PO SCH (09:28)
[2023-04-01] MEDS: FERROUS SO4 325 MG TABLET (FP) PO SCH (09:28)
[2023-04-01 09:45] LABS: ANISOCYTOSIS 1+; MACROCYTOSIS 0; OVALOCYTE 1+; TEAR DROP CELLS 1+
[2023-04-01] MEDS ORDERED: VANCOMYCIN 1 GM PREMIX - 1 GM/200 ML BAG IVPB ONE ×2 (12:29→17:14)
[2023-04-01] MEDS ORDERED: PIPERACILLIN/TAZOB 3.375 GM 3.375 GM in DEXTROSE 5%-WATER - 50 ML IVPB ONE (12:29)
[2023-04-01] MEDS ORDERED: VANCOMYCIN/WATER FOR INJ (PEG) 1 GM/200 ML BAG IVPB ONE (12:32)
[2023-04-01] MEDS: amLODIPine BESYLATE 10 MG TABLET (FP) PO SCH (14:49)
[2023-04-01] MEDS ORDERED: METOPROLOL TARTRATE 5 MG/5 ML VIAL IVPUSH ONE (15:41)
[2023-04-01] MEDS ORDERED: PIPERACILLIN/TAZOB 3.375 GM 3.375 GM in DEXTROSE 5%-WATER - 50 ML IVPB SCH ×2 (15:45→18:00)
[2023-04-01] MEDS ORDERED: VANCOMYCIN 1,000 MG in DEXTROSE 5%-WATER - 250 ML IVPB SCH (15:45)
[2023-04-01] MEDS ORDERED: FENTANYL CITRATE/PF 50 MCG/ML VIAL IVPUSH ONE (16:00)
[2023-04-01] MEDS ORDERED: CEFEPIME 2 GM in DEXTROSE 5%-WATER 100 ML IVPB SCH (16:30)
[2023-04-01 16:50] LABS: HEMATOCRIT 41.3 % (32.4-45.2); HEMOGLOBIN 13.4 GM/dL (10.7-15.3); MCH 28.9 pg (25.7-33.7); MCHC 32.4 g/dl (32.0-36.0); MEAN CELL VOLUME 89.1 fl (80-96); MEAN PLT VOLUME 8.6 fl (7.5-11.1); PLATELET COUNT 439 10^3/uL (134-434); RBC 4.64 M/mm3 (3.60-5.2); RDW 13.6 % (11.6-15.6); WHITE BLOOD COUNT 24.1 K/mm3 (4.0-10.0)
[2023-04-01] MEDS ORDERED: ONDANSETRON 4 MG/2 ML VIAL IVPUSH PRN (17:14)
[2023-04-01] MEDS ORDERED: MAG HYDROX/AL HYDROX/SIMETH 30 ML UNIT-DOSE CUP PO PRN (17:14)
[2023-04-01 17:26] LABS: POTASSIUM 3.5 mmol/L (3.5-5.1)
[2023-04-01 17:28] LABS: CALCIUM 9.1 mg/dL (8.5-10.1)
[2023-04-01 17:29] LABS: ALBUMIN 3.1 g/dl (3.4-5.0); BLOOD UREA NITROGEN 14.2 mg/dL (7-18)
[2023-04-01 17:30] LABS: MAGNESIUM 2.1 mg/dL (1.8-2.4)
[2023-04-01 17:32] LABS: CREATININE 0.8 mg/dL (0.55-1.3); PHOSPHOROUS 2.6 mg/dL (2.5-4.9)
[2023-04-01 17:33] LABS: TOT PROT 6.2 g/dl (6.4-8.2)
[2023-04-01] MEDS: MEROPENEM 1 GM in DEXTROSE 5%-WATER 100 ML IVPB SCH (17:33)
[2023-04-01 17:34] LABS: BILIRUBIN,TOTAL 0.6 mg/dL (0.2-1)
[2023-04-01 17:36] LABS: ANISOCYTOSIS 1+; MACROCYTOSIS 0
[2023-04-01] MEDS: MUPIROCIN 2% TOPICAL OINTMENT FOR DECOLONIZATION NS SCH ×2 (18:06→23:06)
[2023-04-01] MEDS: METOPROLOL TARTRATE 5 MG/5 ML VIAL IVPUSH PRN (19:55)
[2023-04-01] MEDS ORDERED: ATORVASTATIN CA 10 MG TABLET (FP) PO SCH (22:00)
[2023-04-01] MEDS ORDERED: CHLORHEXIDINE GLUCONATE 4% CLEANSER FOR DECOLONIZATION TP SCH (22:00)
[2023-04-02] MEDS: MEROPENEM 1 GM in DEXTROSE 5%-WATER 100 ML IVPB SCH ×2 (01:15→10:18)
[2023-04-02] MEDS ORDERED: VANCOMYCIN/WATER FOR INJ (PEG) 1,000 MG/200 ML BAG IVPB SCH ×2 (03:00→15:00)
[2023-04-02] MEDS: CYCLOBENZAPRINE HCL 5 MG TABLET PO SCH (06:32)
[2023-04-02] MEDS: HEPARIN NA (PORCINE) 5,000 UNITS/ML 1ML VIAL SQ SCH (06:32)
[2023-04-02] MEDS: GABAPENTIN 100 MG CAPSULE PO SCH (06:33)
[2023-04-02 08:05] LABS: INR 1.21 (0.83-1.09)
[2023-04-02 08:24] LABS: CHLORIDE 103 mmol/L (98-107); SODIUM 137 mmol/L (136-145)
[2023-04-02 08:30] LABS: CALCIUM 8.9 mg/dL (8.5-10.1)
[2023-04-02 08:31] LABS: ALBUMIN 2.9 g/dl (3.4-5.0); BLOOD UREA NITROGEN 16.5 mg/dL (7-18); CO2 23 mmol/L (21-32); GLUCOSE,RANDOM 118 mg/dL (74-106); MAGNESIUM 2.3 mg/dL (1.8-2.4)
[2023-04-02 08:33] LABS: BASO % 0.3 % (0-2.0); HEMATOCRIT 42.7 % (32.4-45.2); HEMOGLOBIN 13.6 GM/dL (10.7-15.3); LYMPH % 4.2 % (8-40); MCH 28.4 pg (25.7-33.7); MCHC 31.9 g/dl (32.0-36.0); MEAN PLT VOLUME 9.2 fl (7.5-11.1); MONO % 6.8 % (3.8-10.2); NEUT % 88.7 % (42.8-82.8); PLATELET COUNT 430 10^3/uL (134-434); RDW 13.4 % (11.6-15.6); WHITE BLOOD COUNT 19.9 K/mm3 (4.0-10.0)
[2023-04-02 08:34] LABS: CREATININE 0.6 mg/dL (0.55-1.3); PHOSPHOROUS 2.2 mg/dL (2.5-4.9); SGOT/AST 14 U/L (15-37); SGPT/ALT 12 U/L (13-61)
[2023-04-02 08:35] LABS: BILIRUBIN,TOTAL 0.9 mg/dL (0.2-1)
[2023-04-02 08:36] LABS: TOT PROT 6.2 g/dl (6.4-8.2)
[2023-04-02 08:37] LABS: ALK PHOS 118 U/L (45-117)
[2023-04-02] MEDS: METOPROLOL TARTRATE 5 MG/5 ML VIAL IVPUSH PRN ×2 (08:39→12:25)
[2023-04-02 09:17] LABS: ANION GAP 12 mmol/L (4-13); POTASSIUM 2.9 mmol/L (3.5-5.1)
[2023-04-02] MEDS ORDERED: LOSARTAN POTASSIUM 50 MG TABLET PO SCH (10:00)
[2023-04-02] MEDS ORDERED: METOPROLOL TARTRATE 25 MG TABLET (FP) PO SCH (10:00)
[2023-04-02] MEDS: MUPIROCIN 2% TOPICAL OINTMENT FOR DECOLONIZATION NS SCH (10:15)
[2023-04-02 10:18] VITALS: TEMP 98.8
[2023-04-02] MEDS ORDERED: POTASSIUM PHOSPHATE 30 MM in SODIUM CHLORIDE 250 ML IVPB ONE (11:30)
[2023-04-02 12:26] VITALS: BP 182/103; PULSE 131
[2023-04-02 12:43] VITALS: RESP 16
[2023-04-02] MEDS ORDERED: KCL 10 MEQ IVPB 10 MEQ/100 ML INFUS.BAG IVPB ONE (14:00)
[2023-04-02] MEDS ORDERED: amLODIPine BESYLATE 10 MG TABLET (FP) PO SCH (15:00)
== END 2023-04-02 14:06 | disposition short-term general hospital (02) | DRG 908 ==
LOC: JER 11:51 → JERBED 13:49 → J4S 03-30 20:41 → JICU 04-01 14:22
PROVIDERS: ADMIT Family Medicine; ATTEND Family Medicine
PROC: 00W Central Nervous System and Cranial Nerves, Revision (ICD-10-PCS; 2023-03-30)
PROC: 00QT0ZZ Repair Spinal Meninges, Open Approach (ICD-10-PCS; 2023-03-30)
PROC: 0RP104Z Removal of Internal Fixation Device from Cervical Vertebral Joint, Open Approach (ICD-10-PCS; 2023-03-30)
PROC: 4A1004G Monitoring of Central Nervous Electrical Activity, Intraoperative, Open Approach (ICD-10-PCS; 2023-03-30)
PROC: 0RG20A0 Fusion of 2 or more Cervical Vertebral Joints with Interbody Fusion Device, Anterior Approach, Anterior Column, Open Approach (ICD-10-PCS; principal; 2023-03-30 15:00)
DX: G97.41 Accidental puncture or laceration of dura during a procedure (principal); I47.10 Supraventricular tachycardia, unspecified; I97.89 Other postprocedural complications and disorders of the circulatory system, not elsewhere classified; G96.198 Other disorders of meninges, not elsewhere classified; I10 Essential (primary) hypertension; K21.9 Gastro-esophageal reflux disease without esophagitis; E78.5 Hyperlipidemia, unspecified; Y83.9 Surgical procedure, unspecified as the cause of abnormal reaction of the patient, or of later complication, without mention of misadventure at the time of the procedure
CPT/HCPCS: 36415; 70450-TC; 70490-TC; 71045-TC-FY; 72125-TC; 76000-TC-FY; 80048; 80053; 81003; 83605; 83735; 84100; 84439; 84443; 84484; 85025; 85027; 85610; 85730; 86850; 86900; 86901; 87040; 87070; 87086; 87186; 87205; 87635; 93005; 93010; 93306-TC; 94010; 94760; 97116-GP; 97162-GP; 99285-25; C1713; J1644